=== PATIENT | female | born 1950 | race Two or more races ===

== ENCOUNTER 2016-04-27 21:31 | Inpatient (IN) | payer MEDICARE, MEDICAID ==
[~2016-04-27] VITALS: Ht 162.6 cm; Wt 61.2 kg
[~2016-04-27 21:31] MED LIST: CHANTIX1 MG PO; CITALOPRAM HBR40 M1 ORAL; DOCUSATE SODIU100 MG ORAL; GABAPENTIN300 MG ORAL; HEPARIN SO5000 UNIT2 SUBQ; SPIRIVA18 MCG INH
[2016-04-27] MEDS ORDERED: Albuterol ud Inhalation HHN ONE (21:45)
[2016-04-27] MEDS ORDERED: Ipratropium 0.02% Inh Soln 2.5ml UD HHN ONE (21:45)
[2016-04-27] MEDS ORDERED: Solu-MEDROL 125mg Inj IVP ONE (21:45)
--- NOTE | 2016-04-27 21:47 | Emergency Room Report ---
History of Present Illness General Chief Complaint: Chest Pain Source: Patient, EMS Present Illness HPI The patient presents with left-sided chest pain. Is pleuritic. Began while she was watching a football game. She's been wheezing and coughing up greenish brown phlegm. She does have a history of COPD in the past. The pain is sharp and does not radiate. Pain is sever 10/10 sharp. The patient had right shoulder surgery recently. She denies any swelling in her legs or pain. She denies any blood clots in the past. She denies fevers and chills. There is no nausea vomiting diarrhea dysuria. EMS gave the patient aspirin with some relief. Allergies: Coded Allergies: No Known Allergies (Unverified , 04/27/16) Patient History Past Medical History: see triage record Past Surgical History: other - Shoulder surgery Social History: Reports: smoking, Denies: alcohol use, drug use Social History Narrative rehab facility Reviewed Nursing Documentation: PMH: Agreed, PSxH: Agreed Nursing Documentation-PMH Past Medical History: No History, Except For History Of Psychiatric Problem: Yes - BIPOLAR Physical Exam Vital Signs Date Time Temp Pulse Resp B/P Pulse Ox O2 Delivery O2 Flow Rate FiO2 04/27/16 21:22 98.4 103 16 106/72 98 Room Air Sp02 EP Interpretation: reviewed, normal General Appearance: well appearing, no apparent distress, GCS 15 Head: normocephalic Eyes: bilateral eye PERRL, bilateral eye normal inspection ENT: moist mucus membranes Neck: supple Respiratory: rhonchi, wheezing, expiration, inspiration Cardiovascular #1: regular rate, rhythm Cardiovascular #2: 2+ radial (R) Gastrointestinal: normal inspection, normal bowel sounds, non tender, no mass, non-distended Musculoskeletal: digits/nails normal, no calf tenderness, Genesis's Sign negative , other - R shoulder in immobilizer Neurologic: alert, oriented x3 Psychiatric: mood/affect normal - concrete thinking Skin: normal inspection, warm/dry Medical Decision Making Diagnostic Impression: Primary Impression: Pneumonia Qualified Codes: J18.9 - Pneumonia, unspecified organism Additional Impressions: Bronchospasm Status post shoulder replacement Qualified Codes: Z96.611 - Presence of right artificial shoulder joint ER Course The patient presents with left-sided pleuritic chest pain. Exam has evidence of bronchospasm. Differential includes pneumonia, pleurisy, pulmonary embolus, acute coronary syndrome amongst others. Emergent evaluation is undertaken EKG, labs, chest x-ray. The patient received aspirin in the field. She has some relief with this. Will focus on treating bronchospasm and also giving her analgesia. EKG is normal, chest x-ray shows left lower lobe infiltrate with some scarring bilaterally. Plantar significant for negative troponin and elevated white count. The patient is improved after breathing treatments. She was still complaining about pain and therefore morphine was ordered. She had some relief with this. Clinically there is no evidence of pulmonary embolus. The patient is admitted to medical floor under the care of Dr. Malagon. Laboratory Tests Test 04/27/16 21:55 04/27/16 22:30 04/27/16 23:20 White Blood Count 17.0 K/UL (4.8-10.8) H Red Blood Count 3.71 M/UL (4.20-5.40) L Hemoglobin 10.6 G/DL (12.0-16.0) L Hematocrit 34.1 % (37.0-47.0) L Mean Corpuscular Volume 92 FL (80-99) Mean Corpuscular Hemoglobin 28.6 PG (27.0-31.0) Mean Corpuscular Hemoglobin Concent 31.1 G/DL (32.0-36.0) L Red Cell Distribution Width 16.1 % (11.6-14.8) H Platelet Count 686 K/UL (150-450) H Mean Platelet Volume 5.0 FL (6.5-10.1) L Neutrophils (%) (Auto) 75.6 % (45.0-75.0) H Lymphocytes (%) (Auto) 12.2 % (20.0-45.0) L Monocytes (%) (Auto) 8.7 % (1.0-10.0) Eosinophils (%) (Auto) 2.1 % (0.0-3.0) Basophils (%) (Auto) 1.5 % (0.0-2.0) Sodium Level 138 mEQ/L (135-145) Potassium Level 3.9 mEQ/L (3.4-4.9) Chloride Level 96 mEQ/L (98-107) L Carbon Dioxide Level 32 mEQ/L (20-30) H Anion Gap 10 (5-15) Blood Urea Nitrogen 6 mg/dL (7-23) L Creatinine 0.6 mg/dL (0.5-0.9) Estimate Glomerular Filtration Rate > 60 mL/min (>60) Glucose Level 99 mg/dL (74-106) Lactic Acid Level 1.10 mmol/L (0.66-2.22) Calcium Level 9.1 mg/dL (8.6-10.2) Total Bilirubin 0.3 mg/dL (0.0-1.2) Aspartate Amino Transferase (AST) 21 U/L (5-40) Alanine Aminotransferase (ALT) 25 U/L (3-33) Alkaline Phosphatase 144 U/L (35-104) H Troponin I < 0.30 ng/mL (<=0.30) Total Protein 7.3 g/dL (6.6-8.7) Albumin 3.1 g/dL (3.5-5.2) L Globulin 4.2 g/dL Albumin/Globulin Ratio 0.7 (1.0-2.7) L Pro-B-Type Natriuretic Peptide 103 pg/mL (0-125) Urine Color Yellow Urine Appearance Clear Urine pH 7 (4.5-8.0) Urine Specific [place] 1.005 (1.005-1.035) Urine Protein Negative (NEGATIVE) Urine Glucose (UA) Negative (NEGATIVE) Urine Ketones Negative (NEGATIVE) Urine Occult Blood 1+ (NEGATIVE) H Urine Nitrite Negative (NEGATIVE) Urine Bilirubin Negative (NEGATIVE) Urine Urobilinogen 8 MG/DL (0.0-1.0) H Urine Leukocyte Esterase 1+ (NEGATIVE) H Urine RBC 0-2 /HPF (0 - 2) Urine WBC 0-2 /HPF (0 - 2) Urine Squamous Epithelial Cells Many /LPF (NONE/OCC) H Urine Bacteria Few /HPF (NONE) Microbiology Date/Time Source Procedure Growth Status 04/27/16 21:58 Nasal Nares Influenza Types A,B Antigen (TRACY) - Final Complete EKG Diagnostic Results Rate: normal Rhythm: NSR ST Segments: no acute changes Rhythm Strip Diag. Results EP Interpretation: yes Rhythm: NSR, no PVC's, no ectopy Chest X-Ray Diagnostic Results EP Interpretation: Yes Findings: no effusion, no pneumothorax, other - L infiltrate and scarring Number of Views: 1 Last Vital Signs Date Time Temp Pulse Resp B/P Pulse Ox O2 Delivery O2 Flow Rate FiO2 04/28/16 00:50 99.2 97 15 96/70 93 Nasal Cannula 2.0 92 Status: improved Disposition: ADMITTED INPATIENT Condition: Serious Alireza Roque M.D. Apr 27, 2016 21:47
[2016-04-27 22:08] LABS: BASOPHILS % (AUTO) 1.5 % (0.0-2.0); EOSINOPHILS % (AUTO) 2.1 % (0.0-3.0); LYMPHOCYTES % (AUTO) 12.2 % (20.0-45.0); MEAN CORPUSCULAR HEMOGLOBIN 28.6 PG (27.0-31.0); MEAN CORPUSCULAR HGB CONC 31.1 G/DL (32.0-36.0); MEAN CORPUSCULAR VOLUME 92 FL (80-99); MONOCYTES % (AUTO) 8.7 % (1.0-10.0); NEUTROPHILS % (AUTO) 75.6 % (45.0-75.0); PLATELET COUNT 686 K/UL (150-450); RED BLOOD COUNT 3.71 M/UL (4.20-5.40); RED CELL DISTRIBUTION WIDTH 16.1 % (11.6-14.8)
[2016-04-27 22:21] LABS: TROPONIN I < 0.30 ng/mL (<=0.30)
[2016-04-27 22:22] LABS: ALANINE AMINOTRANSFERASE 25 U/L (3-33); ALBUMIN/GLOBULIN RATIO 0.7 (1.0-2.7); ANION GAP 10 (5-15); ASPARTATE AMINO TRANSFERASE 21 U/L (5-40); CALCIUM 9.1 mg/dL (8.6-10.2); CARBON DIOXIDE 32 mEQ/L (20-30); CHLORIDE 96 mEQ/L (98-107); CREATININE 0.6 mg/dL (0.5-0.9); GLOMERULAR FILTRATION RATE > 60 mL/min (>60); HEMOLYSIS 1; POTASSIUM 3.9 mEQ/L (3.4-4.9); SODIUM 138 mEQ/L (135-145); TOTAL PROTEIN 7.3 g/dL (6.6-8.7)
[2016-04-27] MEDS ORDERED: Azithromycin 500 MG in NS 275 ML IVPB ONE (22:30)
[2016-04-27] MEDS ORDERED: Morphine Sulfate 4mg/ml Inj IVP ONE (22:30)
[2016-04-27] MEDS ORDERED: cefTRIAXone 1 GM in NS 55 ML IVPB ONE (22:30)
[2016-04-27] MEDS ORDERED: Azithromycin Inj IV ONE (22:51)
[2016-04-27 23:11] VITALS: BP 114/61
[2016-04-27 23:37] LABS: APPEARANCE,URINE CLEAR; KETONES,URINE NEGATIVE (NEGATIVE); LEUKOCYTE ESTERASE ,URINE 1+ (NEGATIVE); NITRITE,URINE NEGATIVE (NEGATIVE); PH,URINE 7 (4.5-8.0); PROTEIN,URINE NEGATIVE (NEGATIVE); UROBILINOGEN,URINE 8 MG/DL (0.0-1.0)
[2016-04-27 23:38] VITALS: BP 122/68
[2016-04-27] MEDS ORDERED: Morphine Sulfate 2mg/ml Inj IVP PRN (23:45)
[2016-04-27] MEDS ORDERED: Milk of Magnesia 30ml Ud ORAL PRN (23:45)
[2016-04-27 23:51] LABS: BACTERIA,URINE FEW /HPF; RBC,URINE 0-2 /HPF (0 - 2); SQUAMOUS EPITHELIAL CELL,UR MANY /LPF (NONE/OCC); WBC,URINE 0-2 /HPF (0 - 2)
[2016-04-28] VITALS (8 sets, daily range): BP systolic 92–147; BP diastolic 53–82
[2016-04-28] MEDS: DuoNeb 0.5-3(2.5)mg/3ml neb HHN SCH ×4 (02:00→23:49)
[2016-04-28] MEDS: Heparin 5000 units/ml inj SUBQ SCH ×3 (02:04→21:17)
[2016-04-28] MEDS: Citalopram 20mg Tab ORAL SCH (08:31)
[2016-04-28] MEDS: Docusate 100mg cap ORAL SCH ×2 (08:32→18:08)
[2016-04-28] MEDS: Morphine Sulfate 4mg/ml Inj IVP PRN ×5 (08:34→21:14)
--- NOTE | 2016-04-28 08:53 | Diagnostic Imaging Report ---
Indications: Shortness of breath, COPD Technique: Portable AP chest Findings: Comparison: None Patchy ovular opacity is present in the lateral aspect of left lung base, obscuring the left costophrenic angle. Increased interstitial markings are present in both lower lung zones. Central pulmonary vasculature prominent. Heart size, peripheral pulmonary vasculature within normal limits. No right pleural abnormality. Right shoulder prosthesis. Chronic appearing contour deformity mid diaphysis left clavicle. IMPRESSION: Left lower lobe alveolar opacity compatible with but not specific for pneumonia Associated small left pleural effusion not excludable Superimposed pulmonary bibasal interstitial disease, nonspecific, acuity indeterminate. This may be chronic in the setting of COPD. Acute interstitial infiltrate, whether congestive or inflammatory cannot be excluded. Suggestion of development of pulmonary arterial hypertension Previous right shoulder arthroplasty Old, healed left clavicle fracture
[2016-04-28] MEDS ORDERED: cefTRIAXone 1 GM in D5W 50 ML IV SCH (21:00)
[2016-04-29] VITALS: BP 102/69
[2016-04-29] MEDS: Morphine Sulfate 4mg/ml Inj IVP PRN ×5 (00:29→21:44)
[2016-04-29 04:00] VITALS: BP 106/71
--- NOTE | 2016-04-29 04:47 | History and Physical Report ---
DATE OF ADMISSION: 04/27/2016 CHIEF COMPLAINT: Left-sided chest pain, cough, and sputum production. HISTORY OF PRESENT ILLNESS: The patient is a 65-year-old female, who was at [facility] in end of March for right shoulder surgery. She said that she was discharged to [facility]. She has been coughing and having sputum production for the past week. Last night she was watching TV, a football game and she started having severe left-sided chest pain, which was pleuritic. The patient was seen in the emergency room here and was admitted with diagnosis of pneumonia. She does have left lower lung density, which is consistent with an infiltrate. She tells me that even in March when she was at [facility], she was told by her steel wheel engraver that she had pneumonia. It is unclear if she was continued on antibiotics in the [place] [facility]. In any case, I would not cut part of her medication list. The patient has a long history of smoking 50 pack a year, but she stopped three months ago. PAST MEDICAL HISTORY: Includes depression. There is a report that patient is bipolar, but she denies it. There is history of right shoulder surgery as mentioned. MEDICATIONS: Reviewed. ALLERGIES: No known drug allergies. SOCIAL HISTORY: Previous smoker. No history of alcohol abuse. REVIEW OF SYSTEMS: Noncontributory except above. PHYSICAL EXAMINATION: GENERAL: The patient is a pleasant female, in no acute distress. VITAL SIGNS: Blood pressure 96/54, pulse 88, temperature 97.4, and respiratory rate is 21. HEENT: Somewhat pale conjunctivae. Anicteric sclerae. NECK: Supple. Lungs crackles bibasilar. ABDOMEN: Soft, nontender. EXTREMITIES: No cyanosis or edema. The patient has right shoulder in a sling. LABORATORY FINDINGS: [place] [address], hematocrit 34.1, hemoglobin is 10.6, and platelets 686,000. Chemistry panel shows serum sodium 138, potassium 3.9, chloride 96, CO2 10, BUN 6, creatinine 0.6. AST 21 and ALT 25. ASSESSMENT: This is a 65-year-old female, who was admitted with diagnosis of pneumonia, left lower lobe. She has history of chronic obstructive pulmonary disease. The question is if she has underlying malignancy since it appears to be a prolonged pneumonia now a few weeks. PLAN: The patient was already started on IV antibiotics, bronchodilators, and pain medication. The patient will be seen by pulmonary consultation. I will order a CT scan of the chest to see if the patient does have any mass. Gabriel Malagon M.D. DR: Sapna JOB#: [id number] CC:
[2016-04-29] MEDS: DuoNeb 0.5-3(2.5)mg/3ml neb HHN SCH ×3 (07:29→23:30)
[2016-04-29 08:15] VITALS: BP 109/76
[2016-04-29] MEDS: Citalopram 20mg Tab ORAL SCH (08:18)
[2016-04-29] MEDS: Docusate 100mg cap ORAL SCH ×2 (08:19→17:35)
[2016-04-29] MEDS: Heparin 5000 units/ml inj SUBQ SCH ×2 (08:26→21:42)
[2016-04-29 11:59] VITALS: BP 101/65
--- NOTE | 2016-04-29 12:57 | Diagnostic Imaging Report ---
Indications: Left-sided pleuritic chest pain, productive cough Technique: Continuous helical CT imaging of the thorax and upper abdomen was performed with automatic exposure control following intravenous administration of nonionic iodine contrast, on a Siemens sensation [address] scanner. Axial, coronal, and sagittal images were reconstructed at 5 mm slice thickness. CTDI volume(s): 8, 41, 18 mGy Total DLP: 798 mGy-cm Findings: Comparison: Chest radiograph 04/27/16 Lungs are symmetrically hyperinflated with moderate to severe emphysematous changes throughout. Interlobular septal thickening is scattered throughout the periphery of both lungs, most prominent in the lower lobes. Scattered areas of small caliber interstitial nodularity are present in the periphery of both lungs. Superimposed patchy areas of irregular parenchymal consolidation are present in the basal aspect of the superior segment of the left lower lobe and more prominently in the dependent portions of lingula and both lower lobes, left greater than right. Mild bilateral bronchial wall thickening is present. No parenchymal, hilar, or mediastinal calcifications are demonstrated. Small right pleural effusion is present. The heart is normal in size. No pericardial abnormality detected. Mild scattered arterial mural calcifications. Vascular nonaneurysmal. Central pulmonary arteries not enlarged and without obvious intraluminal filling defect. Right shoulder prosthesis in place, generating artifact which degrades multiple images. Chest wall soft tissues otherwise nonfocal. Gallbladder absent. Surgical clips in gallbladder fossa. 4 cm circumscribed low-attenuation mass left renal cortex. Multilevel disc space narrowing with marginal osteophyte formation thoracic, lower cervical, upper lumbar spine. IMPRESSION: Findings compatible with COPD, mixed type, with prominent emphysematous changes and interstitial disease/fibrosis. Superimposed interstitial nodularity, nonspecific. Tuberculosis not excludable. Correlate clinically. Multifocal patchy parenchymal consolidation. Superimposed acute pneumonias must be suspected. Underlying neoplasm not excludable. Small right pleural effusion, likely reactive to above Mild arteriosclerosis Previous right shoulder arthroplasty, cholecystectomy Left renal cortical cyst Degenerative spondylosis
--- NOTE | 2016-04-29 14:38 | General Progress Note ---
Assessment/Plan Problem List: (1) Bronchospasm ICD Codes: J98.01 - Acute bronchospasm SNOMED: 0335385 (2) Pneumonia ICD Codes: J18.9 - Pneumonia, unspecified organism SNOMED: 575001542 Qualifiers: Qualified Codes: J18.9 - Pneumonia, unspecified organism (3) Arthritis of right shoulder region SNOMED: 924773369, 277164540 Assessment/Plan Abxs Bronchodilators pulm consult CT chest Subjective Allergies: Coded Allergies: TETRACYCLINE (Verified Allergy, Severe, Itching, 04/28/16) SWELLING/ITCHING Subjective feels better Objective Last 24 Hour Vital Signs Date Time Temp Pulse Resp B/P Pulse Ox O2 Delivery O2 Flow Rate FiO2 04/29/16 11:59 97.3 88 18 101/65 96 Nasal Cannula 2.0 04/29/16 08:15 98.2 87 20 109/76 96 Room Air 04/29/16 04:00 97.5 85 20 106/71 97 Room Air 04/29/16 00:59 97.5 04/29/16 00:00 97.7 104 22 102/69 94 Room Air 04/28/16 23:51 100 20 99 Nasal Cannula 2.0 28 04/28/16 23:30 98 20 97 Nasal Cannula 2.0 28 04/28/16 20:00 97.5 102 21 112/82 93 Nasal Cannula 2.0 04/28/16 20:00 97 Nasal Cannula 2.0 28 04/28/16 20:00 Nasal Cannula 2.0 28 04/28/16 16:00 98.0 106 20 110/60 100 Room Air 98 04/28/16 15:45 89 16 99 Room Air 04/28/16 15:32 84 16 Room Air Intake and Output 04/28/16 04/29/16 19:00 07:00 Intake Total 720 ml 410 ml Balance 720 ml 410 ml Intake Oral 720 ml 360 ml IV Total 50 ml # Voids 2 # Bowel Movements 1 Height (Feet): 5 Height (Inches): 4.00 Weight (Pounds): 135 Cardiovascular: normal rate Respiratory/Chest: expiratory wheezing Edema: no edema noted RAQUEL Freeman Apr 29, 2016 14:38
[2016-04-29 16:05] VITALS: BP 101/70
[2016-04-29 20:05] VITALS: BP 99/74
[2016-04-29] MEDS: Advair 250/50 Inhaler - 14 dose INH SCH (21:00)
[2016-04-29] MEDS: Piperacillin/Tazobactam 3.375 GM in D5W 110 ML IVPB SCH (21:43)
--- NOTE | 2016-04-29 21:57 | Consultation ---
DATE OF CONSULTATION: 04/29/2016 INFECTIOUS DISEASE CONSULTATION PRIMARY ATTENDING PHYSICIAN: Gabriel Malagon M.D. REASON FOR CONSULTATION: Pneumonia. HISTORY OF PRESENT ILLNESS: The patient is a 65-year-old female admitted on 04/27/2016 from home complaining of coughing, wheezing, and pleuritic chest pain. The patient had a recent history of right shoulder surgery on April 11 and after that she spent one week in the nursing facility. She had coughing that was productive four days before the admission and chest pain in the right side. PAST MEDICAL HISTORY: Significant for bipolar disorder, COPD, emphysema, nicotine abuse. Quit smoking three months ago. PAST SURGICAL HISTORY: She had right shoulder replacement, she had left shoulder rotator cuff surgery, history of cholecystectomy, tubal ligation, and hemorrhoidectomy. MEDICATIONS: Azithromycin, ceftriaxone, Celexa, Colace, Spiriva, gabapentin, heparin, DuoNeb inhaler, morphine. ALLERGIES: Allergic to tetracycline. SOCIAL HISTORY: Lives at home. The patient has history of alcohol abuse and smoking, quit smoking three months ago. She smoked almost 50-pack year. She has three children, two of the children have bipolar disorder. REVIEW OF SYSTEMS: No fever. No chills. The patient gaining weight after stopped smoking. No nausea. No vomiting. No diarrhea. The patient has productive coughing, chest pain that is mostly chest wall pain below the left breast and in the back on the left side. PHYSICAL EXAMINATION: VITAL SIGNS: Temperature is 98.2 degrees, pulse 87, and blood pressure 119/76. No fever in the hospital. HEENT: Head And Neck: [place] conjunctivae. No oral lesions. Has dentures. LUNGS: Decreased expansion. HEART: Regular. CHEST: There is tenderness in chest wall especially in the back below the left shoulder. ABDOMEN: Soft and nontender. EXTREMITIES: The patient has right arm sling, has a surgical line in the right shoulder that seems to be clean. LABORATORY AND DIAGNOSTIC DATA: Sodium 138, potassium 3.9, chloride 96, bicarbonate 32, BUN 6, creatinine 0.6, glucose 99. WBC 17, hemoglobin 10.6, hematocrit 34.1, platelets 686,000. Chest x-ray showed left lung infiltrates. Influenza test is negative. Blood culture x1 negative. IMPRESSION: 1. Pneumonia in the left lung. 2. The patient also has history of chronic obstructive pulmonary disease and emphysema. 3. Recent right shoulder surgery. 4. Bipolar disorder. RECOMMENDATIONS: We will continue with current antibiotics Zithromax and Rocephin. We will follow up CT scan of the chest. We will follow cultures including sputum culture. I thank Dr. Malagon, for involving me in the care of this patient. Godwin Malagon M.D. DR: Beatrice JOB#: [id number] CC:
--- NOTE | 2016-04-29 23:27 | Consultation ---
DATE OF CONSULTATION: PULMONARY CONSULTATION REASON FOR CONSULTATION: Chronic obstructive pulmonary disease and pneumonia. HISTORY OF PRESENT ILLNESS: The patient is a 65-year-old female with a history of chronic obstructive pulmonary disease and chronic hypercapnic respiratory failure, who is on a trilogy ventilator at home, who presents from a SNF with which cough, shortness of breath, wheezing, leukocytosis, and a possible recurrent pneumonia. She has a trilogy ventilator at home, but they were not able to supply her with at the shelter, so she has been on BiPAP 01/16. She saw Dr. Roberts last on 04/17/2016 when she was discharged to the rehabilitation center from [facility]. She was admitted for reverse total shoulder arthroplasty on 04/11/2016 and was complicated by an exacerbation of respiratory failure. She states that she has not smoked since she left the hospital and she has been stable off Chantix. Dr. Roberts had planned for CT chest as an outpatient on 04/17/2016, but this was not obtained. PAST MEDICAL HISTORY: 1. Chronic obstructive pulmonary disease (FEV1 1.31). 2. Chronic hypercapnic respiratory failure, on the trilogy 100 ventilator at home. 3. Depression. 4. Tobacco use disorder. 5. Severe right shoulder osteoarthritis with rotator cuff tear status post reverse total shoulder arthroplasty on 04/11/2016. 6. Iron-deficiency anemia. 7. Chronic back and lower leg pain. 8. Restless legs syndrome. PAST SURGICAL HISTORY: 1. Tubal ligation. 2. Cholecystectomy. 3. Left inguinal hernia repair. 4. Hemorrhoid repair. 5. Bilateral rotator cuff repair. MEDICATIONS: Prior to admission medications reviewed. ALLERGIES: Tetracycline. SOCIAL HISTORY: She is . Recently moved here from [place]. Smoked a quarter pack per day, quit in November 2015. Previous alcohol, two to three drinks daily, stopped two years ago. FAMILY HISTORY: Father at 82 from pancreatic cancer. Grandmother had cancer, primary unknown. No significant other pulmonary disorders in the family. REVIEW OF SYSTEMS: Negative other than history of present illness. PHYSICAL EXAMINATION: VITAL SIGNS: Temperature max 97.3 degrees, heart rate 96, blood pressure 100/70, and saturating 93% to 98% on two liters. GENERAL: She is a well-developed and well-nourished female, in no acute distress. Awake, alert, and oriented x3. HEENT: Normocephalic and atraumatic. Oropharynx is clear with moist mucous membranes. NECK: Supple. CHEST: Clear, but distant with scattered rales. HEART: Regular rate and rhythm. ABDOMEN: Soft and nontender. EXTREMITIES: No cyanosis, clubbing, or edema. ANCILLARY DATA: White count 17, hemoglobin 10.6, and platelet count 686,000. Urinalysis is negative. Chemistry, sodium 138, potassium 3.9, chloride 96, bicarbonate 32, BUN 6, and creatinine 0.6. LFTs normal except for an alkaline phosphatase of 144. Troponin negative. BNP 103. Blood cultures negative. Influenza from the ER showed no growth. ASSESSMENT: The patient is a 65-year-old female with severe chronic obstructive pulmonary disease (FEV1 1.31) and chronic hypercapnic respiratory failure presenting from a shelter with acute on chronic shortness of breath concerning for a superimposed healthcare-associated tracheobronchitis or pneumonia. PROBLEM LIST: 1. Acute on chronic respiratory illness likely superimposed healthcare-associated tracheobronchitis versus early pneumonia. 2. Severe chronic obstructive pulmonary disease with chronic hypercapnic respiratory failure. 3. Nocturnal ventilator dependence. 4. Recent right shoulder reverse total arthroplasty on 04/11/2016 for osteoarthritis. 5. Iron-deficiency anemia. 6. Depression. 7. History of bibasilar pulmonary infiltrates versus atelectasis. 8. Tobacco use disorder. Under admission. 9. Depression. TREATMENT PLAN: 1. Optimize pulmonary hygiene and mobilize as tolerated. 2. Continue round the clock and p.r.n. bronchodilators. 3. Continue Advair and Spiriva. 4. I will switch antibiotics to Zosyn given recent hospitalization and shelter resident. 5. Follow up sputum culture and respiratory panel. 6. We will start the patient back on BiPAP 10/5 at bedtime and p.r.n. 7. We will check ABG. 8. Minimize sedation. 9. DVT prophylaxis. Heparin subcutaneous. 10. Monitor volumes. 11. Aspiration precautions. Case discussed with the patient's primary construction laborer, Dr. Roberts as well. Dr. Malagon, thank you for allowing me to assist in the care of your patient. If I may be of any assistance in the future, please do not hesitate to ask. Zeke Collado M.D. DR: BRITTANY JOB#: [id number] CC:
[2016-04-30] VITALS: BP 94/63
[2016-04-30] MEDS: Morphine Sulfate 4mg/ml Inj IVP PRN ×5 (00:54→19:48)
[2016-04-30 04:00] VITALS: BP 97/70
[2016-04-30] MEDS: Piperacillin/Tazobactam 3.375 GM in D5W 110 ML IVPB SCH ×3 (06:16→22:24)
[2016-04-30 07:24] LABS: BASOPHILS % (AUTO) 1.1 % (0.0-2.0); EOSINOPHILS % (AUTO) 1.8 % (0.0-3.0); LYMPHOCYTES % (AUTO) 16.6 % (20.0-45.0); MEAN CORPUSCULAR HEMOGLOBIN 28.5 PG (27.0-31.0); MEAN CORPUSCULAR HGB CONC 31.4 G/DL (32.0-36.0); MEAN CORPUSCULAR VOLUME 91 FL (80-99); MEAN PLATELET VOLUME 4.7 FL (6.5-10.1); MONOCYTES % (AUTO) 10.2 % (1.0-10.0); NEUTROPHILS % (AUTO) 70.3 % (45.0-75.0); PLATELET COUNT 654 K/UL (150-450); RED BLOOD COUNT 3.52 M/UL (4.20-5.40); RED CELL DISTRIBUTION WIDTH 16.7 % (11.6-14.8); WHITE BLOOD COUNT 11.5 K/UL (4.8-10.8)
[2016-04-30] MEDS: Advair 250/50 Inhaler - 14 dose INH SCH ×2 (07:29→20:33)
[2016-04-30] MEDS: DuoNeb 0.5-3(2.5)mg/3ml neb HHN SCH ×3 (07:29→20:34)
[2016-04-30 07:37] LABS: ANION GAP 11 (5-15); CARBON DIOXIDE 31 mEQ/L (20-30); CHLORIDE 95 mEQ/L (98-107); CREATININE 0.8 mg/dL (0.5-0.9); GLOMERULAR FILTRATION RATE > 60 mL/min (>60); HEMOLYSIS 3; POTASSIUM 4.2 mEQ/L (3.4-4.9); SODIUM 137 mEQ/L (135-145)
[2016-04-30 08:00] VITALS: BP 97/71
[2016-04-30] MEDS: Docusate 100mg cap ORAL SCH ×2 (08:33→18:46)
[2016-04-30] MEDS: Citalopram 20mg Tab ORAL SCH (08:33)
[2016-04-30] MEDS: Heparin 5000 units/ml inj SUBQ SCH ×2 (08:37→20:51)
--- NOTE | 2016-04-30 09:52 | Pulmonology Progress Note ---
Assessment/Plan Problems: (1) COPD (chronic obstructive pulmonary disease) (2) Pneumonia Assessment/Plan ASSESSMENT: The patient is a 65-year-old female with severe chronic obstructive pulmonary disease (FEV1 1.31) and chronic hypercapnic respiratory failure presenting from a half-way with acute on chronic shortness of breath concerning for a superimposed healthcare-associated tracheobronchitis or pneumonia. 04/29/16 CT CHEST: EMPHYSEMATOUS CHANGES, B PATCHY AND NODULAR INFILTRATES WITH MORE DENSE AREAS OF CONSOLIDATION B LL PROBLEM LIST: 1. Acute on chronic respiratory illness likely superimposed pneumonia. 2. Severe chronic obstructive pulmonary disease with chronic hypercapnic respiratory failure. 3. Nocturnal ventilator dependence. 4. B nodular and coalescing infiltrates concerning for an atypical infectious process with likely superimposed bacterial PNA 5. Recent right shoulder reverse total arthroplasty on 04/11/2016 for osteoarthritis. 6. Iron-deficiency anemia. 7. History of bibasilar pulmonary infiltrates versus atelectasis. 8. Tobacco use disorder - in remission 9. Depression. TREATMENT PLAN: 1. Optimize pulmonary hygiene and mobilize as tolerated. 2. Continue round the clock and p.r.n. bronchodilators. 3. Continue Advair and Spiriva. 4. Continue Zosyn, F/U ID recs 5. Follow up sputum culture and respiratory panel. Atypical serologies sent off as well 6. 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 BiPAP 10/5 at bedtime and p.r.n. 8. F/U ABG 9. Minimize sedation. 10. DVT prophylaxis. Heparin subcutaneous. 11. Monitor volumes. 12. Aspiration precautions. Subjective Allergies: Coded Allergies: TETRACYCLINE (Verified Allergy, Severe, Itching, 04/28/16) SWELLING/ITCHING Subjective Tm 99.5, used BiPAP O/N, now on baseline 2L Cough better/mobilizing, less SOB, no F/C, sitting in chair Objective Last 24 Hour Vital Signs Date Time Temp Pulse Resp B/P Pulse Ox O2 Delivery O2 Flow Rate FiO2 04/30/16 08:00 95.6 94 20 97/71 94 Nasal Cannula 2.0 04/30/16 04:00 97.2 84 19 97/70 94 Bi-pap 04/30/16 01:24 99.5 04/30/16 00:59 97 20 97 Facial 28 04/30/16 00:37 28 04/30/16 00:00 99.5 87 18 94/63 92 Nasal Cannula 2.0 04/29/16 23:45 91 20 98 Bi-pap 28 04/29/16 23:30 90 18 90 Bi-pap 28 04/29/16 20:05 98.6 96 20 99/74 93 Nasal Cannula 2.0 04/29/16 19:43 Nasal Cannula 2.0 28 04/29/16 19:43 94 Nasal Cannula 2.0 28 04/29/16 16:05 97.8 96 20 101/70 98 Nasal Cannula 2.0 04/29/16 15:50 91 20 99 Nasal Cannula 2.0 28 04/29/16 15:36 90 19 99 Nasal Cannula 2.0 28 04/29/16 15:36 28 04/29/16 11:59 97.3 88 18 101/65 96 Nasal Cannula 2.0 Intake and Output 04/29/16 04/30/16 19:00 07:00 Intake Total 540 ml 270.0 ml Balance 540 ml 270.0 ml Intake Oral 540 ml 160 ml IV Total 110.0 ml # Voids 2 2 General Appearance: no acute distress, cachetic HEENT: normocephalic, atraumatic, mucous membranes moist Respiratory/Chest: lungs clear - but distant, no respiratory distress, no accessory muscle use Cardiovascular: normal peripheral pulses, normal rate, regular rhythm Abdomen: normal bowel sounds, soft, non tender, no organomegaly, non distended , no mass Extremities: no cyanosis, no clubbing, no edema Microbiology Date/Time Source Procedure Growth Status 04/27/16 22:30 Blood Blood Culture - Preliminary NO GROWTH AFTER 48 HOURS Resulted 04/27/16 22:15 Blood Blood Culture - Preliminary NO GROWTH AFTER 48 HOURS Resulted 04/27/16 21:58 Nasal Nares Influenza Types A,B Antigen (TRACY) - Final Complete Laboratory Tests 04/30/16 05:30: White Blood Count 11.5H, Red Blood Count 3.52L, Hemoglobin 10.0L, Hematocrit 32.0L, Mean Corpuscular Volume 91, Mean Corpuscular Hemoglobin 28.5, Mean Corpuscular Hemoglobin Concent 31.4L, Red Cell Distribution Width 16.7H, Platelet Count 654H, Mean Platelet Volume 4.7L, Neutrophils (%) (Auto) 70.3, Lymphocytes (%) (Auto) 16.6L, Monocytes (%) (Auto) 10.2H, Eosinophils (%) (Auto ) 1.8, Basophils (%) (Auto) 1.1, Sodium Level 137, Potassium Level 4.2, Chloride Level 95L, Carbon Dioxide Level 31H, Anion Gap 11, Blood Urea Nitrogen 10, Creatinine 0.8, Estimat Glomerular Filtration Rate > 60, Glucose Level 86, Calcium Level 9.0 Current Medications Medications (Trade) Dose Ordered Sig/Josh Route PRN Reason Start Time Stop Time Status Last Admin Dose Admin Albuterol/ Ipratropium (DuoNeb 0.5-3(2.5)mg/3ml) 3 ml Q8HRT HHN 04/28/16 02:00 05/03/16 01:59 04/30/16 07:29 Citalopram Hydrobromide (celeXA) 40 mg DAILY ORAL 04/28/16 09:00 05/28/16 08:59 04/30/16 08:33 Docusate Sodium (Colace) 100 mg TWICE A DAY ORAL 04/28/16 09:00 05/28/16 08:59 04/30/16 08:33 Gabapentin (Neurontin) 300 mg THREE TIMES A DAY ORAL 04/28/16 02:00 05/28/16 01:59 04/30/16 08:33 Heparin Sodium (Porcine) (Heparin 5000 units/ml) 5,000 units EVERY 12 HOURS SUBQ 04/28/16 02:00 05/28/16 01:59 04/30/16 08:37 Magnesium Hydroxide (Mom) 30 ml HSPRN PRN ORAL Constipation 04/27/16 23:45 05/27/16 23:44 Morphine Sulfate (Morphine Sulfate) 2 mg Q3H PRN IVP Moderate Pain (Pain Scale 4-6) 04/27/16 23:45 05/04/16 23:44 Morphine Sulfate (Morphine Sulfate) 4 mg Q3H PRN IVP Severe Pain (Pain Scale 7-10) 04/27/16 23:45 05/04/16 23:44 04/30/16 09:10 Non-Formulary Medication (Non-Formulary Med) 1 ea DAILY ORAL 04/29/16 09:00 05/29/16 08:59 UNV Piperacillin Sod/ Tazobactam Sod/ Dextrose (Zosyn/D5W 100ml) 110 ml @ 27.5 mls/hr EVERY 8 HOURS IVPB 04/29/16 22:00 05/04/16 21:59 04/30/16 06:16 Ranitidine HCl (Zantac) 150 mg TWICE A DAY ORAL 04/28/16 09:00 05/28/16 08:59 04/30/16 08:33 Salmeterol Xinafoate/ Fluticasone 1 puffs 1 puffs Q12HR INH 04/29/16 21:00 05/29/16 20:59 04/30/16 07:29 Tiotropium [place] (Spiriva Inhaler) 1 puff DAILY INH 04/28/16 09:00 05/28/16 08:59 04/30/16 07:29 DENIS VEGA M.D. Apr 30, 2016 09:52
[2016-04-30 12:00] VITALS: BP 98/60
--- NOTE | 2016-04-30 14:03 | Infectious Diseases Prog Note ---
Assessment/Plan Assessment/Plan A: 1. Pneumonia in the left lung. 2. The patient also has history of chronic obstructive pulmonary disease and emphysema. 3. Recent right shoulder surgery. 4. Bipolar disorder. P: continue Zosyn will f/u cultures Subjective ROS Limited/Unobtainable: Yes Allergies: Coded Allergies: TETRACYCLINE (Verified Allergy, Severe, Itching, 04/28/16) SWELLING/ITCHING Objective Vital Signs Last 24 Hour Vital Signs Date Time Temp Pulse Resp B/P Pulse Ox O2 Delivery O2 Flow Rate FiO2 04/30/16 12:00 96.8 104 20 98/60 90 Room Air 04/30/16 09:40 95.6 04/30/16 08:00 95.6 94 20 97/71 94 Nasal Cannula 2.0 04/30/16 07:44 80 17 100 Nasal Cannula 2.0 28 04/30/16 07:29 28 04/30/16 07:29 86 18 95 Nasal Cannula 2.0 28 04/30/16 07:29 95 Nasal Cannula 2.0 28 04/30/16 07:29 Nasal Cannula 2.0 28 04/30/16 04:00 97.2 84 19 97/70 94 Bi-pap 04/30/16 00:59 97 20 97 Facial 28 04/30/16 00:37 28 04/30/16 00:00 99.5 87 18 94/63 92 Nasal Cannula 2.0 04/29/16 23:45 91 20 98 Bi-pap 28 04/29/16 23:30 90 18 90 Bi-pap 28 04/29/16 20:05 98.6 96 20 99/74 93 Nasal Cannula 2.0 04/29/16 19:43 Nasal Cannula 2.0 28 04/29/16 19:43 94 Nasal Cannula 2.0 28 04/29/16 16:05 97.8 96 20 101/70 98 Nasal Cannula 2.0 04/29/16 15:50 91 20 99 Nasal Cannula 2.0 28 04/29/16 15:36 90 19 99 Nasal Cannula 2.0 28 04/29/16 15:36 28 Height (Feet): 5 Height (Inches): 4.00 Weight (Pounds): 135 General Appearance: no acute distress HEENT: normocephalic Respiratory/Chest: lungs clear, decreased breath sounds Cardiovascular: normal rate Abdomen: soft, non tender Extremities: no edema, other - R shoulder sling Neurologic/Psychiatric: other Microbiology Date/Time Source Procedure Growth Status 04/27/16 22:30 Blood Blood Culture - Preliminary NO GROWTH AFTER 48 HOURS Resulted 04/27/16 22:15 Blood Blood Culture - Preliminary NO GROWTH AFTER 48 HOURS Resulted 04/27/16 21:58 Nasal Nares Influenza Types A,B Antigen (TRACY) - Final Complete Laboratory Tests Test 04/30/16 05:30 04/30/16 10:45 White Blood Count 11.5 K/UL (4.8-10.8) H Red Blood Count 3.52 M/UL (4.20-5.40) L Hemoglobin 10.0 G/DL (12.0-16.0) L Hematocrit 32.0 % (37.0-47.0) L Mean Corpuscular Volume 91 FL (80-99) Mean Corpuscular Hemoglobin 28.5 PG (27.0-31.0) Mean Corpuscular Hemoglobin Concent 31.4 G/DL (32.0-36.0) L Red Cell Distribution Width 16.7 % (11.6-14.8) H Platelet Count 654 K/UL (150-450) H Mean Platelet Volume 4.7 FL (6.5-10.1) L Neutrophils (%) (Auto) 70.3 % (45.0-75.0) Lymphocytes (%) (Auto) 16.6 % (20.0-45.0) L Monocytes (%) (Auto) 10.2 % (1.0-10.0) H Eosinophils (%) (Auto) 1.8 % (0.0-3.0) Basophils (%) (Auto) 1.1 % (0.0-2.0) Sodium Level 137 mEQ/L (135-145) Potassium Level 4.2 mEQ/L (3.4-4.9) Chloride Level 95 mEQ/L (98-107) L Carbon Dioxide Level 31 mEQ/L (20-30) H Anion Gap 11 (5-15) Blood Urea Nitrogen 10 mg/dL (7-23) Creatinine 0.8 mg/dL (0.5-0.9) Estimat Glomerular Filtration Rate > 60 mL/min (>60) Glucose Level 86 mg/dL (74-106) Calcium Level 9.0 mg/dL (8.6-10.2) Coccidioides Antibody (Comp Fix) Pending Cryptococcus Antigen Pending Legionella pneumophila Group 1 Ab Pending Legionella pneumophilia IgM Group 1 Pending Mycoplasma pneumoniae IgG Antibody Pending Mycoplasma pneumoniae IgM Ab Titer Pending Aspergillus flavus Antibody Pending Aspergillus fumigatus Antibody Pending Aspergillus niger Antibody Pending Current Medications Medications (Trade) Dose Ordered Sig/Josh Route PRN Reason Start Time Stop Time Status Last Admin Dose Admin Albuterol/ Ipratropium (DuoNeb 0.5-3(2.5)mg/3ml) 3 ml Q8HRT HHN 04/28/16 02:00 05/03/16 01:59 04/30/16 07:29 Citalopram Hydrobromide (celeXA) 40 mg DAILY ORAL 04/28/16 09:00 05/28/16 08:59 04/30/16 08:33 Docusate Sodium (Colace) 100 mg TWICE A DAY ORAL 04/28/16 09:00 05/28/16 08:59 04/30/16 08:33 Gabapentin (Neurontin) 300 mg THREE TIMES A DAY ORAL 04/28/16 02:00 05/28/16 01:59 04/30/16 12:48 Heparin Sodium (Porcine) (Heparin 5000 units/ml) 5,000 units EVERY 12 HOURS SUBQ 04/28/16 02:00 05/28/16 01:59 04/30/16 08:37 Magnesium Hydroxide (Mom) 30 ml HSPRN PRN ORAL Constipation 04/27/16 23:45 05/27/16 23:44 Morphine Sulfate (Morphine Sulfate) 2 mg Q3H PRN IVP Moderate Pain (Pain Scale 4-6) 04/27/16 23:45 05/04/16 23:44 Morphine Sulfate (Morphine Sulfate) 4 mg Q3H PRN IVP Severe Pain (Pain Scale 7-10) 04/27/16 23:45 05/04/16 23:44 04/30/16 12:38 Non-Formulary Medication (Non-Formulary Med) 1 ea DAILY ORAL 04/29/16 09:00 05/29/16 08:59 UNV Piperacillin Sod/ Tazobactam Sod/ Dextrose (Zosyn/D5W 100ml) 110 ml @ 27.5 mls/hr EVERY 8 HOURS IVPB 04/29/16 22:00 05/04/16 21:59 04/30/16 06:16 Ranitidine HCl (Zantac) 150 mg TWICE A DAY ORAL 04/28/16 09:00 05/28/16 08:59 04/30/16 08:33 Salmeterol Xinafoate/ Fluticasone 1 puffs 1 puffs Q12HR INH 04/29/16 21:00 05/29/16 20:59 04/30/16 07:29 Tiotropium [place] (Spiriva Inhaler) 1 puff DAILY INH 04/28/16 09:00 05/28/16 08:59 04/30/16 07:29 LEWIS VILLALBA Apr 30, 2016 14:03
--- NOTE | 2016-04-30 15:53 | Cardiology Report ---
APPROVED REPORT EKG Measurement Heart [id number] Normal sinus rhythm Normal ECG
[2016-04-30 15:54] VITALS: BP 98/69
--- NOTE | 2016-04-30 16:18 | General Progress Note ---
Assessment/Plan Problem List: (1) Bronchospasm ICD Codes: J98.01 - Acute bronchospasm SNOMED: 8940107 (2) Pneumonia ICD Codes: J18.9 - Pneumonia, unspecified organism SNOMED: 773703213 Qualifiers: Qualified Codes: J18.9 - Pneumonia, unspecified organism (3) Arthritis of right shoulder region ICD Codes: M19.90 - Unspecified osteoarthritis, unspecified site SNOMED: 054949726, 559540801 Assessment/Plan Abxs Bronchodilators will discuss with dr Collado Subjective Allergies: Coded Allergies: TETRACYCLINE (Verified Allergy, Severe, Itching, 04/28/16) SWELLING/ITCHING Subjective feels better Objective Last 24 Hour Vital Signs Date Time Temp Pulse Resp B/P Pulse Ox O2 Delivery O2 Flow Rate FiO2 04/30/16 15:54 98.2 97 20 98/69 91 Nasal Cannula 3.0 04/30/16 13:08 96.8 04/30/16 12:00 96.8 104 20 98/60 90 Room Air 04/30/16 08:00 95.6 94 20 97/71 94 Nasal Cannula 2.0 04/30/16 07:44 80 17 100 Nasal Cannula 2.0 28 04/30/16 07:29 28 04/30/16 07:29 86 18 95 Nasal Cannula 2.0 28 04/30/16 07:29 95 Nasal Cannula 2.0 28 04/30/16 07:29 Nasal Cannula 2.0 28 04/30/16 04:00 97.2 84 19 97/70 94 Bi-pap 04/30/16 00:59 97 20 97 Facial 28 04/30/16 00:37 28 04/30/16 00:00 99.5 87 18 94/63 92 Nasal Cannula 2.0 04/29/16 23:45 91 20 98 Bi-pap 28 04/29/16 23:30 90 18 90 Bi-pap 28 04/29/16 20:05 98.6 96 20 99/74 93 Nasal Cannula 2.0 04/29/16 19:43 Nasal Cannula 2.0 28 04/29/16 19:43 94 Nasal Cannula 2.0 28 Intake and Output 04/29/16 04/30/16 19:00 07:00 Intake Total 540 ml 270.0 ml Balance 540 ml 270.0 ml Intake Oral 540 ml 160 ml IV Total 110.0 ml # Voids 2 2 Laboratory Tests 04/30/16 05:30: White Blood Count 11.5H, Red Blood Count 3.52L, Hemoglobin 10.0L, Hematocrit 32.0L, Mean Corpuscular Volume 91, Mean Corpuscular Hemoglobin 28.5, Mean Corpuscular Hemoglobin Concent 31.4L, Red Cell Distribution Width 16.7H, Platelet Count 654H, Mean Platelet Volume 4.7L, Neutrophils (%) (Auto) 70.3, Lymphocytes (%) (Auto) 16.6L, Monocytes (%) (Auto) 10.2H, Eosinophils (%) (Auto ) 1.8, Basophils (%) (Auto) 1.1, Sodium Level 137, Potassium Level 4.2, Chloride Level 95L, Carbon Dioxide Level 31H, Anion Gap 11, Blood Urea Nitrogen 10, Creatinine 0.8, Estimat Glomerular Filtration Rate > 60, Glucose Level 86, Calcium Level 9.0 04/30/16 10:45: Coccidioides Antibody (Comp Fix) [Pending], Cryptococcus Antigen [Pending], Legionella pneumophila Group 1 Ab [Pending], Legionella pneumophilia IgM Group 1 [Pending], Mycoplasma pneumoniae IgG Antibody [Pending], Mycoplasma pneumoniae IgM Ab Titer [Pending], Aspergillus flavus Antibody [Pending], Aspergillus fumigatus Antibody [Pending], Aspergillus niger Antibody [Pending] Height (Feet): 5 Height (Inches): 4.00 Weight (Pounds): 135 Cardiovascular: normal rate Respiratory/Chest: rhonchi - bilaterally Edema: no edema noted RAQUEL Freeman Apr 30, 2016 16:18
[2016-04-30 19:58] VITALS: BP 96/78
[2016-05-01] VITALS: BP 99/75
[2016-05-01] MEDS: Morphine Sulfate 4mg/ml Inj IVP PRN ×6 (00:18→21:28)
[2016-05-01 04:00] VITALS: BP 110/76
[2016-05-01] MEDS: Piperacillin/Tazobactam 3.375 GM in D5W 110 ML IVPB SCH ×3 (05:20→21:28)
[2016-05-01] MEDS: Advair 250/50 Inhaler - 14 dose INH SCH ×2 (07:43→20:01)
[2016-05-01] MEDS: DuoNeb 0.5-3(2.5)mg/3ml neb HHN SCH ×3 (07:43→23:28)
[2016-05-01 08:00] VITALS: BP 94/64
[2016-05-01] MEDS: Docusate 100mg cap ORAL SCH ×2 (08:19→17:18)
[2016-05-01] MEDS: Citalopram 20mg Tab ORAL SCH (08:19)
[2016-05-01] MEDS: Heparin 5000 units/ml inj SUBQ SCH ×2 (08:22→20:15)
--- NOTE | 2016-05-01 11:51 | General Progress Note ---
Assessment/Plan Problem List: (1) Bronchospasm ICD Codes: J98.01 - Acute bronchospasm SNOMED: 8364296 (2) Pneumonia ICD Codes: J18.9 - Pneumonia, unspecified organism SNOMED: 156461279 Qualifiers: Qualified Codes: J18.9 - Pneumonia, unspecified organism (3) Arthritis of right shoulder region ICD Codes: M19.90 - Unspecified osteoarthritis, unspecified site SNOMED: 478463061, 832386406 Assessment/Plan Abxs Bronchodilators increase Morphin Discussed with RN Subjective Allergies: Coded Allergies: TETRACYCLINE (Verified Allergy, Severe, Itching, 04/28/16) SWELLING/ITCHING Subjective C/O more pain Objective Last 24 Hour Vital Signs Date Time Temp Pulse Resp B/P Pulse Ox O2 Delivery O2 Flow Rate FiO2 05/01/16 10:20 108 22 Nasal Cannula 2.0 28 05/01/16 10:05 101 24 9 Nasal Cannula 2.0 28 05/01/16 08:49 97.7 05/01/16 08:00 98.1 87 21 94/64 92 Room Air 05/01/16 07:48 98 18 97 Nasal Cannula 2.0 28 05/01/16 07:48 Nasal Cannula 2.0 28 05/01/16 07:40 93 18 96 Nasal Cannula 2.0 28 05/01/16 07:39 96 Nasal Cannula 2.0 28 05/01/16 04:58 82 21 98 Facial 28 05/01/16 04:00 97.7 82 20 110/76 99 Bi-pap 05/01/16 02:59 86 19 98 Facial 28 05/01/16 02:01 90 17 98 Facial 28 05/01/16 00:00 97.4 95 24 99/75 96 Nasal Cannula 3.0 04/30/16 23:05 Nasal Cannula 3.0 28 04/30/16 23:02 Nasal Cannula 3.0 28 04/30/16 20:39 93 18 97 Nasal Cannula 3.0 28 04/30/16 20:39 28 04/30/16 20:38 102 18 96 Nasal Cannula 3.0 28 04/30/16 20:37 96 Nasal Cannula 2.0 28 04/30/16 20:37 Nasal Cannula 2.0 28 04/30/16 19:58 97.8 98 20 96/78 96 Nasal Cannula 3.0 04/30/16 16:10 97 19 100 Nasal Cannula 3.0 28 04/30/16 15:58 28 04/30/16 15:58 95 18 95 Nasal Cannula 3.0 28 04/30/16 15:54 98.2 97 20 98/69 91 Nasal Cannula 3.0 04/30/16 12:00 96.8 104 20 98/60 90 Room Air Intake and Output 04/30/16 05/01/16 19:00 07:00 Intake Total 954 ml 426.5 ml Output Total 1200 ml Balance 954 ml -773.5 ml Intake Oral 870 ml 318 ml IV Total 84 ml 108.5 ml Output Urine Total 1200 ml # Voids 6 1 Laboratory Tests 04/30/16 19:30: Histoplasma Antigen [Pending], Urine Legionella Antigen [Pending] Height (Feet): 5 Height (Inches): 4.00 Weight (Pounds): 135 Cardiovascular: normal rate Respiratory/Chest: lungs clear RAQUEL VILLALBA May 01, 2016 11:51
[2016-05-01 12:00] VITALS: BP 104/57
[2016-05-01] MEDS: Morphine Sulfate 10mg/ml Inj IVP PRN (14:25)
--- NOTE | 2016-05-01 15:22 | Infectious Diseases Prog Note ---
Assessment/Plan Assessment/Plan A: 1. Pneumonia in the left lung. 2. The patient also has history of chronic obstructive pulmonary disease and emphysema. 3. Recent right shoulder surgery. 4. Bipolar disorder. P: continue Zosyn case was D/W cigar wrapper tender automatic in case of discharge PO antibiotic for CAP will f/u cultures Subjective ROS Limited/Unobtainable: No Constitutional: Reports: no symptoms Respiratory: Reports: dry cough Gastrointestinal/Abdominal: Reports: no symptoms Genitourinary: Reports: no symptoms Allergies: Coded Allergies: TETRACYCLINE (Verified Allergy, Severe, Itching, 04/28/16) SWELLING/ITCHING Objective Vital Signs Last 24 Hour Vital Signs Date Time Temp Pulse Resp B/P Pulse Ox O2 Delivery O2 Flow Rate FiO2 05/01/16 14:55 98.1 05/01/16 12:00 98.1 99 18 104/57 98 Room Air 05/01/16 10:20 108 22 Nasal Cannula 2.0 28 05/01/16 10:05 101 24 9 Nasal Cannula 2.0 28 05/01/16 08:49 97.7 05/01/16 08:00 98.1 87 21 94/64 92 Room Air 05/01/16 07:48 98 18 97 Nasal Cannula 2.0 28 05/01/16 07:48 Nasal Cannula 2.0 28 05/01/16 07:40 93 18 96 Nasal Cannula 2.0 28 05/01/16 07:39 96 Nasal Cannula 2.0 28 05/01/16 04:58 82 21 98 Facial 28 05/01/16 04:00 97.7 82 20 110/76 99 Bi-pap 05/01/16 02:59 86 19 98 Facial 28 05/01/16 02:01 90 17 98 Facial 28 05/01/16 00:00 97.4 95 24 99/75 96 Nasal Cannula 3.0 04/30/16 23:05 Nasal Cannula 3.0 28 04/30/16 23:02 Nasal Cannula 3.0 28 04/30/16 20:39 93 18 97 Nasal Cannula 3.0 28 04/30/16 20:39 28 04/30/16 20:38 102 18 96 Nasal Cannula 3.0 28 04/30/16 20:37 96 Nasal Cannula 2.0 28 04/30/16 20:37 Nasal Cannula 2.0 28 04/30/16 19:58 97.8 98 20 96/78 96 Nasal Cannula 3.0 04/30/16 16:10 97 19 100 Nasal Cannula 3.0 28 04/30/16 15:58 28 04/30/16 15:58 95 18 95 Nasal Cannula 3.0 28 04/30/16 15:54 98.2 97 20 98/69 91 Nasal Cannula 3.0 Height (Feet): 5 Height (Inches): 4.00 Weight (Pounds): 135 General Appearance: no acute distress HEENT: mucous membranes moist Respiratory/Chest: decreased breath sounds Cardiovascular: normal rate Abdomen: soft, non tender Extremities: no edema, other - R shoulder sling Neurologic/Psychiatric: alert, oriented x 3, responsive Microbiology Date/Time Source Procedure Growth Status 04/29/16 18:40 Sputum Induced Gram Stain - Final Resulted 04/29/16 18:40 Sputum Induced Sputum Culture Pending Resulted Laboratory Tests Test 04/30/16 19:30 Histoplasma Antigen Pending Urine Legionella Antigen Pending Current Medications Medications (Trade) Dose Ordered Sig/Josh Route PRN Reason Start Time Stop Time Status Last Admin Dose Admin Albuterol/ Ipratropium (DuoNeb 0.5-3(2.5)mg/3ml) 3 ml Q8HRT HHN 04/28/16 02:00 05/03/16 01:59 05/01/16 07:43 Citalopram Hydrobromide (celeXA) 40 mg DAILY ORAL 04/28/16 09:00 05/28/16 08:59 05/01/16 08:19 Docusate Sodium (Colace) 100 mg TWICE A DAY ORAL 04/28/16 09:00 05/28/16 08:59 05/01/16 08:19 Gabapentin (Neurontin) 300 mg THREE TIMES A DAY ORAL 04/28/16 02:00 05/28/16 01:59 05/01/16 13:41 Heparin Sodium (Porcine) (Heparin 5000 units/ml) 5,000 units EVERY 12 HOURS SUBQ 04/28/16 02:00 05/28/16 01:59 05/01/16 08:22 Magnesium Hydroxide (Mom) 30 ml HSPRN PRN ORAL Constipation 04/27/16 23:45 05/27/16 23:44 Morphine Sulfate (Morphine Sulfate) 4 mg Q3H PRN IVP Moderate Pain (Pain Scale 4-6) 05/01/16 14:45 05/08/16 14:44 Morphine Sulfate (Morphine Sulfate) 6 mg Q3H PRN IVP Severe Pain (Pain Scale 7-10) 05/01/16 14:45 05/08/16 14:44 05/01/16 14:25 Non-Formulary Medication (Non-Formulary Med) 1 ea DAILY ORAL 04/29/16 09:00 05/29/16 08:59 UNV Piperacillin Sod/ Tazobactam Sod/ Dextrose (Zosyn/D5W 100ml) 110 ml @ 27.5 mls/hr EVERY 8 HOURS IVPB 04/29/16 22:00 05/04/16 21:59 05/01/16 13:41 Ranitidine HCl (Zantac) 150 mg TWICE A DAY ORAL 04/28/16 09:00 05/28/16 08:59 05/01/16 08:20 Salmeterol Xinafoate/ Fluticasone 1 puffs 1 puffs Q12HR INH 04/29/16 21:00 05/29/16 20:59 05/01/16 07:43 Tiotropium [place] (Spiriva Inhaler) 1 puff DAILY INH 04/28/16 09:00 05/28/16 08:59 05/01/16 07:43 LEWIS VILLALBA May 01, 2016 15:22
--- NOTE | 2016-05-01 15:30 | Pulmonology Progress Note ---
Assessment/Plan Problems: (1) COPD (chronic obstructive pulmonary disease) (2) Pneumonia Assessment/Plan ASSESSMENT: The patient is a 65-year-old female with severe chronic obstructive pulmonary disease (FEV1 1.31) and chronic hypercapnic respiratory failure presenting from a custodial with acute on chronic shortness of breath concerning for a superimposed healthcare-associated tracheobronchitis or pneumonia. 04/29/16 CT CHEST: EMPHYSEMATOUS CHANGES, B PATCHY AND NODULAR INFILTRATES WITH MORE DENSE AREAS OF CONSOLIDATION B LL PROBLEM LIST: 1. Acute on chronic respiratory illness likely superimposed pneumonia. 2. Severe chronic obstructive pulmonary disease with chronic hypercapnic respiratory failure. 3. Nocturnal ventilator dependence. 4. B nodular and coalescing infiltrates concerning for an atypical infectious process with likely superimposed bacterial PNA 5. Recent right shoulder reverse total arthroplasty on 04/11/2016 for osteoarthritis. 6. Iron-deficiency anemia. 7. History of bibasilar pulmonary infiltrates versus atelectasis. 8. Tobacco use disorder - in remission 9. Depression. TREATMENT PLAN: 1. Optimize pulmonary hygiene and mobilize as tolerated. 2. Continue round the clock and p.r.n. bronchodilators. 3. Continue Advair and Spiriva. 4. Continue Zosyn per ID 5. Follow up sputum culture and respiratory panel. Atypical serologies pending 6. Discussed with patient's import/export analyst Dr Corral, will repeat CT at [facility] in a few weeks and will likely need bronchoscopy at that point once acute PNA has resolved 7. BiPAP 10/5 at bedtime and p.r.n. 8. Minimize sedation. 9. DVT prophylaxis. Heparin subcutaneous. 10. Monitor volumes. 11. Aspiration precautions. Subjective Allergies: Coded Allergies: TETRACYCLINE (Verified Allergy, Severe, Itching, 04/28/16) SWELLING/ITCHING Subjective AFVSS, O2 needs stable, using BiPAP at night No F/C/CP/SOB/N/V/D/C Objective Last 24 Hour Vital Signs Date Time Temp Pulse Resp B/P Pulse Ox O2 Delivery O2 Flow Rate FiO2 05/01/16 15:20 96 20 Nasal Cannula 2.0 28 05/01/16 14:55 98.1 05/01/16 12:00 98.1 99 18 104/57 98 Room Air 05/01/16 10:20 108 22 Nasal Cannula 2.0 28 05/01/16 10:05 101 24 Nasal Cannula 2.0 28 05/01/16 08:49 97.7 05/01/16 08:00 98.1 87 21 94/64 92 Room Air 05/01/16 07:48 98 18 97 Nasal Cannula 2.0 28 05/01/16 07:48 Nasal Cannula 2.0 28 05/01/16 07:40 93 18 96 Nasal Cannula 2.0 28 05/01/16 07:39 96 Nasal Cannula 2.0 28 05/01/16 04:58 82 21 98 Facial 28 05/01/16 04:00 97.7 82 20 110/76 99 Bi-pap 05/01/16 02:59 86 19 98 Facial 28 05/01/16 02:01 90 17 98 Facial 28 05/01/16 00:00 97.4 95 24 99/75 96 Nasal Cannula 3.0 04/30/16 23:05 Nasal Cannula 3.0 28 04/30/16 23:02 Nasal Cannula 3.0 28 04/30/16 20:39 93 18 97 Nasal Cannula 3.0 28 04/30/16 20:39 28 04/30/16 20:38 102 18 96 Nasal Cannula 3.0 28 04/30/16 20:37 96 Nasal Cannula 2.0 28 04/30/16 20:37 Nasal Cannula 2.0 28 04/30/16 19:58 97.8 98 20 96/78 96 Nasal Cannula 3.0 04/30/16 16:10 97 19 100 Nasal Cannula 3.0 28 04/30/16 15:58 28 04/30/16 15:58 95 18 95 Nasal Cannula 3.0 28 04/30/16 15:54 98.2 97 20 98/69 91 Nasal Cannula 3.0 Intake and Output 04/30/16 05/01/16 19:00 07:00 Intake Total 954 ml 426.5 ml Output Total 1200 ml Balance 954 ml -773.5 ml Intake Oral 870 ml 318 ml IV Total 84 ml 108.5 ml Output Urine Total 1200 ml # Voids 6 1 General Appearance: WD/WN, no acute distress HEENT: normocephalic, atraumatic, mucous membranes moist Respiratory/Chest: chest wall non-tender, lungs clear - but distatnt, no respiratory distress, no accessory muscle use Cardiovascular: normal peripheral pulses, normal rate, regular rhythm Abdomen: normal bowel sounds, soft, non tender, no organomegaly, non distended Extremities: no cyanosis, no clubbing, no edema Microbiology Date/Time Source Procedure Growth Status 04/29/16 18:40 Sputum Induced Gram Stain - Final Resulted 04/29/16 18:40 Sputum Induced Sputum Culture Pending Resulted Laboratory Tests 04/30/16 19:30: Histoplasma Antigen [Pending], Urine Legionella Antigen [Pending] Current Medications Medications (Trade) Dose Ordered Sig/Josh Route PRN Reason Start Time Stop Time Status Last Admin Dose Admin Albuterol/ Ipratropium (DuoNeb 0.5-3(2.5)mg/3ml) 3 ml Q8HRT HHN 04/28/16 02:00 05/03/16 01:59 05/01/16 15:22 Citalopram Hydrobromide (celeXA) 40 mg DAILY ORAL 04/28/16 09:00 05/28/16 08:59 05/01/16 08:19 Docusate Sodium (Colace) 100 mg TWICE A DAY ORAL 04/28/16 09:00 05/28/16 08:59 05/01/16 08:19 Gabapentin (Neurontin) 300 mg THREE TIMES A DAY ORAL 04/28/16 02:00 05/28/16 01:59 05/01/16 13:41 Heparin Sodium (Porcine) (Heparin 5000 units/ml) 5,000 units EVERY 12 HOURS SUBQ 04/28/16 02:00 05/28/16 01:59 05/01/16 08:22 Magnesium Hydroxide (Mom) 30 ml HSPRN PRN ORAL Constipation 04/27/16 23:45 05/27/16 23:44 Morphine Sulfate (Morphine Sulfate) 4 mg Q3H PRN IVP Moderate Pain (Pain Scale 4-6) 05/01/16 14:45 05/08/16 14:44 Morphine Sulfate (Morphine Sulfate) 6 mg Q3H PRN IVP Severe Pain (Pain Scale 7-10) 05/01/16 14:45 05/08/16 14:44 05/01/16 14:25 Non-Formulary Medication (Non-Formulary Med) 1 ea DAILY ORAL 04/29/16 09:00 05/29/16 08:59 UNV Piperacillin Sod/ Tazobactam Sod/ Dextrose (Zosyn/D5W 100ml) 110 ml @ 27.5 mls/hr EVERY 8 HOURS IVPB 04/29/16 22:00 05/04/16 21:59 05/01/16 13:41 Ranitidine HCl (Zantac) 150 mg TWICE A DAY ORAL 04/28/16 09:00 05/28/16 08:59 05/01/16 08:20 Salmeterol Xinafoate/ Fluticasone 1 puffs 1 puffs Q12HR INH 04/29/16 21:00 05/29/16 20:59 05/01/16 07:43 Tiotropium [place] (Spiriva Inhaler) 1 puff DAILY INH 04/28/16 09:00 05/28/16 08:59 05/01/16 07:43 DENIS VEGA M.D. May 01, 2016 15:30
[2016-05-01 16:00] VITALS: BP 90/62
[2016-05-01 19:33] VITALS: BP 108/66
[2016-05-02] VITALS: BP 101/68
[2016-05-02] MEDS: Morphine Sulfate 4mg/ml Inj IVP PRN ×5 (00:40→21:13)
[2016-05-02 04:00] VITALS: BP 94/52
[2016-05-02] MEDS: Piperacillin/Tazobactam 3.375 GM in D5W 110 ML IVPB SCH ×3 (06:07→21:13)
[2016-05-02] MEDS: DuoNeb 0.5-3(2.5)mg/3ml neb HHN SCH ×3 (07:11→23:19)
[2016-05-02] MEDS: Morphine Sulfate 10mg/ml Inj IVP PRN (07:47)
[2016-05-02 08:08] VITALS: BP 92/55
[2016-05-02] MEDS: Citalopram 20mg Tab ORAL SCH (08:10)
[2016-05-02] MEDS: Docusate 100mg cap ORAL SCH ×2 (08:10→17:44)
[2016-05-02] MEDS: Heparin 5000 units/ml inj SUBQ SCH ×2 (08:15→20:29)
[2016-05-02] MEDS: Advair 250/50 Inhaler - 14 dose INH SCH ×2 (08:52→19:29)
--- NOTE | 2016-05-02 11:46 | General Progress Note ---
Assessment/Plan Problem List: (1) Bronchospasm ICD Codes: J98.01 - Acute bronchospasm SNOMED: 4527725 (2) Pneumonia ICD Codes: J18.9 - Pneumonia, unspecified organism SNOMED: 075693162 Qualifiers: Qualified Codes: J18.9 - Pneumonia, unspecified organism (3) Arthritis of right shoulder region ICD Codes: M19.90 - Unspecified osteoarthritis, unspecified site SNOMED: 075914710, 540181936 Assessment/Plan Abxs Bronchodilators pain meds Discussed with RN KOMAL in AM Subjective Allergies: Coded Allergies: TETRACYCLINE (Verified Allergy, Severe, Itching, 04/28/16) SWELLING/ITCHING Subjective better Objective Last 24 Hour Vital Signs Date Time Temp Pulse Resp B/P Pulse Ox O2 Delivery O2 Flow Rate FiO2 05/02/16 08:17 97.8 05/02/16 08:08 97.8 76 20 92/55 100 Nasal Cannula 2.0 05/02/16 07:14 90 16 97 Nasal Cannula 2.0 28 05/02/16 07:13 28 05/02/16 07:13 90 16 96 Nasal Cannula 2.0 28 05/02/16 07:12 Nasal Cannula 2.0 28 05/02/16 07:11 99 Nasal Cannula 2.0 28 05/02/16 04:00 98.4 88 18 94/52 96 Nasal Cannula 2.0 05/02/16 00:00 98.0 86 18 101/68 95 Nasal Cannula 2.0 05/01/16 23:43 87 16 99 Nasal Cannula 2.0 28 05/01/16 23:31 28 05/01/16 23:30 84 16 96 Nasal Cannula 2.0 28 05/01/16 22:00 87 16 99 05/01/16 19:33 98.2 100 18 108/66 90 Nasal Cannula 2.0 05/01/16 19:00 99 Nasal Cannula 2.0 28 05/01/16 19:00 Nasal Cannula 2.0 28 05/01/16 16:00 98.4 93 18 90/62 90 Nasal Cannula 2.0 05/01/16 15:30 98 22 Nasal Cannula 2.0 28 05/01/16 15:20 96 20 Nasal Cannula 2.0 28 05/01/16 12:00 98.1 99 18 104/57 98 Room Air Intake and Output 05/01/16 05/02/16 19:00 07:00 Intake Total 970.0 ml 562.5 ml Output Total 850 ml Balance 970.0 ml -287.5 ml Intake Oral 860 ml 480 ml IV Total 110.0 ml 82.5 ml Output Urine Total 850 ml # Voids 5 # Bowel Movements 1 Height (Feet): 5 Height (Inches): 4.00 Weight (Pounds): 135 Cardiovascular: normal rate Respiratory/Chest: rhonchi - bilaterally - less Edema: no edema noted Generalized RAQUEL VILLALBA May 02, 2016 11:45
[2016-05-02 12:00] VITALS: BP 110/58
[2016-05-02 13:13] LABS: CRYPTOCOCCAL ANTIGEN SERUM Negative (Negative)
--- NOTE | 2016-05-02 14:59 | Pulmonology Progress Note ---
Assessment/Plan Problems: (1) COPD (chronic obstructive pulmonary disease) (2) Pneumonia Assessment/Plan ASSESSMENT: The patient is a 65-year-old female with severe chronic obstructive pulmonary disease (FEV1 1.31) and chronic hypercapnic respiratory failure presenting from a senior care with acute on chronic shortness of breath concerning for a superimposed healthcare-associated tracheobronchitis or pneumonia. 04/29/16 CT CHEST: EMPHYSEMATOUS CHANGES, B PATCHY AND NODULAR INFILTRATES WITH MORE DENSE AREAS OF CONSOLIDATION B LL PROBLEM LIST: 1. Acute on chronic respiratory illness likely superimposed pneumonia. 2. Severe chronic obstructive pulmonary disease with chronic hypercapnic respiratory failure. 3. Nocturnal ventilator dependence. 4. B nodular and coalescing infiltrates concerning for an atypical infectious process with likely superimposed bacterial PNA 5. Recent right shoulder reverse total arthroplasty on 04/11/2016 for osteoarthritis. 6. Iron-deficiency anemia. 7. History of bibasilar pulmonary infiltrates versus atelectasis. 8. Tobacco use disorder - in remission 9. Depression. 10. LUE superficial phlebitis TREATMENT PLAN: 1. Optimize pulmonary hygiene and mobilize as tolerated. 2. Continue round the clock and p.r.n. bronchodilators. 3. Continue Advair and Spiriva. 4. Continue Zosyn per ID, will be D/C'd on PO Abx 5. Follow up sputum culture and respiratory panel. Atypical serologies pending 6. Discussed with patient's customs collector Dr Corral, will repeat CT at [facility] in a few weeks and will likely need bronchoscopy at that point once acute PNA has resolved. Patient to be provided a copy of her CT on disc to take to her appointment 7. BiPAP 10/5 at bedtime and p.r.n. 8. Minimize sedation. 9. DVT prophylaxis. Heparin subcutaneous. 10. Monitor volumes. 11. Aspiration precautions. 12. F/U LUE US Subjective Allergies: Coded Allergies: TETRACYCLINE (Verified Allergy, Severe, Itching, 04/28/16) SWELLING/ITCHING Subjective AFVSS, O2 needs stable, using BiPAP at night No F/C/CP/SOB/N/V/D/C Objective Last 24 Hour Vital Signs Date Time Temp Pulse Resp B/P Pulse Ox O2 Delivery O2 Flow Rate FiO2 05/02/16 14:41 95 18 97 Nasal Cannula 2.0 28 05/02/16 14:39 28 05/02/16 14:39 95 18 95 Nasal Cannula 2.0 28 05/02/16 12:00 98.2 79 20 110/58 99 Nasal Cannula 2.0 05/02/16 11:42 98.2 05/02/16 08:17 97.8 05/02/16 08:08 97.8 76 20 92/55 100 Nasal Cannula 2.0 05/02/16 07:14 90 16 97 Nasal Cannula 2.0 28 05/02/16 07:13 28 05/02/16 07:13 90 16 96 Nasal Cannula 2.0 28 05/02/16 07:12 Nasal Cannula 2.0 28 05/02/16 07:11 99 Nasal Cannula 2.0 28 05/02/16 04:00 98.4 88 18 94/52 96 Nasal Cannula 2.0 05/02/16 00:00 98.0 86 18 101/68 95 Nasal Cannula 2.0 05/01/16 23:43 87 16 99 Nasal Cannula 2.0 28 05/01/16 23:31 28 05/01/16 23:30 84 16 96 Nasal Cannula 2.0 28 05/01/16 22:00 87 16 99 05/01/16 19:33 98.2 100 18 108/66 90 Nasal Cannula 2.0 05/01/16 19:00 99 Nasal Cannula 2.0 28 05/01/16 19:00 Nasal Cannula 2.0 28 05/01/16 16:00 98.4 93 18 90/62 90 Nasal Cannula 2.0 05/01/16 15:30 98 22 Nasal Cannula 2.0 28 05/01/16 15:20 96 20 Nasal Cannula 2.0 28 Intake and Output 05/01/16 05/02/16 19:00 07:00 Intake Total 970.0 ml 562.5 ml Output Total 850 ml Balance 970.0 ml -287.5 ml Intake Oral 860 ml 480 ml IV Total 110.0 ml 82.5 ml Output Urine Total 850 ml # Voids 5 # Bowel Movements 1 General Appearance: WD/WN, no acute distress HEENT: normocephalic, mucous membranes moist Respiratory/Chest: chest wall non-tender, lungs clear - but distatn, normal breath sounds, no respiratory distress Cardiovascular: normal peripheral pulses, normal rate, regular rhythm Abdomen: normal bowel sounds, soft, non tender, no organomegaly, non distended Extremities: no cyanosis, no clubbing, no edema, other - LUE forearm 3 cm TTP and mild erythema Microbiology Date/Time Source Procedure Growth Status 04/29/16 18:40 Sputum Induced Gram Stain - Final Resulted 04/29/16 18:40 Sputum Culture - Preliminary Gram Negative Bacillus 1 Resulted Current Medications Medications (Trade) Dose Ordered Sig/Josh Route PRN Reason Start Time Stop Time Status Last Admin Dose Admin Albuterol/ Ipratropium (DuoNeb 0.5-3(2.5)mg/3ml) 3 ml Q8HRT HHN 04/28/16 02:00 05/03/16 01:59 05/02/16 14:37 Citalopram Hydrobromide (celeXA) 40 mg DAILY ORAL 04/28/16 09:00 05/28/16 08:59 05/02/16 08:10 Docusate Sodium (Colace) 100 mg TWICE A DAY ORAL 04/28/16 09:00 05/28/16 08:59 05/02/16 08:10 Gabapentin (Neurontin) 300 mg THREE TIMES A DAY ORAL 04/28/16 02:00 05/28/16 01:59 05/02/16 13:51 Heparin Sodium (Porcine) (Heparin 5000 units/ml) 5,000 units EVERY 12 HOURS SUBQ 04/28/16 02:00 05/28/16 01:59 05/02/16 08:15 Magnesium Hydroxide (Mom) 30 ml HSPRN PRN ORAL Constipation 04/27/16 23:45 05/27/16 23:44 Morphine Sulfate (Morphine Sulfate) 4 mg Q3H PRN IVP Moderate Pain (Pain Scale 4-6) 05/01/16 14:45 05/08/16 14:44 05/02/16 14:53 Morphine Sulfate (Morphine Sulfate) 6 mg Q3H PRN IVP Severe Pain (Pain Scale 7-10) 05/01/16 14:45 05/08/16 14:44 05/02/16 07:47 Piperacillin Sod/ Tazobactam Sod/ Dextrose (Zosyn/D5W 100ml) 110 ml @ 27.5 mls/hr EVERY 8 HOURS IVPB 04/29/16 22:00 05/04/16 21:59 05/02/16 13:51 Ranitidine HCl (Zantac) 150 mg TWICE A DAY ORAL 04/28/16 09:00 05/28/16 08:59 05/02/16 08:10 Salmeterol Xinafoate/ Fluticasone 1 puffs 1 puffs Q12HR INH 04/29/16 21:00 05/29/16 20:59 05/02/16 08:52 Tiotropium [place] (Spiriva Inhaler) 1 puff DAILY INH 04/28/16 09:00 05/28/16 08:59 05/02/16 08:52 DENIS VEGA M.D. May 02, 2016 14:59
--- NOTE | 2016-05-02 15:20 | Infectious Diseases Prog Note ---
Assessment/Plan Assessment/Plan A: 1. Pneumonia in the left lung. 2. The patient also has history of chronic obstructive pulmonary disease and emphysema. 3. Recent right shoulder surgery. 4. Bipolar disorder. P: continue Zosyn case was D/W dietary clerk in case of discharge PO Levaquin will f/u cultures Subjective ROS Limited/Unobtainable: No Constitutional: Reports: no symptoms Respiratory: Reports: dry cough Gastrointestinal/Abdominal: Reports: no symptoms Genitourinary: Reports: no symptoms Allergies: Coded Allergies: TETRACYCLINE (Verified Allergy, Severe, Itching, 04/28/16) SWELLING/ITCHING Objective Vital Signs Last 24 Hour Vital Signs Date Time Temp Pulse Resp B/P Pulse Ox O2 Delivery O2 Flow Rate FiO2 05/02/16 14:41 95 18 97 Nasal Cannula 2.0 28 05/02/16 14:39 28 05/02/16 14:39 95 18 95 Nasal Cannula 2.0 28 05/02/16 12:00 98.2 79 20 110/58 99 Nasal Cannula 2.0 05/02/16 11:42 98.2 05/02/16 08:17 97.8 05/02/16 08:08 97.8 76 20 92/55 100 Nasal Cannula 2.0 05/02/16 07:14 90 16 97 Nasal Cannula 2.0 28 05/02/16 07:13 28 05/02/16 07:13 90 16 96 Nasal Cannula 2.0 28 05/02/16 07:12 Nasal Cannula 2.0 28 05/02/16 07:11 99 Nasal Cannula 2.0 28 05/02/16 04:00 98.4 88 18 94/52 96 Nasal Cannula 2.0 05/02/16 00:00 98.0 86 18 101/68 95 Nasal Cannula 2.0 05/01/16 23:43 87 16 99 Nasal Cannula 2.0 28 05/01/16 23:31 28 05/01/16 23:30 84 16 96 Nasal Cannula 2.0 28 05/01/16 22:00 87 16 99 05/01/16 19:33 98.2 100 18 108/66 90 Nasal Cannula 2.0 05/01/16 19:00 99 Nasal Cannula 2.0 28 05/01/16 19:00 Nasal Cannula 2.0 28 05/01/16 16:00 98.4 93 18 90/62 90 Nasal Cannula 2.0 05/01/16 15:30 98 22 Nasal Cannula 2.0 28 05/01/16 15:20 96 20 Nasal Cannula 2.0 28 Height (Feet): 5 Height (Inches): 4.00 Weight (Pounds): 135 General Appearance: no acute distress HEENT: mucous membranes moist Respiratory/Chest: lungs clear Cardiovascular: normal rate Abdomen: soft, non tender Extremities: no edema, other - R arm sling Neurologic/Psychiatric: alert, oriented x 3, responsive Microbiology Date/Time Source Procedure Growth Status 04/29/16 18:40 Sputum Induced Gram Stain - Final Resulted 04/29/16 18:40 Sputum Culture - Preliminary Gram Negative Bacillus 1 Resulted Current Medications Medications (Trade) Dose Ordered Sig/Josh Route PRN Reason Start Time Stop Time Status Last Admin Dose Admin Albuterol/ Ipratropium (DuoNeb 0.5-3(2.5)mg/3ml) 3 ml Q8HRT HHN 04/28/16 02:00 05/03/16 01:59 05/02/16 14:37 Citalopram Hydrobromide (celeXA) 40 mg DAILY ORAL 04/28/16 09:00 05/28/16 08:59 05/02/16 08:10 Docusate Sodium (Colace) 100 mg TWICE A DAY ORAL 04/28/16 09:00 05/28/16 08:59 05/02/16 08:10 Gabapentin (Neurontin) 300 mg THREE TIMES A DAY ORAL 04/28/16 02:00 05/28/16 01:59 05/02/16 13:51 Heparin Sodium (Porcine) (Heparin 5000 units/ml) 5,000 units EVERY 12 HOURS SUBQ 04/28/16 02:00 05/28/16 01:59 05/02/16 08:15 Magnesium Hydroxide (Mom) 30 ml HSPRN PRN ORAL Constipation 04/27/16 23:45 05/27/16 23:44 Morphine Sulfate (Morphine Sulfate) 4 mg Q3H PRN IVP Moderate Pain (Pain Scale 4-6) 05/01/16 14:45 05/08/16 14:44 05/02/16 14:53 Morphine Sulfate (Morphine Sulfate) 6 mg Q3H PRN IVP Severe Pain (Pain Scale 7-10) 05/01/16 14:45 05/08/16 14:44 05/02/16 07:47 Piperacillin Sod/ Tazobactam Sod/ Dextrose (Zosyn/D5W 100ml) 110 ml @ 27.5 mls/hr EVERY 8 HOURS IVPB 04/29/16 22:00 05/04/16 21:59 05/02/16 13:51 Ranitidine HCl (Zantac) 150 mg TWICE A DAY ORAL 04/28/16 09:00 05/28/16 08:59 05/02/16 08:10 Salmeterol Xinafoate/ Fluticasone 1 puffs 1 puffs Q12HR INH 04/29/16 21:00 05/29/16 20:59 05/02/16 08:52 Tiotropium [place] (Spiriva Inhaler) 1 puff DAILY INH 04/28/16 09:00 05/28/16 08:59 05/02/16 08:52 LEWIS VILLALBA May 02, 2016 15:19
[2016-05-02 16:00] VITALS: BP 98/62
[2016-05-02 17:13] LABS: L.PNEUMOPHILIA SERO-1 <0.91 OD ratio (0.00-0.90)
[2016-05-02 20:13] LABS: MYCOPLASMA PNEUMONIAE AB IGG 895 U/mL (0-99); MYCOPLASMA PNEUMONIAE AB IGM <770 U/mL (0-769)
[2016-05-02 20:14] VITALS: BP 99/71
[2016-05-03] VITALS (7 sets, daily range): BP systolic 88–104; BP diastolic 49–61
[2016-05-03] MEDS: Morphine Sulfate 10mg/ml Inj IVP PRN ×2 (00:13→07:05)
[2016-05-03 00:14] LABS: L.PNEUMOPHILIA IGM SERO-1 < 1:16 (< 1:16)
[2016-05-03] MEDS: Piperacillin/Tazobactam 3.375 GM in D5W 110 ML IVPB SCH ×3 (07:05→21:25)
[2016-05-03] MEDS: Docusate 100mg cap ORAL SCH ×2 (08:52→17:20)
[2016-05-03] MEDS: Citalopram 20mg Tab ORAL SCH (08:52)
[2016-05-03] MEDS: Heparin 5000 units/ml inj SUBQ SCH ×2 (08:57→20:26)
[2016-05-03] MEDS: Advair 250/50 Inhaler - 14 dose INH SCH ×2 (09:24→21:58)
[2016-05-03] MEDS: Morphine Sulfate 4mg/ml Inj IVP PRN ×5 (10:58→23:57)
[2016-05-03] MEDS ORDERED: LEVAQUIN750 MG ORAL (14:49)
--- NOTE | 2016-05-03 14:55 | Consultation ---
Consult Note Assessment/Plan Dc dictated # [id number] RAQUEL VILLALBA May 03, 2016 14:55
--- NOTE | 2016-05-03 15:05 | Consultation ---
Consult Note Assessment/Plan Renal consult dictated # [id number] RAQUEL VILLALBA May 03, 2016 15:05
[2016-05-03] MEDS ORDERED: MORPHINE 44 MG/1 ML IV ×2 (16:11→16:12)
[2016-05-03] MEDS ORDERED: MORPHINE 22 MG/1 ML IV (16:13)
[2016-05-03 20:10] LABS: COCCIDIODES AB-CF/SERUM Negative (Neg:<1:2)
--- NOTE | 2016-05-04 03:07 | Discharge Summary ---
DATE OF ADMISSION: 04/29/2016 Date of Discharge : 05/06/2016 CHIEF COMPLAINT: Chest pain, cough, and sputum production. HISTORY OF PRESENT ILLNESS: This is a 65-year-old female, who was admitted with the above symptoms and diagnosis of pneumonia. HOSPITAL COURSE: The patient was started on IV antibiotics. The patient was seen by Dr. Collado in Pulmonary consultation and Dr. Lissa Malagon in ID consultation. The patient had a previous history of pneumonia recently and it was felt that the patient needed further workup to make sure that she does have an underlying malignancy. She does have a history of smoking. A CT of chest was done on 04/29/2016. Findings were compatible with chronic obstructive pulmonary disease mixed with prominent emphysematous changes, interstitial disease/fibrosis, and superimposed interstitial nodularity, nonspecific. The patient had multi-patchy parenchymal consolidation, superimposed acute pneumonias must be suspected, underlying neoplasms not excludable, and a small right pleural effusion. Based on those results, Dr. Collado's opinion was the patient's CT scan had to be repeated in the future time. This was also discussed with the patient's primary, family resource management specialist Dr. Corral at [facility]. The patient's sputum was sent for culture that came back Pseudomonas, which was sensitive to Levaquin. The patient was switched to Levaquin on 05/03/2016 and was discharged on 05/06. The patient was also getting pain medication for the left wrist and left shoulder pain as well as bronchodilators. DISCHARGE DIAGNOSES: 1. Pneumonia with Pseudomonas. 2. Chronic obstructive pulmonary disease exacerbation. 3. Nodularity of the lungs, rule out underlying malignancy. 4. Recent history of right shoulder surgery. Gabriel Malagon M.D. DR: PRABHAKAR JOB#: [id number] CC: MARIA ISABEL
[2016-05-04] MEDS: Morphine Sulfate 4mg/ml Inj IVP PRN ×6 (03:23→21:44)
[2016-05-04 04:45] VITALS: BP 99/61
[2016-05-04] MEDS: Morphine Sulfate 10mg/ml Inj IVP PRN (05:19)
[2016-05-04] MEDS: Piperacillin/Tazobactam 3.375 GM in D5W 110 ML IVPB SCH ×2 (05:32→13:50)
[2016-05-04 08:00] VITALS: BP 107/75
[2016-05-04] MEDS: Docusate 100mg cap ORAL SCH ×2 (09:02→17:30)
[2016-05-04] MEDS: Citalopram 20mg Tab ORAL SCH (09:03)
[2016-05-04] MEDS: Heparin 5000 units/ml inj SUBQ SCH ×2 (09:07→20:36)
[2016-05-04] MEDS: Advair 250/50 Inhaler - 14 dose INH SCH ×2 (09:45→19:39)
[2016-05-04 12:02] VITALS: BP 100/74
--- NOTE | 2016-05-04 13:31 | General Progress Note ---
Assessment/Plan Problem List: (1) Bronchospasm ICD Codes: J98.01 - Acute bronchospasm SNOMED: 8595796 (2) Pneumonia ICD Codes: J18.9 - Pneumonia, unspecified organism SNOMED: 069348225 Qualifiers: Qualified Codes: J18.9 - Pneumonia, unspecified organism (3) Arthritis of right shoulder region ICD Codes: M19.90 - Unspecified osteoarthritis, unspecified site SNOMED: 385477173, 876027599 Assessment/Plan Abxs Bronchodilators pain meds Discussed with RN KOMAL when bed available Subjective Allergies: Coded Allergies: TETRACYCLINE (Verified Allergy, Severe, Itching, 04/28/16) SWELLING/ITCHING Subjective C/O shoulder pain Objective Last 24 Hour Vital Signs Date Time Temp Pulse Resp B/P Pulse Ox O2 Delivery O2 Flow Rate FiO2 05/04/16 12:02 98.1 87 21 100/74 94 Room Air 05/04/16 08:00 97.9 83 20 107/75 94 Nasal Cannula 05/04/16 07:42 95 Nasal Cannula 2.0 05/04/16 07:41 Nasal Cannula 2.0 05/04/16 04:45 97.5 91 19 99/61 94 Nasal Cannula 2.0 94 05/03/16 23:56 97.7 94 20 92/58 94 Nasal Cannula 2.0 94 05/03/16 20:00 98.4 85 22 104/49 94 Room Air 05/03/16 19:00 Nasal Cannula 2.0 28 05/03/16 19:00 96 Nasal Cannula 2.0 28 05/03/16 16:20 96.9 86 20 95/54 94 Room Air 05/03/16 14:37 96.9 Intake and Output 05/03/16 05/04/16 19:00 07:00 Intake Total 1107.5 ml 465 ml Output Total 300 ml Balance 807.5 ml 465 ml Intake Oral 1080 ml 440 ml IV Total 27.5 ml 25 ml Output Urine Total 300 ml # Voids 3 3 Height (Feet): 5 Height (Inches): 4.00 Weight (Pounds): 135 Cardiovascular: normal rate Respiratory/Chest: lungs clear RAQUEL VILLALBA May 04, 2016 13:31
[2016-05-04] MEDS ORDERED: Tubing IV Secondary IV ONE ×2 (15:30→16:05)
[2016-05-04] MEDS ORDERED: NS 275ml ONE (15:30)
[2016-05-04 16:00] VITALS: BP 90/61
--- NOTE | 2016-05-04 17:04 | Diagnostic Imaging Report ---
APPROVED REPORT CPT Code: 77385 Present Symptoms Palpable Cord : Left Upper Extremity Edema: Left Shortness of breath LEFT UPPER EXTREMITY: Venous imaging reveals patency of the internal jugular, subclavian, axillary and brachial veins. The cephalic is patent. Doppler indicates normal spontaneous flow within these venous segments. The basilic vein is occluded in the forearm at location of palpable cord. EMILI Arroyo was informed at 1205 hours.
[2016-05-04 19:00] VITALS: BP 96/67
[2016-05-05] VITALS: BP 117/68
[2016-05-05 04:00] VITALS: BP 97/56
[2016-05-05 08:00] VITALS: BP 103/72
[2016-05-05] MEDS: Docusate 100mg cap ORAL SCH ×2 (08:19→18:48)
[2016-05-05] MEDS: Heparin 5000 units/ml inj SUBQ SCH ×2 (08:20→20:13)
[2016-05-05] MEDS: Citalopram 20mg Tab ORAL SCH (08:22)
[2016-05-05] MEDS: Advair 250/50 Inhaler - 14 dose INH SCH (09:25)
--- NOTE | 2016-05-05 11:54 | Infectious Diseases Prog Note ---
Assessment/Plan Assessment/Plan A: 1. Pneumonia in the left lung., pseudomonas 2. The patient also has history of chronic obstructive pulmonary disease and emphysema. 3. Recent right shoulder surgery. 4. Bipolar disorder. P: start PO Levaquin will f/u cultures Subjective ROS Limited/Unobtainable: No Respiratory: Reports: productive cough Cardiovascular: Reports: no symptoms Gastrointestinal/Abdominal: Reports: no symptoms Genitourinary: Reports: no symptoms Allergies: Coded Allergies: TETRACYCLINE (Verified Allergy, Severe, Itching, 04/28/16) SWELLING/ITCHING Objective Vital Signs Last 24 Hour Vital Signs Date Time Temp Pulse Resp B/P Pulse Ox O2 Delivery O2 Flow Rate FiO2 05/05/16 08:05 Nasal Cannula 2.0 05/05/16 08:05 93 Nasal Cannula 2.0 05/05/16 08:00 97.7 96 20 103/72 93 Nasal Cannula 05/05/16 04:00 98.2 78 20 97/56 97 Nasal Cannula 2.0 05/05/16 00:00 98.2 84 19 117/68 96 Room Air 05/04/16 19:41 93 Nasal Cannula 2.0 05/04/16 19:41 Nasal Cannula 2.0 05/04/16 19:00 97.6 88 20 96/67 94 05/04/16 16:00 98.1 91 20 90/61 94 Nasal Cannula 2.0 05/04/16 12:02 98.1 87 21 100/74 94 Room Air Height (Feet): 5 Height (Inches): 4.00 Weight (Pounds): 135 General Appearance: no acute distress HEENT: mucous membranes moist Respiratory/Chest: decreased breath sounds Cardiovascular: normal rate Abdomen: soft, non tender Extremities: no edema Neurologic/Psychiatric: alert, oriented x 3, responsive Musculoskeletal: atrophy Current Medications Medications (Trade) Dose Ordered Sig/Josh Route PRN Reason Start Time Stop Time Status Last Admin Dose Admin Acetaminophen/ Hydrocodone Bitart ([place] 10/325) 1 ea Q4H PRN ORAL For Pain 05/05/16 11:15 05/12/16 11:14 Citalopram Hydrobromide (celeXA) 40 mg DAILY ORAL 04/28/16 09:00 05/28/16 08:59 05/05/16 08:22 Docusate Sodium (Colace) 100 mg TWICE A DAY ORAL 04/28/16 09:00 05/28/16 08:59 05/05/16 08:19 Gabapentin (Neurontin) 300 mg THREE TIMES A DAY ORAL 04/28/16 02:00 05/28/16 01:59 05/05/16 08:19 Heparin Sodium (Porcine) (Heparin 5000 units/ml) 5,000 units EVERY 12 HOURS SUBQ 04/28/16 02:00 05/28/16 01:59 05/04/16 09:07 Magnesium Hydroxide (Mom) 30 ml HSPRN PRN ORAL Constipation 04/27/16 23:45 05/27/16 23:44 Morphine Sulfate (Morphine Sulfate) 4 mg Q3H PRN IVP Moderate Pain (Pain Scale 4-6) 05/01/16 14:45 05/08/16 14:44 05/04/16 21:44 Morphine Sulfate (Morphine Sulfate) 6 mg Q3H PRN IVP Severe Pain (Pain Scale 7-10) 05/01/16 14:45 05/08/16 14:44 05/04/16 05:19 Ranitidine HCl (Zantac) 150 mg TWICE A DAY ORAL 04/28/16 09:00 05/28/16 08:59 05/05/16 08:19 Salmeterol Xinafoate/ Fluticasone (Advair 250/50 Diskus) 1 puffs Q12HR INH 04/29/16 21:00 05/29/16 20:59 05/05/16 09:25 Tiotropium [place] (Spiriva Inhaler) 1 puff DAILY INH 04/28/16 09:00 05/28/16 08:59 05/05/16 09:25 LEWIS VILLALBA May 05, 2016 11:54
[2016-05-05 12:00] VITALS: BP 95/67
[2016-05-05] MEDS: Norco 10mg/325mg tab ORAL PRN ×2 (12:12→16:22)
--- NOTE | 2016-05-05 14:15 | General Progress Note ---
Assessment/Plan Problem List: (1) Bronchospasm ICD Codes: J98.01 - Acute bronchospasm SNOMED: 4813777 (2) Pneumonia ICD Codes: J18.9 - Pneumonia, unspecified organism SNOMED: 808437900 Qualifiers: Qualified Codes: J18.9 - Pneumonia, unspecified organism (3) Arthritis of right shoulder region ICD Codes: M19.90 - Unspecified osteoarthritis, unspecified site SNOMED: 253708626, 240040268 Assessment/Plan Abxs Bronchodilators po pain meds Discussed with RN DC when bed available Subjective Allergies: Coded Allergies: TETRACYCLINE (Verified Allergy, Severe, Itching, 04/28/16) SWELLING/ITCHING Subjective pain is better Objective Last 24 Hour Vital Signs Date Time Temp Pulse Resp B/P Pulse Ox O2 Delivery O2 Flow Rate FiO2 05/05/16 12:00 97.3 97 20 95/67 92 Nasal Cannula 05/05/16 08:05 Nasal Cannula 2.0 05/05/16 08:05 93 Nasal Cannula 2.0 05/05/16 08:00 97.7 96 20 103/72 93 Nasal Cannula 05/05/16 04:00 98.2 78 20 97/56 97 Nasal Cannula 2.0 05/05/16 00:00 98.2 84 19 117/68 96 Room Air 05/04/16 19:41 93 Nasal Cannula 2.0 05/04/16 19:41 Nasal Cannula 2.0 05/04/16 19:00 97.6 88 20 96/67 94 05/04/16 16:00 98.1 91 20 90/61 94 Nasal Cannula 2.0 Intake and Output 05/04/16 05/05/16 18:59 06:59 Intake Total 1470.0 ml 240 ml Balance 1470.0 ml 240 ml Intake Oral 1260 ml 240 ml IV Total 210.0 ml # Voids 10 1 # Bowel Movements 1 Height (Feet): 5 Height (Inches): 4.00 Weight (Pounds): 135 Cardiovascular: normal rate Respiratory/Chest: lungs clear Edema: no edema noted RAQUEL Freeman May 05, 2016 14:15
[2016-05-05 16:00] VITALS: BP 96/69
[2016-05-05 20:00] VITALS: BP 102/71
[2016-05-05] MEDS: Morphine Sulfate 4mg/ml Inj IVP PRN (20:12)
[2016-05-06] VITALS: BP 111/74
[2016-05-06] MEDS: Morphine Sulfate 10mg/ml Inj IVP PRN ×2 (00:13→03:13)
[2016-05-06 04:00] VITALS: BP 112/76
[2016-05-06] MEDS: Advair 250/50 Inhaler - 14 dose INH SCH ×2 (07:52→07:55)
[2016-05-06] MEDS: Citalopram 20mg Tab ORAL SCH (07:53)
[2016-05-06] MEDS: Docusate 100mg cap ORAL SCH (07:53)
[2016-05-06] MEDS: Morphine Sulfate 4mg/ml Inj IVP PRN ×2 (07:54→11:30)
[2016-05-06] MEDS: Heparin 5000 units/ml inj SUBQ SCH (07:55)
[2016-05-06 08:30] VITALS: BP 108/65
--- NOTE | 2016-05-06 11:19 | Infectious Diseases Prog Note ---
Assessment/Plan Assessment/Plan antibiotics : levoquin A 1. pseudomonas pneumonia 2. leucocytosis improving 3. COPD 4. bipolar disorder ' P 1. continue levoquin 2, will follow up cultures Subjective Constitutional: Denies: chills, fever Respiratory: Denies: dry cough, shortness of breath Gastrointestinal/Abdominal: Denies: diarrhea, nausea, vomiting Musculoskeletal: Denies: pain Allergies: Coded Allergies: TETRACYCLINE (Verified Allergy, Severe, Itching, 04/28/16) SWELLING/ITCHING Objective Vital Signs Last 24 Hour Vital Signs Date Time Temp Pulse Resp B/P Pulse Ox O2 Delivery O2 Flow Rate FiO2 05/06/16 08:30 97.0 107 20 108/65 94 Room Air 05/06/16 07:45 Room Air 05/06/16 07:43 93 Room Air 05/06/16 04:00 97.9 95 22 112/76 90 Room Air 05/06/16 00:00 97.7 84 22 111/74 95 Nasal Cannula 2.0 05/05/16 20:42 97.3 05/05/16 20:00 96.1 79 20 102/71 92 Nasal Cannula 2.0 05/05/16 19:35 98 Nasal Cannula 2.0 05/05/16 19:35 Nasal Cannula 2.0 05/05/16 17:21 97.3 05/05/16 16:00 97.3 99 20 96/69 96 Nasal Cannula 2.0 05/05/16 12:00 97.3 97 20 95/67 92 Nasal Cannula Height (Feet): 5 Height (Inches): 4.00 Weight (Pounds): 135 Respiratory/Chest: lungs clear Cardiovascular: normal rate, regular rhythm, no gallop/murmur Abdomen: soft, non tender Extremities: no edema KASIA OLIVER May 06, 2016 11:19
--- NOTE | 2016-05-06 12:11 | General Progress Note ---
Assessment/Plan Problem List: (1) Bronchospasm ICD Codes: J98.01 - Acute bronchospasm SNOMED: 4480988 (2) Pneumonia ICD Codes: J18.9 - Pneumonia, unspecified organism SNOMED: 310477171 Qualifiers: Qualified Codes: J18.9 - Pneumonia, unspecified organism (3) Arthritis of right shoulder region ICD Codes: M19.90 - Unspecified osteoarthritis, unspecified site SNOMED: 546186964, 963952160 Assessment/Plan cont as is Dc today Subjective Allergies: Coded Allergies: TETRACYCLINE (Verified Allergy, Severe, Itching, 04/28/16) SWELLING/ITCHING Subjective pain is better Objective Last 24 Hour Vital Signs Date Time Temp Pulse Resp B/P Pulse Ox O2 Delivery O2 Flow Rate FiO2 05/06/16 08:30 97.0 107 20 108/65 94 Room Air 05/06/16 07:45 Room Air 05/06/16 07:43 93 Room Air 05/06/16 04:00 97.9 95 22 112/76 90 Room Air 05/06/16 00:00 97.7 84 22 111/74 95 Nasal Cannula 2.0 05/05/16 20:42 97.3 05/05/16 20:00 96.1 79 20 102/71 92 Nasal Cannula 2.0 05/05/16 19:35 98 Nasal Cannula 2.0 05/05/16 19:35 Nasal Cannula 2.0 05/05/16 17:21 97.3 05/05/16 16:00 97.3 99 20 96/69 96 Nasal Cannula 2.0 Intake and Output 05/05/16 05/06/16 19:00 07:00 Intake Total 800 ml Balance 800 ml Intake Oral 800 ml # Voids 3 2 Height (Feet): 5 Height (Inches): 4.00 Weight (Pounds): 135 Cardiovascular: normal rate Respiratory/Chest: lungs clear RAQUEL VILLALBA May 06, 2016 12:11
[2016-05-06 12:37] VITALS: BP 110/70
[2016-05-06] MEDS ORDERED: NS 275ml ONE (13:59)
== END 2016-05-06 14:00 | DRG 178 ==
LOC: ENRESERVDT → ENRESERVTM → EDBD 21:31 → EMR 22:40 → 4W 23:00 → EDBEDREQ 23:32
PROC: 5A09357 Assistance with Respiratory Ventilation, Less than 24 Consecutive Hours, Continuous Positive Airway Pressure (ICD-10-PCS; principal; 2016-04-29)
DX: J15.1 Pneumonia due to Pseudomonas (principal); J96.12 Chronic respiratory failure with hypercapnia; J44.1 Chronic obstructive pulmonary disease with (acute) exacerbation; F31.9 Bipolar disorder, unspecified; Z87.891 Personal history of nicotine dependence; R91.1 Solitary pulmonary nodule; Z88.8 Allergy status to other drugs, medicaments and biological substances; Z96.611 Presence of right artificial shoulder joint; G89.29 Other chronic pain; M54.9 Dorsalgia, unspecified; M79.606 Pain in leg, unspecified; G25.81 Restless legs syndrome; D50.9 Iron deficiency anemia, unspecified; J98.01 Acute bronchospasm
CPT/HCPCS: 36415; 71010; 71260; 80048; 80053; 81003; 82164; 83605; 83880; 84484; 85025; 86606; 86635; 86710; 86713; 86738; 87040; 87070; 87181; 87205; 87385; 87449; 93005; 93971; 94640; 94660; 94664; 94760; J7620

== ENCOUNTER 2016-11-12 14:30 | Emergency (ER) | payer MEDICARE, MEDICAID ==
[~2016-11-12] VITALS: Ht 162.6 cm; Wt 62.6 kg
[~2016-11-12 14:30] MED LIST changes: +LEVAQUIN750 MG ORAL; +MORPHINE 22 MG/1 ML IV; +MORPHINE 44 MG/1 ML IV
[2016-11-12] MEDS ORDERED: Ipratropium 0.02% Inh Soln 2.5ml UD HHN ONE (15:00)
[2016-11-12] MEDS ORDERED: Albuterol ud Inhalation HHN ONE (15:00)
[2016-11-12 15:28] VITALS: BP 98/64
[2016-11-12] MEDS ORDERED: PREDNISONE20 MG ORAL (15:29)
[2016-11-12] MEDS ORDERED: ALBUTEROL SULF8.5 GM INH (15:29)
--- NOTE | 2016-11-12 15:43 | Emergency Room Report ---
History of Present Illness General Chief Complaint: Dyspnea/Respdistress Source: Patient Present Illness HPI Patient presents emergency department today complaining of acute shortness of breath. Patient states that she has a history of COPD and she was out with her daughter in the parking lot. She felt that was very hot and she became acutely short of breath. She came in for further evaluation. Patient denies any fever nausea vomiting diarrhea or chills. Symptoms noted to be moderate. No other modifying factors. No other associated signs and symptoms. No other complaints were noted. Allergies: Coded Allergies: TETRACYCLINE (Verified Allergy, Severe, Itching, 04/28/16) SWELLING/ITCHING Patient History Past Medical History: COPD Past Surgical History: none Pertinent Family History: none Social History: Reports: smoking Reviewed Nursing Documentation: PMH: Agreed, PSxH: Agreed Nursing Documentation-PMH Hx Cardiac Problems: No Hx COPD: Yes Hx Cancer: No Hx Neurological Problems: No Review of Systems All Other Systems: negative except mentioned in HPI Physical Exam Vital Signs Date Time Temp Pulse Resp B/P Pulse Ox O2 Delivery O2 Flow Rate FiO2 11/12/16 14:33 98.1 109 24 94/67 94 Room Air Sp02 EP Interpretation: reviewed, normal General Appearance: normal inspection, well appearing, no apparent distress, alert Head: atraumatic Eyes: bilateral eye normal inspection ENT: normal ENT inspection, hearing grossly normal, normal voice Neck: normal inspection, full range of motion, supple, no bony tend Respiratory: respiratory distress, wheezing, expiration, inspiration Cardiovascular #1: regular rate, rhythm, no edema Gastrointestinal: normal inspection, normal bowel sounds, non tender, soft, no guarding, no hernia Genitourinary: no CVA tenderness Musculoskeletal: normal inspection, back normal, normal range of motion Neurologic: normal inspection, alert, responsive, speech normal Psychiatric: normal inspection, judgement/insight normal, mood/affect normal Skin: normal inspection, normal color, no rash Medical Decision Making Diagnostic Impression: Primary Impression: COPD (chronic obstructive pulmonary disease) Qualified Codes: J44.1 - Chronic obstructive pulmonary disease with (acute) exacerbation ER Course Patient presents emergency department today complaining of shortness of breath. Differential diagnoses include acute pneumonia, CHF, acute coronary syndrome, pneumothorax, asthma, COPD flare, just to name a few. Patient exam is consistent with acute COPD flare. Patient was given respiratory treatment with significant improvement in symptoms. Given the patient is feeling much better and is requesting discharge felt the patient can be discharged. Patient was given a prescription for prednisone and albuterol.Patient is advised to follow up with primary doctor in 2-3 days and return the emergency room for any worsening symptoms and as needed. Last Vital Signs Date Time Temp Pulse Resp B/P Pulse Ox O2 Delivery O2 Flow Rate FiO2 11/12/16 15:28 97.9 101 22 98/64 96 Room Air Disposition: HOME, SELF-CARE Condition: Stable Scripts Albuterol Sulfate* (ALBUTEROL SULFATE MDI*) 8.5 Gm Hfa.aer.ad 2 PUFF INH Q4H Y for cough/wheezing, #1 EA 0 Refills Prov: ARYA HERRMANN M.D. 11/12/16 Prednisone* (PREDNISONE*) 20 Mg Tablet 40 MG ORAL DAILY, #10 TAB Prov: ARYA HERRMANN M.D. 11/12/16 Patient Instructions: Chronic Obstructive Pulmonary Disease Exacerbation ARYA HERRMANN M.D. Nov 12, 2016 15:43
[2016-11-12 15:47] VITALS: BP 102/69
[2016-11-13] MEDS ORDERED: PREDNISONE20 MG ORAL (11:01)
[2016-11-14] MEDS ORDERED: QUETIAPINE FUMA25 MG ORAL (13:03)
== END 2016-11-12 15:45 | disposition home or self-care (01) ==
LOC: EMR 15:08
DX: J44.1 Chronic obstructive pulmonary disease with (acute) exacerbation (principal); F17.200 Nicotine dependence, unspecified, uncomplicated; Z88.1 Allergy status to other antibiotic agents
CPT/HCPCS: 94640; 94664; 99284

== ENCOUNTER 2016-11-26 09:16 | Inpatient (IN) | payer MEDICARE, MEDICAID ==
[~2016-11-26] VITALS: Ht 162.6 cm; Wt 59.0 kg
[2016-11-26] VITALS (7 sets, daily range): BP systolic 96–156; BP diastolic 66–81
[~2016-11-26 09:16] MED LIST changes: +ALBUTEROL SULF8.5 GM INH; +PREDNISONE20 MG ORAL; +QUETIAPINE FUMA25 MG ORAL; +SEROQUEL100 MG ORAL
[2016-11-26] MEDS: Albuterol ud Inhalation HHN SCH ×5 (09:45→10:45)
[2016-11-26] MEDS ORDERED: PredniSONE 20mg tab ORAL ONE (09:45)
[2016-11-26] MEDS: DuoNeb 0.5-3(2.5)mg/3ml neb HHN SCH ×16 (09:59→19:40)
--- NOTE | 2016-11-26 09:59 | Emergency Room Report ---
History of Present Illness General Chief Complaint: Dyspnea/Respdistress Source: Patient Present Illness HPI 66 yo M F with history of COPD, smoker, p/w SOB for 3 days. Patient states SOB has been intermittent. SOB occurs both at rest and on exertion. +productive cough with yellow nb sputum, denies change in sputum production. also c/o of mild chest tightness assoc with sob. Patient has been using albuterol inhaler however has ran out. Patient has not been using nebulizer. No recent steroid use. Pt states that this episode is similar to other episodes of COPD exacerbation. pt states she has cpap machine at home which she uses at night Denies fever, chills. Denies sick contacts or recent travel. Patient denies history of ICU admissions, intubations Denies history of PE/DVT, no recent surgeries, prolonged immobilization, use of OCPs/HRT. Allergies: Coded Allergies: TETRACYCLINE (Verified Allergy, Severe, Itching, 04/28/16) SWELLING/ITCHING Patient History Past Medical History: COPD Past Surgical History: none Pertinent Family History: none Social History: Reports: smoking Nursing Documentation-PMH Hx Cardiac Problems: No Hx COPD: Yes Hx Cancer: No Hx Neurological Problems: No Review of Systems Respiratory: Reports: cough, shortness of breath Cardiovascular: Reports: chest pain All Other Systems: negative except mentioned in HPI Physical Exam Vital Signs Date Time Temp Pulse Resp B/P Pulse Ox O2 Delivery O2 Flow Rate FiO2 11/26/16 09:22 97.7 122 22 109/77 95 Room Air Sp02 EP Interpretation: abnormal General Appearance: alert, GCS 15, moderate distress, other - thin Appearing middle aged female. Appears to be in respiratory distress. Patient is speaking in 2 word sentences. Head: normocephalic, atraumatic Eyes: bilateral eye EOMI, bilateral eye PERRL, bilateral eye normal inspection ENT: normal ENT inspection, normal pharynx, normal voice, moist mucus membranes Neck: normal inspection, full range of motion, supple, no bony tend Respiratory: normal inspection, other - Bilateral end expiratory wheezing. Barrel chested. Tachypnea. Hypoxic on room air. Cardiovascular #1: normal inspection, no edema, normal capillary refill, tachycardia Gastrointestinal: normal inspection, non tender, soft, non-distended, no guarding Musculoskeletal: normal inspection, back normal, normal range of motion, non- tender Neurologic: normal inspection, alert, oriented x3, responsive, motor strength/ tone normal, sensory intact, normal gait, speech normal Medical Decision Making Medicare Attestation I, Florian Woo MD hereby attest that the medical record entry for date of service, 11/26/16 accurately reflects signatures/notations that I made in my capacity as MD when I treated/diagnosed the above listed Medicare beneficiary. I attest that this information is true, accurate and complete to the best of my knowledge. I understand that any falsification, omission, or concealment of material fact may subject me to administrative, civil, or criminal liability. This patient warrants hospital admission for extreme of age and has a condition that cannot be treated as outpatient. Diagnostic Impression: Primary Impression: COPD exacerbation ER Course 66 yo M F with pmhx of COPD p/w SOB for 3 days. DDX: likely COPD exacerbation, ACS, pneumonia Plan: IV access, director imaging, O2 nasal cannula, EKG obtain basic labs including blood gas, troponin, BNP Duonebs, steroids, consider mag, Will consider BIPAP for persistent or worsening respiratory status ER course: labs: ekg- no acute STT changes CXR: hyperinflated lungs no consolidation patient refused ABG patient received duonebs and steroids with slight improvement patient now able to speak in complete sentences although continues to have persistent wheezing BP not amenable to mag bipap held as patient better with nebs azithro IV ordered ER Course: Patient's respiratory status has been closely monitored in the ED. Patient has been treated with combivent, steroids Labs reveal: no leukocytosis negative trop EKG: no acute STT changes CXR reveals no acute infiltrate / hyperinflated lungs Repeat lung auscultation reveals persistent wheezing. Patent's remains tachypneic and hypoxic on room air. Disposition: Patient will be admitted to tele Patient remains serious with vital signs revealing tachypnea and hypoxia on ra Patient requires close monitoring of respiratory status, need for BIPAP, and nebulizer treatment. d/w hospitalist dr. adams EKG Diagnostic Results Rate: normal Rhythm: NSR ST Segments: no acute changes Rhythm Strip Diag. Results EP Interpretation: yes Rhythm: NSR Chest X-Ray Diagnostic Results Chest X-Ray Diagnostic Results : # of Views/Limited/Complete: 1 View Indication: Shortness of Breath Interpretation: no consolidation, no acute cardiopulmonary disease, other - hyperinfalted lungs Interpreting ER Provider: intrepreted by florian woo md Last Vital Signs Date Time Temp Pulse Resp B/P Pulse Ox O2 Delivery O2 Flow Rate FiO2 11/26/16 09:22 97.7 122 22 109/77 95 Room Air Disposition: ADMITTED INPATIENT Condition: Critical Florian Woo M.D. Nov 26, 2016 09:59
[2016-11-26 10:32] LABS: ALANINE AMINOTRANSFERASE 16 U/L (3-33); ALBUMIN/GLOBULIN RATIO 1.6 (1.0-2.7); ANION GAP 10 (5-15); ASPARTATE AMINO TRANSFERASE 16 U/L (5-40); CALCIUM 9.9 mg/dL (8.6-10.2); CARBON DIOXIDE 30 mEQ/L (20-30); CHLORIDE 103 mEQ/L (98-107); CREATININE 0.9 mg/dL (0.5-0.9); GLOMERULAR FILTRATION RATE > 60 mL/min (>60); HEMOLYSIS 10; SODIUM 143 mEQ/L (135-145)
[2016-11-26 10:33] LABS: TROPONIN I < 0.30 ng/mL (<=0.30)
[2016-11-26 10:34] LABS: BASOPHILS % (AUTO) 1.2 % (0.0-2.0); EOSINOPHILS % (AUTO) 2.6 % (0.0-3.0); MEAN CORPUSCULAR HEMOGLOBIN 31.4 PG (27.0-31.0); MEAN CORPUSCULAR HGB CONC 32.1 G/DL (32.0-36.0); MEAN CORPUSCULAR VOLUME 98 FL (80-99); MEAN PLATELET VOLUME 5.7 FL (6.5-10.1); MONOCYTES % (AUTO) 8.2 % (1.0-10.0); PLATELET COUNT 352 K/UL (150-450); RED BLOOD COUNT 4.64 M/UL (4.20-5.40); RED CELL DISTRIBUTION WIDTH 14.2 % (11.6-14.8); WHITE BLOOD COUNT 4.8 K/UL (4.8-10.8)
[2016-11-26 10:43] LABS: CKMB 3.4 ng/mL (< 3.8)
[2016-11-26] MEDS ORDERED: Ketorolac 30mg Inj IV ONE (11:00)
[2016-11-26] MEDS ORDERED: Azithromycin 500 MG in NS 275 ML IV ONE (13:00)
[2016-11-26] MEDS ORDERED: Azithromycin 500mg Inj IV ONE ×2 (13:47→14:14)
--- NOTE | 2016-11-26 15:53 | Diagnostic Imaging Report ---
Indication: SOB Technique: One view of the chest Comparison: 04/27/2016 Findings: Lungs remain hyperinflated. Previously demonstrated left basilar infiltrate is not evident currently. Lungs and pleural spaces are currently clear. The heart size is normal. Right shoulder prosthesis is again demonstrated Impression: COPD changes No acute process
[2016-11-26] MEDS ORDERED: Promethazine/DM 6.25mg/5ml ORAL ONE (16:30)
[2016-11-26] MEDS ORDERED: Morphine Sulfate 2mg/ml Inj IVP ONE (16:30)
--- NOTE | 2016-11-26 16:44 | History & Physical ---
History and Physical History & Physicial HP dictated # [id number] RAQUEL VILLALBA Nov 26, 2016 16:44
[2016-11-26] MEDS: Citalopram 20mg Tab ORAL SCH (18:13)
[2016-11-26] MEDS: Docusate 100mg cap ORAL SCH (18:13)
[2016-11-26] MEDS: Solu-MEDROL 40mg Inj IVP SCH (18:23)
[2016-11-26] MEDS: Norco 10mg/325mg tab ORAL PRN (20:06)
[2016-11-26] MEDS ORDERED: Milk of Magnesia 30ml Ud ORAL PRN (21:00)
[2016-11-27 00:31] VITALS: BP 105/86
[2016-11-27] MEDS: DuoNeb 0.5-3(2.5)mg/3ml neb HHN SCH ×5 (01:33→21:22)
--- NOTE | 2016-11-27 01:45 | History and Physical Report ---
DATE OF ADMISSION: 11/26/2016 CHIEF COMPLAINT: Shortness of breath. HISTORY OF PRESENT ILLNESS: This is a 66-year-old female with history of COPD and heavy smoker, although she said that she stopped a week ago. She comes in with shortness of breath for the past few days, today it was much worse and she was at reflection across the street. The patient stated that she usually takes nebulizers and oxygen at home, however, she was not getting better. She was recently admitted by me here in [place] and she said even after discharge, she has been on and off short of breath. PAST MEDICAL HISTORY: History of depression, history of COPD as a result of long history of smoking. MEDICATIONS: Reviewed in the EMR. ALLERGIES: Reported to tetracycline. SOCIAL HISTORY: As mentioned, the patient says that she stopped smoking a week ago. Before that, she was smoking a pack a week. REVIEW OF SYSTEMS: Noncontributory. PHYSICAL EXAMINATION: GENERAL: The patient is an elderly female, in no acute distress. VITAL SIGNS: Blood pressure is 109/77, pulse 122, respirations 22, and temperature 97.7 degrees. HEENT: [place] conjunctivae. Anicteric sclerae. NECK: Supple. LUNGS: Expiratory wheezing bilaterally. HEART: S1 and S2 without murmurs or rubs. Tachycardic. ABDOMEN: Soft and nontender. EXTREMITIES: No cyanosis or edema. LABORATORY FINDINGS: CBC shows WBC of 4.8, hematocrit 45.3, hemoglobin 14.6, and platelets 352,000. Chemistry panel shows a serum sodium of 143, potassium of 4, chloride 103, BUN 11, creatinine 0.9, and calcium 9.9. Albumin is 4.4. ASSESSMENT: This is a 66-year-old female, who was admitted with chronic obstructive pulmonary disease exacerbation. PLAN: The patient will be on handheld nebulizer with DuoNeb. The patient will be on oxygen. Cough medication will be prescribed. Also I will start the patient on IV steroids. Pulmonary consultation will be obtained. Gabriel Malagon M.D. DR: Lennox JOB#: [id number] CC:
[2016-11-27 04:00] VITALS: BP 99/69
[2016-11-27 08:14] VITALS: BP 114/77
[2016-11-27] MEDS: Citalopram 20mg Tab ORAL SCH (08:42)
[2016-11-27] MEDS: Norco 10mg/325mg tab ORAL PRN ×3 (08:43→19:46)
[2016-11-27] MEDS: Solu-MEDROL 40mg Inj IVP SCH ×2 (08:43→21:16)
[2016-11-27] MEDS: Docusate 100mg cap ORAL SCH ×2 (08:43→18:00)
[2016-11-27 11:44] VITALS: BP 119/79
[2016-11-27] MEDS: Promethazine/DM 6.25mg/5ml ORAL PRN ×2 (11:54→19:46)
[2016-11-27] MEDS: Azithromycin 250mg tab ORAL SCH (14:01)
--- NOTE | 2016-11-27 14:58 | General Progress Note ---
Assessment/Plan Problem List: (1) COPD (chronic obstructive pulmonary disease) ICD Codes: J44.9 - Chronic obstructive pulmonary disease, unspecified SNOMED: 94744902 (2) Depression ICD Codes: F32.9 - Major depressive disorder, single episode, unspecified SNOMED: 20284991 Assessment/Plan IV steroids Bronchodilators keep O2 sat > 90% Discussed with RN check UA and C&S Subjective Allergies: Coded Allergies: TETRACYCLINE (Verified Allergy, Severe, Itching, 04/28/16) SWELLING/ITCHING Subjective not better Objective Last 24 Hour Vital Signs Date Time Temp Pulse Resp B/P Pulse Ox O2 Delivery O2 Flow Rate FiO2 11/27/16 13:51 93 18 100 Nasal Cannula 2.0 11/27/16 13:43 28 11/27/16 13:43 90 18 96 Nasal Cannula 2.0 28 11/27/16 11:44 98.2 100 19 119/79 98 Nasal Cannula 11/27/16 08:48 109 20 100 Nasal Cannula 2.0 11/27/16 08:48 108 18 99 Nasal Cannula 2.0 28 11/27/16 08:14 99.0 103 18 114/77 95 Nasal Cannula 3.0 11/27/16 07:13 97 Nasal Cannula 2.0 11/27/16 07:13 Nasal Cannula 2.0 28 11/27/16 07:06 95 18 100 Nasal Cannula 2.0 11/27/16 07:00 11/27/16 07:00 93 18 97 Nasal Cannula 2.0 11/27/16 04:00 98.0 110 20 99/69 98 Nasal Cannula 2.0 11/27/16 01:39 110 18 99 Nasal Cannula 2.0 11/27/16 01:32 28 11/27/16 01:32 98 18 96 Nasal Cannula 2.0 11/27/16 00:31 97.9 125 18 105/86 99 Nasal Cannula 11/26/16 23:09 115 18 100 Nasal Cannula 2.0 11/26/16 23:09 115 18 99 Nasal Cannula 2.0 11/26/16 21:00 97.9 100 18 156/81 99 Nasal Cannula 11/26/16 19:46 118 18 99 Nasal Cannula 2.0 11/26/16 19:39 116 18 97 Nasal Cannula 2.0 11/26/16 19:36 28 11/26/16 18:52 96.3 125 21 116/72 95 Nasal Cannula 2.0 11/26/16 17:55 76 20 137/82 100 Nasal Cannula 2.0 11/26/16 16:52 125 17 98/77 91 Nasal Cannula 2.0 11/26/16 16:15 100 18 99 Nasal Cannula 2.0 28 11/26/16 15:54 85 18 98 Nasal Cannula 2.0 11/26/16 15:54 28 11/26/16 15:02 91 16 99 Nasal Cannula 2.0 11/26/16 15:00 109 23 113/68 98 Nasal Cannula 2.0 Intake and Output 11/26/16 11/27/16 18:59 06:59 Intake Total 295 ml 100 ml Balance 295 ml 100 ml Intake Oral 20 ml 100 ml IV Total 275 ml # Voids 2 Height (Feet): 5 Height (Inches): 4.00 Weight (Pounds): 130 Cardiovascular: normal rate Respiratory/Chest: expiratory wheezing Edema: no edema noted Generalized RAQUEL VILLALBA Nov 27, 2016 14:58
--- NOTE | 2016-11-27 15:46 | Cardiology Report ---
APPROVED REPORT EKG Measurement Heart [id number] PA 144P88 [id number] Normal sinus rhythm Left axis deviation Abnormal ECG
[2016-11-27 16:21] VITALS: BP 94/66
--- NOTE | 2016-11-27 17:31 | Consultation ---
Consult Note Assessment/Plan dict COPD exacerbation agree with present rx of steroids, abx and HHN MATT KAUFFMAN Nov 27, 2016 17:31
[2016-11-27 20:00] VITALS: BP 104/75
[2016-11-27] MEDS: Zolpidem 5mg tab ORAL PRN (23:42)
[2016-11-28] VITALS (8 sets, daily range): BP systolic 106–131; BP diastolic 58–82
--- NOTE | 2016-11-28 00:30 | Consultation ---
DATE OF CONSULTATION: PULMONARY CONSULTATION CHIEF COMPLAINT: Short of breath. HISTORY OF PRESENT ILLNESS: This is a 66-year-old woman with COPD was admitted because of increasing shortness of breath over the past week. She was hospitalized recently for the same thing, but continued to smoke when she got home. She states that she now has quit smoking completely four days ago. She is coughing and has some white to yellow sputum. She has no high fever. She does have occasional chest pain. She is known to have COPD with components of emphysema and chronic bronchitis. She had pneumonia about a year ago. There is no history of asthma. PAST MEDICAL HISTORY: COPD. She denies any history of hypertension, hyperlipidemia, diabetes, cancer, or other major health problems. PAST SURGICAL HISTORY: Extensive, but unrelated to the present illness. MEDICATIONS: Reviewed. She is presently on nebulized treatment with bronchodilators, antibiotics, and steroids. ALLERGIES: Tetracycline. REVIEW OF SYSTEMS: She complains of occasional leg cramps. PHYSICAL EXAMINATION: GENERAL: The patient is alert and responds appropriately. She is ambulatory. She is not in distress. She is very thin with muscle wasting. VITAL SIGNS: Stable. HEENT: Head is normocephalic. NECK: No jugular venous distention. No lymphadenopathy. CHEST: Decreased air entry with hyperresonance to percussion. CARDIAC: Rhythm is regular. Heart tones are distant. ABDOMEN: Soft and nontender. EXTREMITIES: No clubbing, cyanosis, or edema. LABORATORY AND DIAGNOSTIC STUDIES: Laboratory studies are reviewed. The saturation is satisfactory. Hemoglobin is normal at 14.6. Chemistry shows no abnormal findings. Chest x-ray shows clearing of the infiltrate from April 2016 when she was here in the past. It is consistent with emphysema. IMPRESSIONS: Chronic obstructive pulmonary disease with components of emphysema and chronic bronchitis. PLAN: The patient is on appropriate therapy at present with antibiotics, steroids, and bronchodilators. I will be happy to follow her closely in the hospital with you. I have advised her never to smoke again. Todd Sun M.D. DR: Lan JOB#: [id number] CC: Gabriel Malagon M.D.; Fax#: [phone] Soffer, M.D. ; Fax#: [phone]
[2016-11-28] MEDS: DuoNeb 0.5-3(2.5)mg/3ml neb HHN SCH ×4 (01:00→19:23)
[2016-11-28] MEDS: Norco 10mg/325mg tab ORAL PRN ×5 (01:48→21:45)
[2016-11-28] MEDS: Promethazine/DM 6.25mg/5ml ORAL PRN ×3 (01:48→21:47)
[2016-11-28 07:43] LABS: MEAN CORPUSCULAR HEMOGLOBIN 31.9 PG (27.0-31.0); MEAN CORPUSCULAR HGB CONC 32.8 G/DL (32.0-36.0); MEAN CORPUSCULAR VOLUME 97 FL (80-99); MEAN PLATELET VOLUME 5.9 FL (6.5-10.1); PLATELET COUNT 344 K/UL (150-450); RED BLOOD COUNT 3.98 M/UL (4.20-5.40); RED CELL DISTRIBUTION WIDTH 14.1 % (11.6-14.8); WHITE BLOOD COUNT 10.9 K/UL (4.8-10.8)
[2016-11-28 07:51] LABS: THYROID STIMULATING HORMONE 0.098 uIU/mL (0.300-4.500)
[2016-11-28 08:03] LABS: ALANINE AMINOTRANSFERASE 16 U/L (3-33); ANION GAP 10 (5-15); ASPARTATE AMINO TRANSFERASE 17 U/L (5-40); CALCIUM 9.9 mg/dL (8.6-10.2); CARBON DIOXIDE 30 mEQ/L (20-30); CHLORIDE 98 mEQ/L (98-107); CREATININE 0.8 mg/dL (0.5-0.9); GLOMERULAR FILTRATION RATE > 60 mL/min (>60); HEMOLYSIS 5; POTASSIUM 4.7 mEQ/L (3.4-4.9); SODIUM 138 mEQ/L (135-145); TOTAL PROTEIN 6.1 g/dL (6.6-8.7)
[2016-11-28] MEDS: Docusate 100mg cap ORAL SCH ×2 (08:37→17:24)
[2016-11-28] MEDS: Citalopram 20mg Tab ORAL SCH (08:38)
[2016-11-28] MEDS: Solu-MEDROL 40mg Inj IVP SCH ×2 (08:38→21:26)
[2016-11-28 10:58] LABS: BAND NEUTROPHILS % (MANUAL) 3 % (0-8); BASOPHILS % (MANUAL) 0 % (0-2); EOSINOPHILS % (MANUAL) 0 % (0-3); LYMPHOCYTES % (MANUAL) 8 % (20-45); NEUTROPHILS % (MANUAL) 86 % (45-75); PLATELET ESTIMATE ADEQUATE; PLATELET MORPHOLOGY NORMAL; TOTAL CELLS COUNTED 100
[2016-11-28] MEDS: Azithromycin 250mg tab ORAL SCH (13:11)
--- NOTE | 2016-11-28 13:55 | General Progress Note ---
Assessment/Plan Problem List: (1) COPD (chronic obstructive pulmonary disease) ICD Codes: J44.9 - Chronic obstructive pulmonary disease, unspecified SNOMED: 36919684 (2) Depression ICD Codes: F32.9 - Major depressive disorder, single episode, unspecified SNOMED: 86820692 Assessment/Plan IV steroids Bronchodilators keep O2 sat > 90% check UA and C&S Subjective Allergies: Coded Allergies: TETRACYCLINE (Verified Allergy, Severe, Itching, 04/28/16) SWELLING/ITCHING Subjective In NAD Objective Last 24 Hour Vital Signs Date Time Temp Pulse Resp B/P Pulse Ox O2 Delivery O2 Flow Rate FiO2 11/28/16 13:40 107 24 99 Nasal Cannula 2.0 11/28/16 13:23 104 22 99 Nasal Cannula 2.0 11/28/16 12:00 97.5 103 19 115/58 97 Nasal Cannula 11/28/16 10:03 89 18 100 Nasal Cannula 2.0 11/28/16 09:43 88 18 100 Nasal Cannula 2.0 11/28/16 08:00 97.9 90 18 131/75 97 Nasal Cannula 2.0 11/28/16 07:11 Nasal Cannula 2.0 11/28/16 07:10 86 20 100 Nasal Cannula 2.0 11/28/16 07:00 100 Nasal Cannula 2.0 11/28/16 06:58 87 18 100 Nasal Cannula 2.0 11/28/16 04:00 97.7 83 18 117/69 94 Nasal Cannula 2.0 11/28/16 01:32 Nasal Cannula 2.0 28 11/28/16 01:32 Nasal Cannula 2.0 11/28/16 00:00 97.3 86 18 115/82 97 Nasal Cannula 2.0 11/27/16 21:28 28 11/27/16 21:28 94 20 100 Nasal Cannula 2.0 28 11/27/16 21:23 84 18 97 Nasal Cannula 2.0 28 11/27/16 21:11 97 Nasal Cannula 2.0 28 11/27/16 21:11 Nasal Cannula 2.0 28 11/27/16 20:00 97.7 86 18 104/75 97 Nasal Cannula 2.0 11/27/16 16:21 97.8 98 18 94/66 100 Nasal Cannula 2.0 Intake and Output 11/27/16 11/28/16 19:00 07:00 Intake Total 925 ml 320 ml Balance 925 ml 320 ml Intake Oral 925 ml 320 ml # Voids 1 2 # Bowel Movements 2 Laboratory Tests 11/28/16 04:35: White Blood Count 10.9H, Red Blood Count 3.98L, Hemoglobin 12.7, Hematocrit 38.8 , Mean Corpuscular Volume 97, Mean Corpuscular Hemoglobin 31.9H, Mean Corpuscular Hemoglobin Concent 32.8, Red Cell Distribution Width 14.1, Platelet Count 344, Mean Platelet Volume 5.9L, Neutrophils (%) (Auto) , Lymphocytes (%) ( Auto) , Monocytes (%) (Auto) , Eosinophils (%) (Auto) , Basophils (%) (Auto) , Differential Total Cells Counted 100, Neutrophils % (Manual) 86H, Lymphocytes % (Manual) 8L, Monocytes % (Manual) 3, Eosinophils % (Manual) 0, Basophils % ( Manual) 0, Band Neutrophils 3, Platelet Estimate Adequate, Platelet Morphology Normal, Sodium Level 138, Potassium Level 4.7, Chloride Level 98, Carbon Dioxide Level 30, Anion Gap 10, Blood Urea Nitrogen 19, Creatinine 0.8, Estimat Glomerular Filtration Rate > 60, Glucose Level 117H, Calcium Level 9.9, Total Bilirubin < 0.2, Aspartate Amino Transf (AST/SGOT) 17, Alanine Aminotransferase (ALT/SGPT) 16, Alkaline Phosphatase 53, Total Protein 6.1L, Albumin 4.1, Globulin 2.0, Albumin/Globulin Ratio 2.0, Thyroid Stimulating Hormone (TSH) 0.098L Height (Feet): 5 Height (Inches): 4.00 Weight (Pounds): 130 Cardiovascular: normal rate Respiratory/Chest: lungs clear Abdomen: soft RAQUEL VILLALBA Nov 28, 2016 13:55
--- NOTE | 2016-11-28 16:50 | Pulmonology Progress Note ---
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 cont steroids, taper soon abx HHN will follow Subjective Constitutional: Denies: fever Respiratory: Reports: productive cough, shortness of breath - less, sputum - white Allergies: Coded Allergies: TETRACYCLINE (Verified Allergy, Severe, Itching, 04/28/16) SWELLING/ITCHING Objective Last 24 Hour Vital Signs Date Time Temp Pulse Resp B/P Pulse Ox O2 Delivery O2 Flow Rate FiO2 11/28/16 16:00 97.9 102 20 122/82 94 Nasal Cannula 11/28/16 13:40 107 24 99 Nasal Cannula 2.0 11/28/16 13:23 104 22 99 Nasal Cannula 2.0 11/28/16 12:00 97.5 103 19 115/58 97 Nasal Cannula 11/28/16 10:03 89 18 100 Nasal Cannula 2.0 11/28/16 09:43 88 18 100 Nasal Cannula 2.0 11/28/16 08:00 97.9 90 18 131/75 97 Nasal Cannula 2.0 11/28/16 07:11 Nasal Cannula 2.0 11/28/16 07:10 86 20 100 Nasal Cannula 2.0 11/28/16 07:00 100 Nasal Cannula 2.0 11/28/16 06:58 87 18 100 Nasal Cannula 2.0 11/28/16 04:00 97.7 83 18 117/69 94 Nasal Cannula 2.0 11/28/16 01:32 Nasal Cannula 2.0 11/28/16 01:32 Nasal Cannula 2.0 28 11/28/16 00:00 97.3 86 18 115/82 97 Nasal Cannula 2.0 11/27/16 21:28 28 11/27/16 21:28 94 20 100 Nasal Cannula 2.0 11/27/16 21:23 84 18 97 Nasal Cannula 2.0 28 11/27/16 21:11 97 Nasal Cannula 2.0 28 11/27/16 21:11 Nasal Cannula 2.0 28 11/27/16 20:00 97.7 86 18 104/75 97 Nasal Cannula 2.0 Intake and Output 11/27/16 11/28/16 19:00 07:00 Intake Total 925 ml 320 ml Balance 925 ml 320 ml Intake Oral 925 ml 320 ml # Voids 1 2 # Bowel Movements 2 General Appearance: no acute distress HEENT: atraumatic Respiratory/Chest: decreased breath sounds, expiratory wheezing Cardiovascular: normal rate Extremities: other - muscle wasting Microbiology Date/Time Source Procedure Growth Status 11/26/16 10:00 Blood Not Otherwise Specified Blood Culture - Preliminary NO GROWTH AFTER 24 HOURS Resulted 11/27/16 15:10 Urine,Clean Catch Urine Culture - Preliminary NO GROWTH Resulted Laboratory Tests 11/28/16 04:35: White Blood Count 10.9H, Red Blood Count 3.98L, Hemoglobin 12.7, Hematocrit 38.8 , Mean Corpuscular Volume 97, Mean Corpuscular Hemoglobin 31.9H, Mean Corpuscular Hemoglobin Concent 32.8, Red Cell Distribution Width 14.1, Platelet Count 344, Mean Platelet Volume 5.9L, Neutrophils (%) (Auto) , Lymphocytes (%) ( Auto) , Monocytes (%) (Auto) , Eosinophils (%) (Auto) , Basophils (%) (Auto) , Differential Total Cells Counted 100, Neutrophils % (Manual) 86H, Lymphocytes % (Manual) 8L, Monocytes % (Manual) 3, Eosinophils % (Manual) 0, Basophils % ( Manual) 0, Band Neutrophils 3, Platelet Estimate Adequate, Platelet Morphology Normal, Sodium Level 138, Potassium Level 4.7, Chloride Level 98, Carbon Dioxide Level 30, Anion Gap 10, Blood Urea Nitrogen 19, Creatinine 0.8, Estimat Glomerular Filtration Rate > 60, Glucose Level 117H, Calcium Level 9.9, Total Bilirubin < 0.2, Aspartate Amino Transf (AST/SGOT) 17, Alanine Aminotransferase (ALT/SGPT) 16, Alkaline Phosphatase 53, Total Protein 6.1L, Albumin 4.1, Globulin 2.0, Albumin/Globulin Ratio 2.0, Thyroid Stimulating Hormone (TSH) 0.098L Current Medications Medications (Trade) Dose Ordered Sig/Josh Route PRN Reason Start Time Stop Time Status Last Admin Dose Admin Acetaminophen (Tylenol) 650 mg Q4H PRN ORAL T>100.5 11/26/16 18:00 12/26/16 17:59 Acetaminophen/ Hydrocodone Bitart ([place] 10/325) 1 ea Q4H PRN ORAL Pain Scale (6-10) 11/26/16 20:00 12/03/16 19:59 11/28/16 16:18 Albuterol/ Ipratropium (DuoNeb 0.5-3(2.5)mg/3ml) 3 ml Q6HRT HHN 11/26/16 19:00 12/01/16 18:59 11/28/16 13:21 Azithromycin (Zithromax) 250 mg Q24H ORAL 11/27/16 14:00 12/04/16 13:59 11/28/16 13:11 Citalopram Hydrobromide (celeXA) 40 mg DAILY ORAL 11/26/16 18:00 12/26/16 17:59 11/28/16 08:38 Dextrose (Dextrose 50%) STAT PRN IV Hypoglycemia 11/26/16 18:00 12/26/16 17:59 Docusate Sodium (Colace) 100 mg TWICE A DAY ORAL 11/26/16 18:00 12/26/16 17:59 11/28/16 08:37 Magnesium Hydroxide (Mom) 30 ml HSPRN PRN ORAL Constipation 11/26/16 21:00 12/26/16 20:59 Methylprednisolone Sodium Succinate (Solu-MEDROL) 40 mg EVERY 12 HOURS IVP 11/26/16 18:00 12/26/16 17:59 11/28/16 08:38 Ondansetron HCl (Zofran) 4 mg Q6H PRN IVP Nausea & Vomiting 11/26/16 18:00 12/26/16 17:59 Promethazine HCl/ Dextromethorphan (Phenergan DM) 6.25 mg Q6H PRN ORAL For Cough 11/27/16 11:15 12/27/16 11:14 11/28/16 08:38 Quetiapine Fumarate (SEROquel) 100 mg QHS ORAL 11/26/16 21:00 12/26/16 20:59 11/27/16 21:16 Ranitidine HCl (Zantac) 150 mg TWICE A DAY ORAL 11/26/16 18:00 12/26/16 17:59 11/28/16 08:37 Tiotropium [place] (Spiriva Inhaler) 1 puff DAILY INH 11/26/16 20:00 12/26/16 19:59 11/28/16 09:41 Zolpidem Tartrate (Ambien) 5 mg HSPRN PRN ORAL Insomnia 11/26/16 21:00 12/26/16 20:59 11/27/16 23:42 MATT KAUFFMAN Nov 28, 2016 16:50
[2016-11-29] MEDS: DuoNeb 0.5-3(2.5)mg/3ml neb HHN SCH ×4 (01:34→19:14)
[2016-11-29 04:06] VITALS: BP 101/73
[2016-11-29 04:17] VITALS: BP 99/71
[2016-11-29] MEDS: Norco 10mg/325mg tab ORAL PRN ×4 (07:56→21:33)
[2016-11-29] MEDS: Solu-MEDROL 40mg Inj IVP SCH ×2 (08:05→21:05)
[2016-11-29 08:16] VITALS: BP 103/83
[2016-11-29] MEDS: Docusate 100mg cap ORAL SCH ×4 (08:25→17:35)
[2016-11-29] MEDS: Citalopram 20mg Tab ORAL SCH (08:25)
--- NOTE | 2016-11-29 08:51 | Pulmonology Progress Note ---
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 still wheezing a lot cont steroids abx HHN Subjective Constitutional: Denies: fever Respiratory: Reports: shortness of breath, wheezing Allergies: Coded Allergies: TETRACYCLINE (Verified Allergy, Severe, Itching, 04/28/16) SWELLING/ITCHING Objective Last 24 Hour Vital Signs Date Time Temp Pulse Resp B/P Pulse Ox O2 Delivery O2 Flow Rate FiO2 11/29/16 08:24 98 18 100 Nasal Cannula 2.0 11/29/16 08:20 98 18 100 Nasal Cannula 2.0 11/29/16 08:17 98 18 100 Nasal Cannula 2.0 28 11/29/16 08:16 97.6 89 20 103/83 96 Nasal Cannula 2.0 11/29/16 08:07 102 20 95 Nasal Cannula 2.0 11/29/16 08:06 Nasal Cannula 2.0 28 11/29/16 08:05 95 Nasal Cannula 2.0 28 11/29/16 04:17 96.8 78 20 99/71 96 Room Air 11/29/16 04:06 97.5 78 18 101/73 94 Room Air 11/29/16 01:37 28 11/29/16 01:35 102 22 88 Room Air 21 11/28/16 23:49 96.6 76 20 106/75 94 Room Air 11/28/16 22:44 97.0 11/28/16 20:53 97.0 93 20 106/73 95 Room Air 11/28/16 20:00 97.7 103 18 123/76 Nasal Cannula 11/28/16 19:36 98 16 89 Nasal Cannula 2.0 11/28/16 19:23 Nasal Cannula 2.0 28 11/28/16 19:23 28 11/28/16 19:23 87 16 98 Nasal Cannula 2.0 28 11/28/16 19:23 98 Nasal Cannula 2.0 28 11/28/16 16:00 97.9 102 20 122/82 94 Nasal Cannula 11/28/16 13:40 107 24 99 Nasal Cannula 2.0 11/28/16 13:23 104 22 99 Nasal Cannula 2.0 11/28/16 12:00 97.5 103 19 115/58 97 Nasal Cannula 11/28/16 10:03 89 18 100 Nasal Cannula 2.0 8/17/17 09:43 88 18 100 Nasal Cannula 2.0 Intake and Output 11/28/16 11/29/16 19:00 07:00 Intake Total 1560 ml 840 ml Balance 1560 ml 840 ml Intake Oral 1560 ml 840 ml # Voids 5 1 # Bowel Movements 1 HEENT: normocephalic Respiratory/Chest: expiratory wheezing Cardiovascular: normal rate Microbiology Date/Time Source Procedure Growth Status 11/26/16 10:00 Blood Not Otherwise Specified Blood Culture - Preliminary NO GROWTH AFTER 48 HOURS Resulted 11/27/16 15:10 Urine,Clean Catch Urine Culture - Preliminary NO GROWTH AFTER 24 HOURS Resulted Current Medications Medications (Trade) Dose Ordered Sig/Josh Route PRN Reason Start Time Stop Time Status Last Admin Dose Admin Acetaminophen (Tylenol) 650 mg Q4H PRN ORAL T>100.5 11/26/16 18:00 12/26/16 17:59 Acetaminophen/ Hydrocodone Bitart ([place] 10/325) 1 ea Q4H PRN ORAL Pain Scale (6-10) 11/26/16 20:00 12/03/16 19:59 11/29/16 07:56 Albuterol/ Ipratropium (DuoNeb 0.5-3(2.5)mg/3ml) 3 ml Q6HRT HHN 11/26/16 19:00 12/01/16 18:59 11/29/16 08:11 Azithromycin (Zithromax) 250 mg Q24H ORAL 11/27/16 14:00 12/04/16 13:59 11/28/16 13:11 Citalopram Hydrobromide (celeXA) 40 mg DAILY ORAL 11/26/16 18:00 12/26/16 17:59 11/29/16 08:25 Dextrose (Dextrose 50%) STAT PRN IV Hypoglycemia 11/26/16 18:00 12/26/16 17:59 Docusate Sodium (Colace) 100 mg TWICE A DAY ORAL 11/26/16 18:00 12/26/16 17:59 11/28/16 17:24 Magnesium Hydroxide (Mom) 30 ml HSPRN PRN ORAL Constipation 11/26/16 21:00 12/26/16 20:59 Methylprednisolone Sodium Succinate (Solu-MEDROL) 40 mg EVERY 12 HOURS IVP 11/26/16 18:00 12/26/16 17:59 11/29/16 08:05 Ondansetron HCl (Zofran) 4 mg Q6H PRN IVP Nausea & Vomiting 11/26/16 18:00 12/26/16 17:59 Promethazine HCl/ Dextromethorphan (Phenergan DM) 6.25 mg Q6H PRN ORAL For Cough 11/27/16 11:15 12/27/16 11:14 11/28/16 21:47 Quetiapine Fumarate (SEROquel) 100 mg QHS ORAL 11/26/16 21:00 12/26/16 20:59 11/28/16 21:43 Ranitidine HCl (Zantac) 150 mg TWICE A DAY ORAL 11/26/16 18:00 12/26/16 17:59 11/29/16 08:25 Tiotropium [place] (Spiriva Inhaler) 1 puff DAILY INH 11/26/16 20:00 12/26/16 19:59 11/29/16 08:19 Zolpidem Tartrate (Ambien) 5 mg HSPRN PRN ORAL Insomnia 11/26/16 21:00 12/26/16 20:59 11/27/16 23:42 MATT KAUFFMAN Nov 29, 2016 08:51
--- NOTE | 2016-11-29 09:07 | Diagnostic Imaging Report ---
Clinical Indication: SOB Technique: Spiral acquisitions obtained through the chest. No IV contrast utilized, reason not stated. Multiplanar reconstructions generated. Total dose length product 438 mGycm. CTDIvol(s) 12 mGy. Dose reduction achieved using automated exposure control Comparison: 04/29/2016 Findings:Again demonstrated is diffuse pulmonary parenchymal hyperinflation, consistent with COPD changes. Previously demonstrated areas of consolidation have resolved. Previously demonstrated areas of nodularity and interstitial septal abnormality are no longer evident. There is equivocally trace residual pleural fluid in the bilateral costophrenic sulci, decreased from previously. Linear opacities at the right lung base likely represent scarring. There is also some volume loss in the right costophrenic sulcus, which most likely represents an area of scarring/cicatrization, but could indicate some atelectasis. There is also some scarring at the left lung base. Calcified pleural plaques are seen focally in the posterior medial right pleural space inferiorly, as well as at the left lung apex. No acute infiltrates. No effusions. No masses or nodules. The heart size is normal. There is minimal pericardial thickening. No mediastinal or hilar mass or adenopathy demonstrated. The included thyroid is unremarkable. No axillary or chest wall mass or adenopathy. There is right shoulder prosthesis. The bones are otherwise unremarkable. The included upper abdominal anatomy is remarkable for the presence of cholecystectomy clips. Impression: Pulmonary hyperinflation, consistent with COPD changes. No acute pulmonary process demonstrated Trace bilateral pleural fluid Bilateral basilar scarring. Calcified pleural plaques. These may indicate prior granulomatous disease versus prior asbestos exposure Right shoulder prosthesis Cholecystectomy The CT scanner at [facility] is accredited by the [employer] and the scans are performed using protocols designed to limit radiation exposure to as low as reasonably achievable to attain images of sufficient resolution adequate for diagnostic evaluation.
[2016-11-29 11:31] VITALS: BP 150/76
[2016-11-29] MEDS: Promethazine/DM 6.25mg/5ml ORAL PRN (11:51)
[2016-11-29] MEDS: Azithromycin 250mg tab ORAL SCH (13:59)
--- NOTE | 2016-11-29 14:14 | General Progress Note ---
Assessment/Plan Problem List: (1) COPD (chronic obstructive pulmonary disease) ICD Codes: J44.9 - Chronic obstructive pulmonary disease, unspecified SNOMED: 35135509 (2) Depression ICD Codes: F32.9 - Major depressive disorder, single episode, unspecified SNOMED: 69335027 Assessment/Plan taper steroids tomorrow Bronchodilators check UA Subjective Allergies: Coded Allergies: TETRACYCLINE (Verified Allergy, Severe, Itching, 04/28/16) SWELLING/ITCHING Subjective feels better Objective Last 24 Hour Vital Signs Date Time Temp Pulse Resp B/P Pulse Ox O2 Delivery O2 Flow Rate FiO2 11/29/16 13:36 96 20 95 Nasal Cannula 2.0 28 11/29/16 13:21 99 20 83 Nasal Cannula 2.0 11/29/16 12:51 97.9 11/29/16 11:31 97.9 96 20 150/76 94 Nasal Cannula 2.0 11/29/16 08:24 98 18 100 Nasal Cannula 2.0 11/29/16 08:20 98 18 100 Nasal Cannula 2.0 11/29/16 08:17 98 18 100 Nasal Cannula 2.0 11/29/16 08:16 97.6 89 20 103/83 96 Nasal Cannula 2.0 11/29/16 08:07 102 20 95 Nasal Cannula 2.0 11/29/16 08:06 Nasal Cannula 2.0 11/29/16 08:05 95 Nasal Cannula 2.0 11/29/16 04:17 96.8 78 20 99/71 96 Room Air 11/29/16 04:06 97.5 78 18 101/73 94 Room Air 11/29/16 01:37 28 11/29/16 01:35 102 22 88 Room Air 21 11/28/16 23:49 96.6 76 20 106/75 94 Room Air 11/28/16 20:53 97.0 93 20 106/73 95 Room Air 11/28/16 20:00 97.7 103 18 123/76 Nasal Cannula 11/28/16 19:36 98 16 89 Nasal Cannula 2.0 11/28/16 19:23 Nasal Cannula 2.0 28 11/28/16 19:23 28 11/28/16 19:23 87 16 98 Nasal Cannula 2.0 11/28/16 19:23 98 Nasal Cannula 2.0 11/28/16 16:00 97.9 102 20 122/82 94 Nasal Cannula Intake and Output 11/28/16 11/29/16 19:00 07:00 Intake Total 1560 ml 840 ml Balance 1560 ml 840 ml Intake Oral 1560 ml 840 ml # Voids 5 1 # Bowel Movements 1 Height (Feet): 5 Height (Inches): 4.00 Weight (Pounds): 130 Cardiovascular: normal rate Respiratory/Chest: lungs clear, expiratory wheezing - less RAQUEL VILLALBA Nov 29, 2016 14:14
--- NOTE | 2016-11-29 14:53 | Physician Query ---
PLEASE COMPLETE THE FORM BEFORE SIGNING Dear Dr. Todd Sun Date November Lpn Rn/CDS MAKSIM Saba Lpn Rn/CDS Phone #: [phone] Exercise your independent professional judgment when responding to query. Questions asked do not imply particular answer is desired or expected. We greatly appreciate your clarification on this issue. Clinical Documentation States: This is a 66-year-old woman with COPD was admitted because of increasing shortness of breath over the past week.She is known to have COPD with components of emphysema and chronic bronchitis. Clinical Findings Show: ABG:_The saturation is satisfactory RR: Ranging from 16 to 22 with shortness of breath Respiratory: Reports: productive cough," shortness of breath - less" sputum - white - Progress notes Day 1 after admission. Please clarify if the patient had any of the following conditions based on the above clinical findings: []Respiratory Failure [] Acute [] Chronic (on home O2) [x]Acute on Chronic [] Acute Respiratory Distress [] Acute Respiratory Insufficiency [] Respiratory failure due to trauma [] Respiratory insufficiency due to trauma [] Unable to determine [] Other: Condition Present on Admission: [x] Yes [] No []Clinically Undeterminable Please also document in your Progress Notes and/or Discharge Summary and indicate if the condition was present on admission. Todd Sun MD Date/Time [facility]
[2016-11-29 15:37] VITALS: BP 124/84
[2016-11-29 20:00] VITALS: BP 119/94
[2016-11-30] VITALS: BP 97/74
[2016-11-30] MEDS: DuoNeb 0.5-3(2.5)mg/3ml neb HHN SCH ×4 (01:00→19:47)
[2016-11-30 04:00] VITALS: BP 112/70
[2016-11-30] MEDS: Norco 10mg/325mg tab ORAL PRN ×3 (06:36→20:42)
[2016-11-30] MEDS: Docusate 100mg cap ORAL SCH ×2 (08:10→17:04)
[2016-11-30] MEDS: Citalopram 20mg Tab ORAL SCH (08:10)
[2016-11-30 08:12] VITALS: BP 135/96
[2016-11-30] MEDS: Solu-MEDROL 40mg Inj IVP SCH ×2 (09:10→20:43)
[2016-11-30 11:28] VITALS: BP 140/79
[2016-11-30 11:35] LABS: APPEARANCE,URINE CLEAR; KETONES,URINE NEGATIVE (NEGATIVE); LEUKOCYTE ESTERASE ,URINE 1+ (NEGATIVE); NITRITE,URINE NEGATIVE (NEGATIVE); PH,URINE 7 (4.5-8.0); PROTEIN,URINE NEGATIVE (NEGATIVE); UROBILINOGEN,URINE NORMAL MG/DL (0.0-1.0)
[2016-11-30 11:49] LABS: RBC,URINE 0 /HPF (0 - 2); SQUAMOUS EPITHELIAL CELL,UR OCCASIONAL /LPF (NONE/OCC); WBC,URINE 0-2 /HPF (0 - 2)
--- NOTE | 2016-11-30 12:16 | Pulmonology Progress Note ---
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 still wheezing a lot cont steroids and taper in am 40 daily has o2 at home abx HHN dc planning watch io Subjective Constitutional: Reports: no symptoms Respiratory: Reports: productive cough Cardiovascular: Reports: no symptoms Genitourinary: Reports: no symptoms Neurologic: Reports: no symptoms Psychiatric: Reports: no symptoms Skin: Reports: no symptoms Allergies: Coded Allergies: TETRACYCLINE (Verified Allergy, Severe, Itching, 04/28/16) SWELLING/ITCHING Subjective doing well remains on 3 l no distress no wheezing at this time toplerateing po no fever noted cough better Objective Last 24 Hour Vital Signs Date Time Temp Pulse Resp B/P Pulse Ox O2 Delivery O2 Flow Rate FiO2 11/30/16 11:28 97.9 92 20 140/79 96 Nasal Cannula 3.0 11/30/16 08:20 110 20 98 Nasal Cannula 2.0 11/30/16 08:17 110 20 98 Nasal Cannula 3.0 32 11/30/16 08:12 98.0 106 20 135/96 94 Nasal Cannula 3.0 11/30/16 07:58 Nasal Cannula 2.0 28 11/30/16 07:57 98 Nasal Cannula 2.0 28 11/30/16 07:55 110 18 98 Nasal Cannula 3.0 32 11/30/16 07:45 110 20 94 Nasal Cannula 2.0 32 11/30/16 07:35 97.3 11/30/16 04:00 97.3 61 20 112/70 94 Room Air 11/30/16 01:26 Nasal Cannula 3.0 32 11/30/16 01:26 Nasal Cannula 3.0 32 11/30/16 00:00 97.9 82 18 97/74 95 Room Air 11/29/16 20:00 97.7 96 20 119/94 96 Nasal Cannula 2.0 11/29/16 19:24 108 20 98 Nasal Cannula 3.0 32 11/29/16 19:14 104 20 94 Nasal Cannula 3.0 32 11/29/16 19:14 Nasal Cannula 3.0 32 11/29/16 19:14 94 Nasal Cannula 3.0 32 11/29/16 15:37 97.9 93 20 124/84 94 Nasal Cannula 2.0 11/29/16 13:36 96 20 95 Nasal Cannula 2.0 28 11/29/16 13:21 99 20 83 Nasal Cannula 2.0 Intake and Output 11/29/16 11/30/16 19:00 07:00 Intake Total 1010 ml 440 ml Balance 1010 ml 440 ml Intake Oral 1010 ml 440 ml # Voids 5 6 General Appearance: WD/WN Respiratory/Chest: normal breath sounds, rhonchi Cardiovascular: normal rate, regular rhythm Abdomen: soft, non tender, non distended Extremities: no clubbing Skin: no lesions Neurologic/Psychiatric: no motor/sensory deficits, alert, oriented x 3 Lymphatic: no neck adenopathy Musculoskeletal: normal muscle bulk Microbiology Date/Time Source Procedure Growth Status 11/27/16 15:10 Urine,Clean Catch Urine Culture - Final NO GROWTH AFTER 48 HOURS Complete Current Medications Medications (Trade) Dose Ordered Sig/Josh Route PRN Reason Start Time Stop Time Status Last Admin Dose Admin Acetaminophen (Tylenol) 650 mg Q4H PRN ORAL T>100.5 11/26/16 18:00 12/26/16 17:59 Acetaminophen/ Hydrocodone Bitart ([place] 10/325) 1 ea Q4H PRN ORAL Pain Scale (6-10) 11/26/16 20:00 12/03/16 19:59 11/30/16 06:36 Albuterol/ Ipratropium (DuoNeb 0.5-3(2.5)mg/3ml) 3 ml Q6HRT HHN 11/26/16 19:00 12/01/16 18:59 11/30/16 07:55 Azithromycin (Zithromax) 250 mg Q24H ORAL 11/27/16 14:00 12/04/16 13:59 11/29/16 13:59 Citalopram Hydrobromide (celeXA) 40 mg DAILY ORAL 11/26/16 18:00 12/26/16 17:59 11/30/16 08:10 Dextrose (Dextrose 50%) STAT PRN IV Hypoglycemia 11/26/16 18:00 12/26/16 17:59 Docusate Sodium (Colace) 100 mg TWICE A DAY ORAL 11/26/16 18:00 12/26/16 17:59 11/28/16 17:24 Magnesium Hydroxide (Mom) 30 ml HSPRN PRN ORAL Constipation 11/26/16 21:00 9/14/17 20:59 Methylprednisolone Sodium Succinate (Solu-MEDROL) 40 mg EVERY 12 HOURS IVP 11/26/16 18:00 12/26/16 17:59 11/30/16 09:10 Ondansetron HCl (Zofran) 4 mg Q6H PRN IVP Nausea & Vomiting 11/26/16 18:00 12/26/16 17:59 Promethazine HCl/ Dextromethorphan (Phenergan DM) 6.25 mg Q6H PRN ORAL For Cough 11/27/16 11:15 12/27/16 11:14 11/29/16 11:51 Quetiapine Fumarate (SEROquel) 100 mg QHS ORAL 11/26/16 21:00 12/26/16 20:59 11/29/16 21:04 Ranitidine HCl (Zantac) 150 mg TWICE A DAY ORAL 11/26/16 18:00 12/26/16 17:59 11/30/16 08:10 Tiotropium [place] (Spiriva Inhaler) 1 puff DAILY INH 11/26/16 20:00 12/26/16 19:59 11/30/16 08:06 Zolpidem Tartrate (Ambien) 5 mg HSPRN PRN ORAL Insomnia 11/26/16 21:00 12/26/16 20:59 11/27/16 23:42 NICKI STONE DO Nov 30, 2016 12:16
[2016-11-30] MEDS: Azithromycin 250mg tab ORAL SCH (13:39)
[2016-11-30 16:08] VITALS: BP 120/88
--- NOTE | 2016-11-30 18:58 | General Progress Note ---
Assessment/Plan Problem List: (1) COPD (chronic obstructive pulmonary disease) ICD Codes: J44.9 - Chronic obstructive pulmonary disease, unspecified SNOMED: 55644070 (2) Depression ICD Codes: F32.9 - Major depressive disorder, single episode, unspecified SNOMED: 20887705 Assessment/Plan Start Alesha taper steroids tomorrow per pulm Bronchodilators Subjective Allergies: Coded Allergies: TETRACYCLINE (Verified Allergy, Severe, Itching, 04/28/16) SWELLING/ITCHING Subjective feels better C/O itching Objective Last 24 Hour Vital Signs Date Time Temp Pulse Resp B/P Pulse Ox O2 Delivery O2 Flow Rate FiO2 11/30/16 16:08 98.2 98 20 120/88 96 Nasal Cannula 3.0 11/30/16 14:38 97.9 11/30/16 13:08 86 18 97 Nasal Cannula 3.0 32 11/30/16 12:58 99 18 97 Nasal Cannula 2.0 32 11/30/16 11:28 97.9 92 20 140/79 96 Nasal Cannula 3.0 11/30/16 08:20 110 20 98 Nasal Cannula 2.0 11/30/16 08:17 110 20 98 Nasal Cannula 3.0 32 11/30/16 08:12 98.0 106 20 135/96 94 Nasal Cannula 3.0 11/30/16 07:58 Nasal Cannula 2.0 28 11/30/16 07:57 98 Nasal Cannula 2.0 28 11/30/16 07:55 110 18 98 Nasal Cannula 3.0 32 11/30/16 07:45 110 20 94 Nasal Cannula 2.0 32 11/30/16 04:00 97.3 61 20 112/70 94 Room Air 11/30/16 01:26 Nasal Cannula 3.0 32 11/30/16 01:26 Nasal Cannula 3.0 32 11/30/16 00:00 97.9 82 18 97/74 95 Room Air 11/29/16 20:00 97.7 96 20 119/94 96 Nasal Cannula 2.0 11/29/16 19:24 108 20 98 Nasal Cannula 3.0 32 11/29/16 19:14 104 20 94 Nasal Cannula 3.0 32 11/29/16 19:14 Nasal Cannula 3.0 32 11/29/16 19:14 94 Nasal Cannula 3.0 32 Intake and Output 11/29/16 11/30/16 19:00 07:00 Intake Total 1010 ml 440 ml Balance 1010 ml 440 ml Intake Oral 1010 ml 440 ml # Voids 5 6 Height (Feet): 5 Height (Inches): 4.00 Weight (Pounds): 130 Cardiovascular: normal rate Respiratory/Chest: lungs clear Edema: no edema noted Generalized RAQUEL VILLALBA Nov 30, 2016 18:58
[2016-11-30 20:00] VITALS: BP 125/93
--- NOTE | 2016-11-30 22:30 | Consultation ---
DATE OF CONSULTATION: 11/29/2016 HISTORY OF PRESENT ILLNESS: This is a 66-year-old female, who is in outpatient IOP for depression. Psychiatry was consulted. The patient is currently on Seroquel. During the evaluation, the patient continues to present with anxiety and depressive symptoms with the current psychotropic medication. She however continues to have decreased energy and sadness, which is mild. PAST PSYCHIATRIC HISTORY: She has a history of depression, she has been in IOP at [place] for depression. She has been prescribed Seroquel. PAST MEDICAL HISTORY: Significant for pneumonia, arthritis, and COPD. ALLERGIES: Tetracycline. SUBSTANCE ABUSE HISTORY: No history of illicit drug use or alcohol. MENTAL STATUS EXAMINATION: The patient is alert and oriented times self, place, and situation she is in. Mood is depressed. Affect is constricted. Congruent with mood. Thought process is linear. Thought content, no suicidal or homicidal ideation. PLAN: 1. The patient will be continued on Seroquel. 2. We will continue to follow and readjust the medications. Juanjose Smalls M.D. DR: Ayse JOB#: [id number] CC:
--- NOTE | 2016-11-30 23:00 | Progress Note ---
DATE: 11/30/2016 SUBJECTIVE: The patient is relatively doing well. No behavior issues. Calm and cooperative. Mood is depressed. She has fatigue and decreased energy. Compliant with medications. Her appetite is adequate. No complaint. She had anxiety about her current medical condition. MENTAL STATUS EXAMINATION: Alert and oriented to self, place, situation, and date. Mood is dysphoric. Affect is constricted. Congruent with mood and appropriate. Thought process is linear. Thought content, no suicidal or homicidal ideations. No delusions. No auditory or visual hallucinations. Cognition including memory, concentration, and attention intact. Insight and judgment is fair. ASSESSMENT: Major depressive disorder. PLAN: 1. The patient will be continued on Seroquel. 2. Provide the patient with supportive therapy and reality orientation. Juanjose Smalls M.D. DR: CHRIS JOB#: [id number] CC:
[2016-12-01 00:11] VITALS: BP 104/74
[2016-12-01] MEDS: DuoNeb 0.5-3(2.5)mg/3ml neb HHN SCH ×3 (01:11→13:38)
[2016-12-01 04:15] VITALS: BP 102/73
[2016-12-01] MEDS: Solu-MEDROL 40mg Inj IVP SCH ×2 (08:09→20:56)
[2016-12-01] MEDS: Citalopram 20mg Tab ORAL SCH (08:10)
[2016-12-01] MEDS: Norco 10mg/325mg tab ORAL PRN ×3 (08:11→19:13)
[2016-12-01 08:17] VITALS: BP 120/77
[2016-12-01] MEDS: Docusate 100mg cap ORAL SCH ×2 (09:00→17:28)
--- NOTE | 2016-12-01 11:33 | Pulmonology Progress Note ---
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 doing well today cont steroids and taper in am 60mg daily and taper 20 mg every 3 days upon dc tobacco cessation has o2 at home abx HHN dc planning watch io Subjective Constitutional: Reports: no symptoms HEENT: Repors: no symptoms Cardiovascular: Reports: no symptoms Neurologic: Reports: no symptoms Skin: Reports: no symptoms Allergies: Coded Allergies: TETRACYCLINE (Verified Allergy, Severe, Itching, 04/28/16) SWELLING/ITCHING Subjective doing well on RA this am, using o2 as needed no distress no wheezing at this time tolerating po no fever noted cough better Objective Last 24 Hour Vital Signs Date Time Temp Pulse Resp B/P Pulse Ox O2 Delivery O2 Flow Rate FiO2 12/01/16 09:50 Nasal Cannula 2.0 12/01/16 09:47 Nasal Cannula 2.0 12/01/16 08:17 98.7 72 20 120/77 94 Room Air 12/01/16 07:24 99 18 99 Nasal Cannula 2.0 12/01/16 07:11 99 Nasal Cannula 2.0 12/01/16 07:11 Nasal Cannula 2.0 12/01/16 07:10 95 18 99 Nasal Cannula 2.0 12/01/16 07:10 95 20 Nasal Cannula 2.0 12/01/16 04:15 98.1 74 19 102/73 98 Nasal Cannula 2.0 12/01/16 01:19 88 18 99 Nasal Cannula 2.0 28 12/01/16 01:08 60 14 98 Nasal Cannula 2.0 28 12/01/16 01:08 28 12/01/16 00:11 97.2 89 18 104/74 92 Nasal Cannula 2.0 11/30/16 20:00 97.7 94 19 125/93 94 Nasal Cannula 2.0 11/30/16 19:48 80 16 99 Nasal Cannula 2.0 11/30/16 19:30 98 Nasal Cannula 2.0 28 11/30/16 19:30 Nasal Cannula 2.0 28 11/30/16 19:30 68 16 98 Nasal Cannula 2.0 28 11/30/16 19:30 28 11/30/16 16:08 98.2 98 20 120/88 96 Nasal Cannula 3.0 11/30/16 14:38 97.9 11/30/16 13:08 86 18 97 Nasal Cannula 3.0 32 11/30/16 12:58 99 18 97 Nasal Cannula 2.0 32 Intake and Output 11/30/16 12/01/16 19:00 07:00 Intake Total 1200 ml 240 ml Output Total 4 ml Balance 1196 ml 240 ml Intake Oral 1200 ml 240 ml Output Urine Total 4 ml # Voids 2 2 General Appearance: cachetic HEENT: atraumatic, mucous membranes moist Respiratory/Chest: rhonchi Cardiovascular: normal rate, regular rhythm Abdomen: soft, non tender, no organomegaly, non distended Extremities: no cyanosis Skin: no rash Neurologic/Psychiatric: store consultant II-XII grossly normal, no motor/sensory deficits, oriented x 3, responsive Lymphatic: no neck adenopathy Musculoskeletal: no effusion Microbiology Date/Time Source Procedure Growth Status 11/30/16 07:00 Urine,Clean Catch Urine Culture - Preliminary Mixed Gram Positive Organism Resulted Current Medications Medications (Trade) Dose Ordered Sig/Josh Route PRN Reason Start Time Stop Time Status Last Admin Dose Admin Acetaminophen (Tylenol) 650 mg Q4H PRN ORAL T>100.5 11/26/16 18:00 12/26/16 17:59 Acetaminophen/ Hydrocodone Bitart ([place] 10/325) 1 ea Q4H PRN ORAL Pain Scale (6-10) 11/26/16 20:00 12/03/16 19:59 12/01/16 08:11 Albuterol/ Ipratropium (DuoNeb 0.5-3(2.5)mg/3ml) 3 ml Q6HRT HHN 11/26/16 19:00 12/01/16 18:59 12/01/16 07:10 Azithromycin (Zithromax) 250 mg Q24H ORAL 11/27/16 14:00 12/04/16 13:59 11/30/16 13:39 Citalopram Hydrobromide (celeXA) 40 mg DAILY ORAL 11/26/16 18:00 12/26/16 17:59 12/01/16 08:10 Dextrose (Dextrose 50%) STAT PRN IV Hypoglycemia 11/26/16 18:00 12/26/16 17:59 Docusate Sodium (Colace) 100 mg TWICE A DAY ORAL 11/26/16 18:00 12/26/16 17:59 11/28/16 17:24 Fexofenadine HCl (Alesha) 60 mg TWICE A DAY ORAL 11/30/16 20:00 12/30/16 19:59 12/01/16 08:10 Magnesium Hydroxide (Mom) 30 ml HSPRN PRN ORAL Constipation 11/26/16 21:00 12/26/16 20:59 Methylprednisolone Sodium Succinate (Solu-MEDROL) 40 mg EVERY 12 HOURS IVP 11/26/16 18:00 12/26/16 17:59 12/01/16 08:09 Ondansetron HCl (Zofran) 4 mg Q6H PRN IVP Nausea & Vomiting 11/26/16 18:00 12/26/16 17:59 Promethazine HCl/ Dextromethorphan (Phenergan DM) 6.25 mg Q6H PRN ORAL For Cough 11/27/16 11:15 12/27/16 11:14 11/29/16 11:51 Quetiapine Fumarate (SEROquel) 100 mg QHS ORAL 11/26/16 21:00 12/26/16 20:59 11/30/16 20:42 Ranitidine HCl (Zantac) 150 mg TWICE A DAY ORAL 11/26/16 18:00 12/26/16 17:59 12/01/16 08:10 Tiotropium [place] (Spiriva Inhaler) 1 puff DAILY INH 11/26/16 20:00 12/26/16 19:59 11/30/16 08:06 Zolpidem Tartrate (Ambien) 5 mg HSPRN PRN ORAL Insomnia 11/26/16 21:00 12/26/16 20:59 11/27/16 23:42 NICKI STONE DO Dec 01, 2016 11:33
[2016-12-01 12:00] VITALS: BP 137/91
[2016-12-01] MEDS: Azithromycin 250mg tab ORAL SCH (14:00)
[2016-12-01 16:48] VITALS: BP 130/87
[2016-12-01 20:31] VITALS: BP 123/90
[2016-12-01] MEDS: Zolpidem 5mg tab ORAL PRN (20:56)
[2016-12-02 04:00] VITALS: BP 131/85
[2016-12-02] MEDS: Norco 10mg/325mg tab ORAL PRN (05:13)
[2016-12-02 08:10] VITALS: BP 141/90
[2016-12-02] MEDS: Citalopram 20mg Tab ORAL SCH (08:11)
[2016-12-02] MEDS: Solu-MEDROL 40mg Inj IVP SCH (08:11)
[2016-12-02] MEDS: Docusate 100mg cap ORAL SCH (08:12)
[2016-12-02] MEDS ORDERED: DuoNeb 0.5-3(2.5)mg/3ml neb HHN PRN (08:30)
[2016-12-02] MEDS ORDERED: PHENERGAN6.25 MG/5 ORAL (09:44)
--- NOTE | 2016-12-02 09:47 | Consultation ---
Consult Note Assessment/Plan DC dictated # [id number] RAQUEL VILLALBA Dec 02, 2016 09:47
--- NOTE | 2016-12-02 11:02 | Discharge Summary ---
DATE OF ADMISSION: 11/26/2016 DATE OF DISCHARGE: 12/02/2016 CHIEF COMPLAINT: Shortness of breath. HISTORY OF PRESENT ILLNESS: This is a 66-year-old female with history of heavy smoking and chronic obstructive pulmonary disease was admitted with shortness of breath and diagnosis of chronic obstructive pulmonary disease exacerbation. HOSPITAL COURSE: The patient was started on hand-held nebulizer, DuoNeb, oxygen, cough medicine as well as intravenous steroids. She was seen by Dr. Sun in pulmonary consultation. Her condition gradually improved. The patient was also maintained on azithromycin possible acute bronchitis. Alesha was added because she started having itching. Eventually, she was discharged home in stable condition. DISCHARGE DIAGNOSES: 1. Chronic obstructive pulmonary disease exacerbation. 2. Acute bronchitis. DISCHARGE MEDICATIONS: Please refer to discharge medication list. Gabriel Malagon M.D. DR: ELVER JOB#: [id number] CC:
--- NOTE | 2016-12-02 16:04 | Pulmonology Progress Note ---
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 agree w dc plan taper steroids may need long-term steroids if flares on taper Subjective Respiratory: Denies: shortness of breath Allergies: Coded Allergies: TETRACYCLINE (Verified Allergy, Severe, Itching, 04/28/16) SWELLING/ITCHING Objective Last 24 Hour Vital Signs Date Time Temp Pulse Resp B/P Pulse Ox O2 Delivery O2 Flow Rate FiO2 12/02/16 08:42 104 20 98 Nasal Cannula 2.0 28 12/02/16 08:41 106 18 99 Nasal Cannula 2.0 28 12/02/16 08:10 97.5 86 18 141/90 94 Nasal Cannula 2.0 12/02/16 07:35 98 Nasal Cannula 2.0 28 12/02/16 07:35 Nasal Cannula 2.0 28 12/02/16 04:00 97.9 77 18 131/85 98 Nasal Cannula 2.0 12/01/16 20:31 97.3 101 18 123/90 94 Room Air 12/01/16 20:17 94 18 Room Air 12/01/16 20:17 94 Room Air 12/01/16 20:17 Room Air 12/01/16 16:48 99.2 115 22 130/87 93 Room Air Intake and Output 12/01/16 12/02/16 19:00 07:00 Intake Total 780 ml 300 ml Balance 780 ml 300 ml Intake Oral 780 ml 300 ml # Voids 3 1 General Appearance: no acute distress Respiratory/Chest: decreased breath sounds Microbiology Date/Time Source Procedure Growth Status 11/30/16 07:00 Urine,Clean Catch Urine Culture - Final Mixed Gram Positive Organism Complete MATT KAUFFMAN Dec 02, 2016 16:04
--- NOTE | 2016-12-02 22:30 | Progress Note ---
DATE: 12/02/2016 NOTE: INCOMPLETE DICTATION SUBJECTIVE: The patient is doing well. No behavioral issues. Depressive symptoms are Juanjose Smalls M.D. DR: BEE JOB#: [id number] CC:
== END 2016-12-02 11:10 | disposition home or self-care (01) | DRG 190 ==
LOC: EMR 09:33 → 4W 12:35 → EDBEDREQ 13:42 → EDBEDREQSVC 17:16 → EDBEDREQ 17:28 → 4W 11-28 19:46 → 3E 11-30 17:31
DX: J44.1 Chronic obstructive pulmonary disease with (acute) exacerbation (principal); J96.20 Acute and chronic respiratory failure, unspecified whether with hypoxia or hypercapnia; R64 Cachexia; F32.9 Major depressive disorder, single episode, unspecified; J20.9 Acute bronchitis, unspecified; J44.0 Chronic obstructive pulmonary disease with (acute) lower respiratory infection; Z88.8 Allergy status to other drugs, medicaments and biological substances; Z87.891 Personal history of nicotine dependence
CPT/HCPCS: 36415; 71010; 71250; 80053; 81001; 82550; 82553; 83605; 84443; 84484; 85007; 85025; 87040; 87086; 93005; 94640; 94664; 94760; J7620

== ENCOUNTER → 2020-01-12 | Day surgery (SDC) | payer MEDICARE, MEDICAID ==
--- NOTE | 2020-01-11 22:59 | Pre-Procedure Note/Attestation ---
Pre-Procedure Note/Attestation Complete Prior to Procedure Planned Procedure: left - Removal of cataract and placement of intraocular lens, left eye Procedure Narrative: Removal of cataract and placement of intraocular lens, left eye Indications for Procedure Pre-Operative Diagnosis: Cataract, combined, left eye Attestation I attest that I discussed the nature of the procedure; its benefits; risks and complications; and alternatives (and the risks and benefits of such alternatives), prior to the procedure, with the patient (or the patient's legal membership sales representative). I attest that, if there was a reasonable possibility of needing a blood hall sfusion, the patient (or the patient's legal membership sales representative) was given the [facility] standardized written summary, pursuant to the [place] Blood Safety Act ([place] Health and Safety Code # 1645, as amended). I attest that I re-evaluated the patient just prior to the surgery and that there has been no change in the patient's H&P, except as documented below: Blas Frazier MD Jan 11, 2020 22:59
[~2020-01-12] VITALS: Ht 167.6 cm; Wt 68.9 kg
[2020-01-12] VITALS (7 sets, daily range): BP systolic 127–141; BP diastolic 95–100
[~2020-01-12] MED LIST changes: +Acetylcholine Injection (OR) ONE; +Akten 3.5% 1ml Btl ONE; +BSS 15ml BTL ONE; +BSS 500ml btl ONE; +Bupivacaine 0.75% 30ml vial INJ ONE; +Cyclopentolate 1% Opth Sol 2ml ONE; +DALIRESP500 MCG PO; +EPINEPHrine 1mg/1ml Amp ONE; +Fluorescein Strips ONE; +LR 1000ml 1,000 ML IVLG SCH; +LR 1000ml ONE; +Lidocaine 1% MPF 10mg/ml 5ml ONE; +Lidocaine 2% MPF 5ml Vial INJ ONE; +Lidocaine 4% Amp 5ml ONE; +Maxitrol Opth Oint 3.5gm ONE; +NS Irrig 1000ml ONE; +PERCOCET 10-321 EAC1 ORAL; +PHENERGAN6.25 MG/5 ORAL; +Phenylephrine 10% Opth Soln 5ml ONE; +Povidone-Iodine 5% opth solution ONE; +Sodium Hyaluronate 10 mg/ml 0.85ml ONE; +Sterile Water Irrig 1000ml IRRIG ONE; +Tetracaine 0.5% Opth 4ml Soln ONE; +Tobradex Opth Susp 2.5ml ONE; +Tropicamide 1% Opth 15ml Soln ONE; +Vigamox Opth Soln 3ml ONE; +fentaNYL 100 mcg/2 mL IV ONE; +fentaNYL 100 mcg/2 mL IV PRN; +prednisoLONE acetate 1% Opth Susp 1ml ONE
[2020-01-12] MEDS: Phenylephrine 10% Opth Soln 5ml LEFT EYE SCH ×3 (10:49→11:17)
[2020-01-12] MEDS: Akten 3.5% 1ml Btl LEFT EYE SCH ×3 (10:49→11:17)
[2020-01-12] MEDS: Tropicamide 1% Opth 15ml Soln LEFT EYE SCH ×3 (10:50→11:16)
[2020-01-12] MEDS: Tobradex Opth Susp 2.5ml LEFT EYE SCH ×3 (10:50→11:17)
[2020-01-12] MEDS: Vigamox Opth Soln 3ml LEFT EYE SCH ×3 (10:50→11:17)
[2020-01-12] MEDS: Cyclopentolate 1% Opth Sol 2ml LEFT EYE SCH ×2 (11:03→11:17)
--- NOTE | 2020-01-12 11:13 | Anethesia Preoperative Eval ---
Anesthesia Pre-op PMH/ROS General Date of Evaluation: Jan 12, 2020 Time of Evaluation: 11:12 Anesthesiologist: Vahe ASA Score: ASA 3 Mallampati Score Class I : Soft palate, uvula, fauces, pillars visible Class II: Soft palate, uvula, fauces visible Class III: Soft palate, base of uvula visible Class IV: Only hard plate visible Mallampati Classification: Class II Surgeon: Freddie Diagnosis: L eye cataract Surgical Procedure: Cataract extraction Anesthesia History: none Social History: smoking - h/o Family History: no anesthesia problems Allergies: Coded Allergies: TETRACYCLINE (Verified Allergy, Severe, Itching, 04/28/16) SWELLING/ITCHING Medications: see eMAR Patient NPO?: Yes Past Medical History Cardiovascular: Reports: HTN - borderline; Denies: CAD, [place], valve dz, arrhythmia, other Pulmonary: Reports: COPD - on home O2; Denies: asthma, SULEMA, other Gastrointestinal/Genitourinary: Reports: GERD Neurologic/Psychiatric: Reports: depression/anxiety; Denies: dementia, CVA, TIA, other Endocrine: Reports: hypothyroidism; Denies: DM, steroids, other HEENT: Denies: cataract (L), cataract (R), glaucoma, [place] (L), [place] (R), other Hematology/Immune: Reports: anemia - borderline; Denies: DVT, bleeding disorder, other Musculoskeletal/Integumentary: Reports: OA; Denies: RA, DJD, DDD, edema, other PMH Narrative: as above PSxH Narrative: See H&P Anesthesia Pre-op Phys. Exam Physician Exam Last Vital Signs Date Time Temp Pulse Resp B/P (MAP) Pulse Ox O2 Delivery O2 Flow Rate FiO2 01/12/20 10:56 97.0 93 18 130/95 96 Room Air Constitutional: NAD Neurologic: CN 2-12 intact Cardiovascular: RRR, no M/R/G Respiratory: other - Diffuse wheezing bilateraly Gastrointestinal: S/NT/ND Airway Exam Mallampati Score: Class II MO: limited Neck: stiff ROM: limited Teeth: missing Dentures: no upper, no lower Anesthesia Pre-op A/P Labs see chart Studies Pre-op Studies: EKG - SR Risk Assessment & Plan Assessment: ASA 3 Plan: MAC Status Change Before Surgery: No Francois Cotter MD Jan 12, 2020 11:13
--- NOTE | 2020-01-12 12:50 | Discharge Instructions ---
Discharge Instructions Discharge Instructions Follow Up Orders Wear shield at all times except to place eye drops Continue preoperative eye drops followup tomorrow in Dr Frazier's office For Congestive Heart Failure Reminder Report to your physician any weight gain of 5 pounds or more in one week. Blas Frazier MD Jan 12, 2020 12:50
--- NOTE | 2020-01-12 12:52 | Immediate Post-Op Evaluation ---
Immediate Post-Op Evalulation Immediate Post-Op Evalulation Procedure: L eye cataract extraction with IOL Date of Evaluation: Jan 12, 2020 Time of Evaluation: 12:50 IV Fluids: 200 Blood Products: none Estimated Blood Loss: none Urinary Output: none Blood Pressure Systolic: 146 Blood Pressure Diastolic: 78 Pulse Rate: 86 Respiratory Rate: 22 O2 Sat by Pulse Oximetry: 96 Temperature (Fahrenheit): 97.8 Pain Score (1-10): 1 Nausea: No Vomiting: No Complications none Patient Status: awake, patent, none Hydration Status: adequate Francois Cotter MD Jan 12, 2020 12:52
--- NOTE | 2020-01-12 12:53 | Brief Operative Note ---
Immediate Post Operative Note Operative Note Pre-op Diagnosis: Cataract, combined, left eye Procedure: Phaco PC IOL left eye Use of Vision Blue for capsular staining Post-op Diagnosis: same as pre-op plus - Very dense cataract left eye Surgeon: Jeannette Frazier MD MS Flight/Transport Nurse: none Anesthesiologist: Dr Cotter Anesthesia: local, MAC Specimen: none Complications: none Fluids: see chart Implant(s) used?: Yes - palacio ZCB00 21.0 Blas Frazier MD Jan 12, 2020 12:53
[2020-01-13 08:35] VITALS: BP 148/76
--- NOTE | 2020-01-13 08:35 | 48 Hour Post Anesthesia Eval ---
Post Anesthesia Evaluation Procedure: L eye cataract extraction with IOL Date of Evaluation: Jan 12, 2020 Time of Evaluation: 14:10 Blood Pressure Systolic: 148 0: 76 Pulse Rate: 82 Respiratory Rate: 24 Temperature (Fahrenheit): 97.6 O2 Sat by Pulse Oximetry: 98 Airway: patent Nausea: No Vomiting: No Pain Intensity: 1 Hydration Status: adequate Cardiopulmonary Status: stable Mental Status/LOC: patient returned to baseline Follow-up Care/Observations: N/a Post-Anesthesia Complications: none Follow-up care needed: ready to discharge Francois Cotter MD Jan 13, 2020 08:35
--- NOTE | 2020-01-14 00:45 | Operative Note - Dictated ---
DATE OF OPERATION: 01/12/2020 SURGEON: Blas Frazier M.D. SOCIAL WORK ASSOCIATE SURGEON: None. ANESTHESIOLOGIST: Francois Cotter M.D. ANESTHESIA: Local/standby/monitored anesthesia care. PREOPERATIVE DIAGNOSIS: Cataract, combined, dense, left eye. POSTOPERATIVE DIAGNOSIS: Cataract, combined, dense, left eye. PROCEDURE: 1. Phacoemulsification of cataract, left eye. 2. Placement of posterior chamber intraocular lens, left eye (model John, ZCB00, power 21.0). 3. Use of VisionBlue for capsular staining. SPECIMENS: None. COMPLICATIONS: None. INDICATIONS FOR SURGERY: The patient has had a painless progressive decrease in her visual acuity in the left eye secondary to cataract. The patient understands the risks of surgery including infection, bleeding, need for further surgery, loss of vision, no improvement in vision, loss of the eye, loss of life, glaucoma, retinal detachment, and elects to proceed with surgery. FINDINGS: The patient had a +4 white cataract with +3 cortical spoking and +4 posterior subcapsular cataract. Because of the dense nature of the cataract, the red reflex was very poor and this necessitated the use of using VisionBlue for staining the anterior capsule. OPERATIVE NOTE: After informed consent was obtained, the patient was brought into the operating room and placed in the supine position. Cardiac and respiratory monitors were attached. A time-out was performed and all criteria were met and everyone in the room agreed. The left eye was then draped and prepped in sterile manner for ocular surgery. A lid speculum was placed in the eye. Lidocaine 1%, preservative-free, was injected at the approximate 2 o'clock limbus. A conjunctival peritomy from 2 o'clock to 3 o'clock was made and dissected posteriorly. Hemostasis was maintained with bipolar cautery. The 2.8 mm limbal incision was made centered at approximately 2:30 and dissected anteriorly. Paracentesis was made at approximately 5 o'clock and Shugarcaine was injected into the anterior chamber, followed by an air bubble. VisionBlue for the capsular staining was then injected and the anterior capsule was gently wiped with the VisionBlue stain. VisionBlue was then irrigated from the anterior chamber and Healon was injected into the anterior chamber. The anterior chamber was then entered using a 2.8 mm keratome through the limbal incision. An anterior capsulorrhexis was then performed. Hydrodissection and hydrodelineation of the lens was then performed. The lens was then phacoemulsified using divide and conquer four-quadrant technique. Residual cortical material was then aspirated. The lens was taken from its package, placed into the cartridge, and Healon was injected into the anterior chamber and capsular bag, and then the tip of the cartridge was placed through the limbal incision and lens was injected into the capsular bag and centered with a [place]inskey hook. Healon was then aspirated from the anterior chamber and capsular bag. One 10-0 nylon interrupted suture was then placed through the limbal incision and the knot was rotated and buried. All wounds were hydrated and closed also. The wounds were checked and found to be watertight. The lens was visualized and both haptics and the optic were in the capsular bag and centered along the 9:00 to 3:00 meridian. The conjunctiva was then closed with forceps cautery. The lid speculum and drapes were removed from the eye and the intraocular lens was inspected one more time and found to have both haptics and the optic in the bag. Drops of moxifloxacin, TobraDex, and Pred Forte were applied to the eye, followed by Maxitrol ointment and shield. The patient tolerated the procedure well and left the operating room awake, alert, and in stable condition. Note, at the beginning of the case, the patient was unable to move her eyes downwards and after a time-out was performed, local anesthesia was given, and a retrobulbar block, followed by modified block was given using a 50:50 mixture of 0.75% Marcaine, 1% lidocaine. At the end of the case, the patient did have good motility of the globe and good movement of the eyelid. She was easily able to close it and blink without problems though. Blas Frazier M.D. DR: VENKAT JOB#: [id number] CC:
== END | disposition home or self-care (01) ==
LOC: SUR 09:27
DX: H25.012 Cortical age-related cataract, left eye (principal); H25.042 Posterior subcapsular polar age-related cataract, left eye; I10 Essential (primary) hypertension; Z87.891 Personal history of nicotine dependence; J44.9 Chronic obstructive pulmonary disease, unspecified; Z99.81 Dependence on supplemental oxygen; K21.9 Gastro-esophageal reflux disease without esophagitis; F32.9 Major depressive disorder, single episode, unspecified; F41.9 Anxiety disorder, unspecified; M19.90 Unspecified osteoarthritis, unspecified site; E07.9 Disorder of thyroid, unspecified
CPT/HCPCS: 66984; 94003; J0171; J1100; J2704; J3010; J3490; J7120; U0002; V2632; 94150

== ENCOUNTER → 2020-02-02 | Day surgery (SDC) | payer MEDICARE, MEDICAID ==
--- NOTE | 2020-02-01 21:28 | Pre-Procedure Note/Attestation ---
Pre-Procedure Note/Attestation Complete Prior to Procedure Planned Procedure: right - removal of cataract and placement of intraocular lens, right eye Procedure Narrative: Removal of cataract and placement of intraocular lens right eye Indications for Procedure Pre-Operative Diagnosis: Cataract, combined, right eye Attestation I attest that I discussed the nature of the procedure; its benefits; risks and complications; and alternatives (and the risks and benefits of such alternatives), prior to the procedure, with the patient (or the patient's legal support representative). I attest that, if there was a reasonable possibility of needing a blood t ransfusion, the patient (or the patient's legal support representative) was given the [facility] standardized written summary, pursuant to the [place] Blood Safety Act ([place] Health and Safety Code # 1645, as amended). I attest that I re-evaluated the patient just prior to the surgery and that there has been no change in the patient's H&P, except as documented below: Blas Frazier MD Feb 01, 2020 21:28
[2020-02-02] VITALS (16 sets, daily range): BP systolic 72–113; BP diastolic 42–77
[~2020-02-02] VITALS: Ht 167.6 cm; Wt 68.9 kg
[~2020-02-02] MED LIST changes: -Acetylcholine Injection (OR) ONE; +Albuterol ud Inhalation HHN ONE; -BSS 15ml BTL ONE; -BSS 500ml btl ONE; -Bupivacaine 0.75% 30ml vial INJ ONE; -Cyclopentolate 1% Opth Sol 2ml ONE; -EPINEPHrine 1mg/1ml Amp ONE; -Fluorescein Strips ONE; -Lidocaine 1% MPF 10mg/ml 5ml ONE; -Lidocaine 2% MPF 5ml Vial INJ ONE; -Lidocaine 4% Amp 5ml ONE; -Maxitrol Opth Oint 3.5gm ONE; -Phenylephrine 10% Opth Soln 5ml ONE; -Povidone-Iodine 5% opth solution ONE; -Sodium Hyaluronate 10 mg/ml 0.85ml ONE; -Tetracaine 0.5% Opth 4ml Soln ONE; -Vigamox Opth Soln 3ml ONE; -prednisoLONE acetate 1% Opth Susp 1ml ONE
[2020-02-02] MEDS: Ciprofloxacin Opth Soln 5ml RIGHT EYE SCH ×3 (06:58→07:15)
[2020-02-02] MEDS: Akten 3.5% 1ml Btl RIGHT EYE SCH ×3 (06:58→07:15)
[2020-02-02] MEDS: Tobradex Opth Susp 2.5ml RIGHT EYE SCH ×3 (06:58→07:15)
[2020-02-02] MEDS: Tropicamide 1% Opth 15ml Soln RIGHT EYE SCH ×3 (06:58→07:14)
[2020-02-02] MEDS: Phenylephrine 10% Opth Soln 5ml RIGHT EYE SCH ×3 (06:58→07:14)
--- NOTE | 2020-02-02 07:17 | Anethesia Preoperative Eval ---
Anesthesia Pre-op PMH/ROS General Date of Evaluation: Feb 02, 2020 Time of Evaluation: 07:14 Anesthesiologist: Vahe ASA Score: ASA 3 Mallampati Score Class I : Soft palate, uvula, fauces, pillars visible Class II: Soft palate, uvula, fauces visible Class III: Soft palate, base of uvula visible Class IV: Only hard plate visible Mallampati Classification: Class II Surgeon: Freddie Diagnosis: R eye cataract Surgical Procedure: Cataract extraction Anesthesia History: none Social History: smoking - h/o Family History: no anesthesia problems Allergies: Coded Allergies: TETRACYCLINE (Verified Allergy, Severe, Itching, 04/28/16) SWELLING/ITCHING Medications: see eMAR Patient NPO?: Yes Past Medical History Cardiovascular: Reports: HTN - Borderline; Denies: CAD, [place], valve dz, arrhythmia, other Pulmonary: Reports: COPD - stable on inhalers; Denies: asthma, SULEMA, other Gastrointestinal/Genitourinary: Reports: GERD; Denies: CRI, ESRD, other Neurologic/Psychiatric: Reports: depression/anxiety; Denies: dementia, CVA, TIA, other Endocrine: Reports: hypothyroidism; Denies: DM, steroids, other HEENT: Reports: cataract (L), cataract (R); Denies: glaucoma, [place] (L), [place] (R), other Hematology/Immune: Reports: anemia - mild Musculoskeletal/Integumentary: Reports: OA; Denies: RA, DJD, DDD, edema, other PMH Narrative: as above PSxH Narrative: See H&P Anesthesia Pre-op Phys. Exam Physician Exam Last Vital Signs Date Time Temp Pulse Resp B/P (MAP) Pulse Ox O2 Delivery O2 Flow Rate FiO2 02/02/20 07:01 96.8 104 18 108/74 94 Nasal Cannula 3 Constitutional: NAD Neurologic: CN 2-12 intact Cardiovascular: RRR, no M/R/G Respiratory: other - some wheezing Gastrointestinal: S/NT/ND Airway Exam Mallampati Score: Class II MO: limited Neck: stiff ROM: limited Teeth: missing Dentures: no upper, no lower Anesthesia Pre-op A/P Labs see chart Studies Pre-op Studies: EKG - SR Risk Assessment & Plan Assessment: ASA 2 Plan: MAC Status Change Before Surgery: No Pre-Antibiotics Drug: none Francois Cotter MD Feb 02, 2020 07:17
--- NOTE | 2020-02-02 08:53 | Discharge Instructions ---
Discharge Instructions Discharge Instructions Follow Up Orders Wear shield at all times except to place eye drops Continue preop eye drops Followup tomorrow in Dr Frazier's office For Congestive Heart Failure Reminder Report to your physician any weight gain of 5 pounds or more in one week. Blas Frazier MD Feb 02, 2020 08:53
--- NOTE | 2020-02-02 08:56 | Brief Operative Note ---
Immediate Post Operative Note Operative Note Pre-op Diagnosis: Cataract, combined, right eye Procedure: Phaco PC IOL right eye Use of Vision Blue for capsular staining Post-op Diagnosis: same as pre-op Surgeon: Jeannette Frazier MD MS Surgical Assistant: none Anesthesiologist: Dr Cotter Anesthesia: local, MAC Specimen: none Complications: none Fluids: see chart Implant(s) used?: Yes - ZCB00 22.5 Blas Frazier MD Feb 02, 2020 08:56
--- NOTE | 2020-02-02 09:03 | Immediate Post-Op Evaluation ---
Immediate Post-Op Evalulation Immediate Post-Op Evalulation Procedure: R eye cataract extraction with IOL Date of Evaluation: Feb 02, 2020 Time of Evaluation: 09:02 IV Fluids: 400 Blood Products: none Estimated Blood Loss: none Urinary Output: none Blood Pressure Systolic: 114 Blood Pressure Diastolic: 56 Pulse Rate: 84 Respiratory Rate: 24 O2 Sat by Pulse Oximetry: 96 Temperature (Fahrenheit): 97.6 Pain Score (1-10): 1 Nausea: No Vomiting: No Complications none Patient Status: awake, patent, none Hydration Status: adequate Francois Cotter MD Feb 02, 2020 09:03
--- NOTE | 2020-02-02 10:15 | Operative Note - Dictated ---
DATE OF OPERATION: 02/02/2020 SURGEON: Blas Frazier MD. TESTING MANAGER SURGEON: None. ANESTHESIOLOGIST: Francois Cotter MD. ANESTHESIA: Local/standby/monitored anesthesia care. PREOPERATIVE DIAGNOSIS: Cataract, combined, right eye. POSTOPERATIVE DIAGNOSIS: Cataract, combined, right eye. PROCEDURE: 1. Phacoemulsification of cataract, right eye. 2. Placement of posterior chamber intraocular lens, right eye (model, [id number], power 22.5). 3. Use of VisionBlue for capsular staining. COMPLICATIONS: None. SPECIMENS: None. INDICATIONS FOR SURGERY: The patient had the painless progressive decrease in visual acuity in the right eye secondary to cataract. The patient understands the risks of surgery including infection, bleeding, need for further surgery, loss of vision, no improvement in vision, loss of the eye, loss of life, glaucoma, retinal detachment, and understands these risks and elects to proceed with surgery. FINDINGS: The patient had a +3 nuclear sclerotic cataract as well as a +2 cortical cataract and +2 anterior subcapsular cataract. These combined necessitated use of the VisionBlue for capsular staining because of poor red reflex. OPERATIVE NOTE: After informed consent was obtained, the patient was brought to the operative room, placed in the supine position. Cardiac and respiratory monitors were attached. Time-out was performed and all criteria were met in the room and everyone in the room agreed. The right eye was then draped and prepped in a sterile manner for ocular surgery. The lid speculum was placed in the eye. A 1% lidocaine preservative-free was injected at approximate 9 o'clock limbus. A conjunctiva peritomy from approximately 08:30 to 09:30 was made and dissected posteriorly. Hemostasis was maintained with bipolar cautery. A 2.8 mm limbal incision was made centered at approximately 9 o'clock and dissected anteriorly. Paracentesis was made at approximately 12 o'clock and Shugarcaine was injected into the anterior chamber followed by an air bubble. VisionBlue was then injected into the anterior chamber capsular staining. Once the capsule was stained, the VisionBlue was irrigated from the anterior chamber. Healon was placed into the anterior chamber. The anterior chamber was then entered using a 2.6 mm keratome through the limbal incision. An anterior capsulorrhexis was then performed. Hydrodissection and hydrodelineation of the lens was then performed. There was a small anterior rent in the anterior capsule at approximately 6:30, but that did not go past the equator or even past superior to the equator of the capsule. The capsule stayed intact during the entire procedure. The lens was then phacoemulsified using divide and conquer four-quadrant technique. Residual cortical material was then aspirated. Healon was placed into the anterior chamber and capsular bag. The lens was taken from its package, placed into the cartridge and the tip of the cartridge was placed through the limbal incision. The lens was injected into the capsular bag and centered nicely with a [place] hook along the 9 o'clock to the 3 o'clock meridian. Healon was aspirated from the anterior chamber capsular bag. Miochol was injected into the anterior chamber and the pupil came down nicely and round. The optic and both haptics stayed in the capsular bag during the entire procedure. One 10-0 nylon interrupted suture was then placed through the limbal incision. The knot was rotated and buried and all wounds were previously hydrated closed also. Wounds were checked and found to be watertight. The conjunctiva was then closed with forceps cautery. The lens was then reexamined and the optic and both haptics were in the capsular bag centered along the 3 o ' clock to 9 o ' clock meridian. The lid speculum and drapes were removed from the eye and drops of Pred Forte and TobraDex were applied to the eye followed by Maxitrol ointment and then a shield. The patient tolerated the procedure well and left the operating room awake, alert, and in stable condition. Monica Frazier M.D. DR: Mina JOB#: [id number] CC:
--- NOTE | 2020-02-02 12:02 | 48 Hour Post Anesthesia Eval ---
Post Anesthesia Evaluation Procedure: R eye cataract extraction with IOL Date of Evaluation: Feb 02, 2020 Time of Evaluation: 12:00 Blood Pressure Systolic: 102 0: 56 Pulse Rate: 78 Respiratory Rate: 22 Temperature (Fahrenheit): 97.6 O2 Sat by Pulse Oximetry: 98 Airway: patent Nausea: No Vomiting: No Pain Intensity: 1 Hydration Status: adequate Cardiopulmonary Status: stable Follow-up Care/Observations: n/a Post-Anesthesia Complications: none Follow-up care needed: ready to discharge Francois Cotter MD Feb 02, 2020 12:02
== END | disposition home or self-care (01) ==
LOC: SUR 06:01
DX: H25.11 Age-related nuclear cataract, right eye (principal); H25.011 Cortical age-related cataract, right eye; Z88.8 Allergy status to other drugs, medicaments and biological substances; J44.9 Chronic obstructive pulmonary disease, unspecified; I10 Essential (primary) hypertension; K21.9 Gastro-esophageal reflux disease without esophagitis; F32.9 Major depressive disorder, single episode, unspecified; F41.9 Anxiety disorder, unspecified; E03.9 Hypothyroidism, unspecified; M19.90 Unspecified osteoarthritis, unspecified site; D64.9 Anemia, unspecified
CPT/HCPCS: 66984; 94003; J0171; J1100; J2704; J3010; J7120; U0002; V2632; 94150